=== PATIENT | female | born 1970 | race Caucasian/White ===

== ENCOUNTER 2020-11-27 13:57 | Outpatient (REF) | payer MEDICARE, SELFPAY ==
--- NOTE | ~2020-11-27 | XR_ITS ---
EXAMINATION: XR KNEE, RIGHT CLINICAL INFORMATION: Right knee pain COMPARISON: None TECHNIQUE: Four views of the right knee. FINDINGS: Bone alignment is normal. No fracture or dislocation is seen. Joint spaces are normal. There is no joint effusion. XR/XR knee RT 4V IMPRESSION: Normal right knee.
== END 2020-11-27 13:58 | disposition home or self-care (01) ==
LOC: HO.HMGCX 13:57
PROVIDERS: Visit Provider Hospitalist
DX: M25.561 Pain in right knee (principal)
CPT/HCPCS: 73564

== ENCOUNTER 2021-10-07 00:50 | Inpatient (IN) | payer MEDICARE, OTHER, SELFPAY ==
[2021-10-07] VITALS (8 sets, daily range): BP systolic 120–141; BP diastolic 58–88; PULSE 70–95; RESP 12–18; TEMP 36.6–37.4; O2SAT 94–97; BMI 28.1
--- NOTE | ~2021-10-07 | CT_ITS ---
EXAMINATION: CT ABDOMEN AND PELVIS WITHOUT CONTRAST CLINICAL INFORMATION: Abdominal pain COMPARISON: 10/07/2021 TECHNIQUE: Multidetector volumetric imaging was performed from the superior aspect of the liver through the pubic symphysis. Sagittal and coronal reformatted images were obtained on the technologist's workstation. This CT examination was performed using dose optimization techniques as appropriate, variously including the following: *Automated exposure control *Adjustment of mA and/or kV according to patient size (this includes techniques or standardized protocols for targeted exams where dose is matched to indication/reason for exam; i.e. extremities or head) *Use of iterative reconstruction technique DLP: 692 mGy-cm FINDINGS: LUNG BASES: Minor atelectasis at the lung bases. No pleural effusions. LIVER, GALLBLADDER, AND BILIARY TREE: The unenhanced liver is unremarkable. No biliary dilatation. No focal hepatic masses. Gallstones are again observed within the gallbladder. No adjacent inflammatory change. No change. PANCREAS: Unremarkable. SPLEEN: Unremarkable. ADRENAL GLANDS: Unremarkable. KIDNEYS AND URETERS: No nephrolithiasis or hydronephrosis. No perinephric collections. BLADDER: Unremarkable. GASTROINTESTINAL TRACT: No bowel obstruction or right or left lower quadrant inflammatory change. The stomach however does appear to be diffusely thick walled and slightly indurated. This could reflect gastritis and is unchanged. Less fluid in the colon noted. ABDOMINAL WALL: No significant hernia noted. LYMPH NODES: Normal. VASCULAR: Unremarkable. PELVIC VISCERA: Unremarkable. OSSEOUS STRUCTURES: Again note is made of a plate and screw hardware in the right hemipelvis. No change. There is degenerative change in the lower lumbar spine. No change. CT/CT abdomen pelvis wo con IMPRESSION: Gallstones. Thick-walled stomach showing no change. No bowel obstruction. Fleischner guidelines were followed.
--- NOTE | ~2021-10-07 | CT_ITS ---
EXAMINATION: CT ABDOMEN AND PELVIS WITHOUT CONTRAST CLINICAL INFORMATION: Nausea/vomiting COMPARISON: None TECHNIQUE: Multidetector volumetric imaging was performed from the superior aspect of the liver through the pubic symphysis. Sagittal and coronal reformatted images were obtained on the technologist's workstation. This CT examination was performed using dose optimization techniques as appropriate, variously including the following: *Automated exposure control *Adjustment of mA and/or kV according to patient size (this includes techniques or standardized protocols for targeted exams where dose is matched to indication/reason for exam; i.e. extremities or head) *Use of iterative reconstruction technique DLP: 712 mGy-cm FINDINGS: LUNG BASES: Bibasilar subsegmental atelectasis. Coronary artery calcifications are present. LIVER, GALLBLADDER, AND BILIARY TREE: The liver is normal in size, shape, and attenuation. No biliary ductal dilatation is present. Cholelithiasis is noted. No appreciable gallbladder wall thickening or surrounding inflammation. PANCREAS: Unremarkable. SPLEEN: Unremarkable. ADRENAL GLANDS: Unremarkable. KIDNEYS AND URETERS: The kidneys are normal in size, shape, and attenuation. No hydronephrosis, hydroureter, or calculi seen. No perinephric stranding. BLADDER: Unremarkable. GASTROINTESTINAL TRACT: Small bowel is nondilated. Fluid is present within some segments of the colon, without significant wall thickening or disproportionate dilation. The appendix is unremarkable. No free fluid or free air is seen. ABDOMINAL WALL: No significant hernia is appreciated. LYMPH NODES: Normal. VASCULAR: Unremarkable. PELVIC VISCERA: Unremarkable. OSSEOUS STRUCTURES: There is plate and screw hardware along the right pelvis including the acetabulum and superior pubic ramus. There is degenerative change in the lower lumbar spine. CT/CT abdomen pelvis wo con IMPRESSION: 1. No evidence of bowel obstruction. Fluid is evident within some segments of the colon, which can be associated with diarrhea, without significant wall thickening. 2. Cholelithiasis. 3. Coronary artery calcifications. Correlation with cardiac risk factors is recommended.
--- NOTE | ~2021-10-07 | XR_ITS ---
EXAMINATION: XR CHEST CLINICAL INFORMATION: NG tube placement COMPARISON: None TECHNIQUE: Frontal view of the chest was obtained. FINDINGS: The enteric tube courses along the esophagus and into the proximal stomach. The side-port of the tube is approximately 3 cm above the level of the esophagogastric junction. Consider advancing the tube further into the stomach. Lungs are adequately expanded. The right diaphragm is elevated. Minimal linear opacity of scar or discoid atelectasis in the left midlung. No consolidation or pleural effusion. Cardiac silhouette has normal size and contour. There is dextroscoliosis of the thoracic spine. No pneumoperitoneum. XR/XR chest 1V IMPRESSION: * No acute pulmonary disease. * The tip of the NG tube is in the proximal stomach and side port of tube is projecting just above the level of the esophagogastric junction. Consider advancing the tube further into the stomach.
--- NOTE | 2021-10-07 01:55 | ECG_ITS ---
Test Reason : REPEAT Blood Pressure : / mmHG Vent. Rate : 081 BPM Atrial Rate : 081 BPM P-R Int : 180 ms QRS Dur : 082 ms QT Int : 384 ms P-R-T Axes : 059 081 019 degrees QTc Int : 446 ms Normal sinus rhythm Nonspecific T wave abnormality Abnormal ECG When compared with ECG of 07-OCT-2021 01:11, Nonspecific T wave abnormality now evident in Anterolateral leads Referred By: Nicki Willard Electronically Signed By:Danielito Lehman
[2021-10-07] MEDS: 0.9 % Sodium Chloride 1,000 ML 999 ML IV ×2 (02:08→06:08)
[2021-10-07 02:38] LABS: INTERNATIONAL NORM RATIO 0.9 (0.9-1.1); Prothrombin Time 10.5 SEC (9.9-13.0)
[2021-10-07 02:41] LABS: MANUAL DIFF FLAG NO
[2021-10-07 02:44] LABS: Basophils Percent Auto 0.4 % (0-2); Eosinophils Absolute Auto 0.1 X10*3/uL (0.0-0.4); Eosinophils Percent Auto 0.6 % (0-4); Hematocrit 44.6 % (37.0-47.0); Hemoglobin 14.9 g/dl (12.0-16.0); Imm Gran Abs Auto 0.04 X10*3/uL (0.00-0.03); Imm Gran Pct Auto 0.5 % (0.0-0.4); Lymphocytes Absolute Auto 1.6 X10*3/uL (1.2-4.9); Lymphocytes Percent Auto 19.8 % (20-40); Mean Corpuscular HGB Conc 33.4 g/dl (31.0-35.0); Mean Corpuscular Hemoglobin 29.7 pg (27.0-33.0); Mean Platelet Volume 9.5 fL (9.4-12.3); Monocytes Absolute Auto 0.5 X10*3/uL (0.1-1.2); Monocytes Percent Auto 6.2 % (2-11); Neutrophils Absolute Auto 5.9 x10*3/uL (2.0-8.3); Neutrophils Percent Auto 72.5 % (45-73); Platelet Count 201 X10*3/uL (160-400); Red Blood Count 5.01 X10*6/uL (4.20-5.50); Red Cell Distribution Width 13.4 % (11.0-16.0); White Blood Count 8.1 X10*3/uL (4.8-10.8)
[2021-10-07 02:51] LABS: Ethanol < 10 mg/dL
[2021-10-07 02:54] LABS: Acetaminophen LAB 29 mcg/mL (<30); Alanine Aminotransferase 13 U/L (0-31); Albumin Level 3.8 g/dL (3.5-5.0); Alkaline Phosphatase 76 U/L (39-117); Anion Gap 13 (12-20); Aspartate Amino Transferase 15 U/L (5-31); Bilirubin Total 0.3 mg/dL (0.0-1.0); Blood Urea Nitrogen 19 mg/dL (9-16); Calcium 9.3 mg/dL (8.4-10.2); Carbon Dioxide 17 mmol/L (22-29); Chloride 109 mmol/L (96-108); Creatinine Clr Calc Pharmacy 66.2; Estimated Glomerular Filt Rate > 60; Glucose Random 102 mg/dL (60-115); Lipase 32 U/L (8-78); Magnesium 2.4 mg/dL (1.6-2.6); Potassium 3.8 mmol/L (3.3-5.1); Salicylate < 5.0 mg/dL (15-30); Sodium 135 mmol/L (135-145); Total Protein 6.8 g/dL (6.5-8.0)
--- NOTE | 2021-10-07 03:40 | ED.OVERDOSE ---
HPI - Overdose General Chief Complaint: Overdose Stated Complaint: OD/SI Time Seen by Provider: 10/07/21 01:54 Source: patient Mode of arrival: EMS History of Present Illness HPI Narrative: 51-year-old female with history of depression is brought in by EMS for attempting intentional suicide earlier in the evening by taking 30 NyQuil capsules, 30 lithium capsules, 6-1 mg Klonopin as, 4-2 mg Ativan. She states that 2 hours afterwards she began vomiting and she thinks that this is due to a reaction of the medication and that prompted her to call EMS because she stated she did not feel well and ?it was not working anyway?. Patient otherwise denies any fever, chills and has a longstanding history of depression that is treated with ketamine as an outpatient. Patient reports being stressed out about work and not ?making enough money?. Related Data Previous Rx's Medication Instructions Recorded oxycodone-acetaminophen 5 mg-325 1 tab PO Q6H PRN #20 tab 11/27/20 mg tablet (Percocet) prednisone 20 mg tablet 20 mg PO .COMPLEX #18 tab 11/27/20 Allergies Allergy/AdvReac Type Severity Reaction Status Date / Time gabapentin Allergy Unknown Verified 11/27/20 13:51 Review of Systems Review of Systems: Pertinent positives and negatives as stated in HPI 10 point review of systems is otherwise negative. PMFSH Past Medical History Source: nursing notes reviewed Social History Social History Smoked in Last 30 Days: No Use of substances other than those prescribed or required for medical reasons: No Advance Directives: No Physical Exam Vital Signs: Vital Signs: Last Vital Signs Temp 97.9 F 10/07/21 03:15 Pulse 70 10/07/21 03:15 Resp 16 10/07/21 03:15 BP 124/69 10/07/21 03:15 Pulse Ox 94 10/07/21 03:15 BMI result Body Mass Index 28.1 VITAL SIGNS: Reviewed. GENERAL: Well developed, well nourished, in no acute distress. HEAD: Normocephalic/atraumatic EYES: PERRLA, EOMI EARS: Ext canals without abnormality OROPHARYNX: no oral lesions noted, posterior pharynx clear NECK: Supple, no adenopathy LUNGS: Normal breath sounds. No adventitious sounds or accessory muscle use. SpO2<94> CARDIOVASCULAR: Regular rate and rhythm without noted murmurs ABDOMEN: Soft, significant epigastric pain, non-distended with bowel sounds. MUSCULOSKELETAL: No tenderness, deformities, or effusions noted on gross inspection. EXTREMITIES: No cyanosis, clubbing or edema. SKIN: Inspection of the skin reveals no rashes, ulcerations NEUROLOGIC: Alert and oriented x 4. Strength and sensation to light touch were grossly intact x 4. Course Course Course Narrative: This is a 51-year-old female with history and clinical presentation consistent with intentional overdose, full labs and toxicology sent to the lab and EKG does not show abnormalities at this time. On calculation patient has ingested 9750 mg. Reevaluation(s) Reevaluation #1: Poison control recommendations: - Repeat CBC, CMP, ASA, Tylenol - Get [place] Level - Whole Bowel Irrigation (1-2L GoLytely/hr) - NS@200cc/hr - Start NAC Time: 03:40 MDM - Overdose Lab Data Result diagrams: 10/07/21 03:54 10/07/21 02:27 Labs: Lab Results 10/07/21 10/07/21 10/07/21 Range/Units 02:27 02:27 02:27 WBC (4.8-10.8) X10*3/uL RBC (4.20-5.50) X10*6/uL Hgb (12.0-16.0) g/dl Hct (37.0-47.0) % MCV (80.0-98.0) fL MCH (27.0-33.0) pg MCHC (31.0-35.0) g/dl RDW (11.0-16.0) % Plt Count (160-400) X10*3/uL MPV (9.4-12.3) fL Immature Gran % (Auto) (0.0-0.4) % Neut % (Auto) (45-73) % Lymph % (Auto) (20-40) % [place] % (Auto) (2-11) % Eos % (Auto) (0-4) % Baso % (Auto) (0-2) % Lymph # (Auto) (1.2-4.9) X10*3/uL [place] # (Auto) (0.1-1.2) X10*3/uL Eos # (Auto) (0.0-0.4) X10*3/uL Baso # (Auto) (0.0-0.2) X10*3/uL Abs Immat Gran (auto) (0.00-0.03) X10*3/uL Absolute Neuts (auto) (2.0-8.3) x10*3/uL Absolute Nucleated RBC (0.0-0.012) X10*3/uL Nucleated RBC % (auto) (0.0-0.2) /100WBC PT 10.5 (9.9-13.0) SEC INR 0.9 (0.9-1.1) Sodium 135 (135-145) mmol/L Potassium 3.8 (3.3-5.1) mmol/L Chloride 109 H (96-108) mmol/L Carbon Dioxide 17 L (22-29) mmol/L Anion Gap 13 (12-20) BUN 19 H (9-16) mg/dL Creatinine 0.91 (0.5-1.4) mg/dL Estim Creat Clear Calc 66.2 Estimated GFR > 60 Random Glucose 102 (60-115) mg/dL Calcium 9.3 (8.4-10.2) mg/dL Magnesium 2.4 (1.6-2.6) mg/dL Total Bilirubin 0.3 (0.0-1.0) mg/dL AST 15 (5-31) U/L ALT 13 (0-31) U/L Alkaline Phosphatase 76 (39-117) U/L Total Protein 6.8 (6.5-8.0) g/dL Albumin 3.8 (3.5-5.0) g/dL Lipase 32 (8-78) U/L Salicylates < 5.0 L (15-30) mg/dL Acetaminophen 29 (<30) mcg/mL [place] (0.60-1.20) mmol/L Ethyl Alcohol < 10 mg/dL 10/07/21 10/07/21 10/07/21 Range/Units 02:27 02:34 03:54 WBC 8.1 9.3 (4.8-10.8) X10*3/uL RBC 5.01 5.02 (4.20-5.50) X10*6/uL Hgb 14.9 14.8 (12.0-16.0) g/dl Hct 44.6 44.7 (37.0-47.0) % MCV 89.0 89.0 (80.0-98.0) fL MCH 29.7 29.5 (27.0-33.0) pg MCHC 33.4 33.1 (31.0-35.0) g/dl RDW 13.4 13.3 (11.0-16.0) % Plt Count 201 202 (160-400) X10*3/uL MPV 9.5 9.6 (9.4-12.3) fL Immature Gran % (Auto) 0.5 H 0.4 (0.0-0.4) % Neut % (Auto) 72.5 79.2 H (45-73) % Lymph % (Auto) 19.8 L 15.7 L (20-40) % [place] % (Auto) 6.2 4.0 (2-11) % Eos % (Auto) 0.6 0.4 (0-4) % Baso % (Auto) 0.4 0.3 (0-2) % Lymph # (Auto) 1.6 1.5 (1.2-4.9) X10*3/uL [place] # (Auto) 0.5 0.4 (0.1-1.2) X10*3/uL Eos # (Auto) 0.1 0.0 (0.0-0.4) X10*3/uL Baso # (Auto) 0.0 0.0 (0.0-0.2) X10*3/uL Abs Immat Gran (auto) 0.04 H 0.04 H (0.00-0.03) X10*3/uL Absolute Neuts (auto) 5.9 7.3 (2.0-8.3) x10*3/uL Absolute Nucleated RBC 0.000 0.000 (0.0-0.012) X10*3/uL Nucleated RBC % (auto) 0.0 0.0 (0.0-0.2) /100WBC PT (9.9-13.0) SEC INR (0.9-1.1) Sodium (135-145) mmol/L Potassium (3.3-5.1) mmol/L Chloride (96-108) mmol/L Carbon Dioxide (22-29) mmol/L Anion Gap (12-20) BUN (9-16) mg/dL Creatinine (0.5-1.4) mg/dL Estim Creat Clear Calc Estimated GFR Random Glucose (60-115) mg/dL Calcium (8.4-10.2) mg/dL Magnesium (1.6-2.6) mg/dL Total Bilirubin (0.0-1.0) mg/dL AST (5-31) U/L ALT (0-31) U/L Alkaline Phosphatase (39-117) U/L Total Protein (6.5-8.0) g/dL Albumin (3.5-5.0) g/dL Lipase (8-78) U/L Salicylates (15-30) mg/dL Acetaminophen (<30) mcg/mL [place] 1.80 H* (0.60-1.20) mmol/L Ethyl Alcohol mg/dL ECG Data Attestation: I personally reviewed and interpreted this ECG as follows: Prior ECG tracings: not available for review Interpretation: Normal sinus rhythm, HR-76, no STEMI, DE/QRS/QTC are within normal limits and there is no QT prolongation. Critical Care Time Critical Care Time Critical Care Time: Yes Total Critical Care Time: 45 Attestation: I personally attest to this time spent taking care of the patient. Discharge Plan Discharge Clinical Impression: Intentional overdose, Depression, Suicidal ideation Patient Disposition: Admitted As Inpatient Prescriptions: No Action prednisone 20 mg tablet 20 mg PO .COMPLEX Qty: 18 0RF Rx Instructions: 20 mg PO 3 p.o. daily for 3 days followed by 2 p.o. daily for 3 days followed by 1 p.o. daily for 3 days; oxycodone-acetaminophen [Percocet] 5-325 mg tablet 1 tab PO Q6H PRN (Reason: pain) Qty: 20 0RF
--- NOTE | 2021-10-07 03:56 | PC.NURSE ---
this RN spoke with poison control, MD aware of poison control recommendations.
[2021-10-07 04:03] LABS: MANUAL DIFF FLAG NO
[2021-10-07 04:04] LABS: Basophils Percent Auto 0.3 % (0-2); Eosinophils Percent Auto 0.4 % (0-4); Hematocrit 44.7 % (37.0-47.0); Hemoglobin 14.8 g/dl (12.0-16.0); Imm Gran Abs Auto 0.04 X10*3/uL (0.00-0.03); Imm Gran Pct Auto 0.4 % (0.0-0.4); Lymphocytes Absolute Auto 1.5 X10*3/uL (1.2-4.9); Lymphocytes Percent Auto 15.7 % (20-40); Mean Corpuscular HGB Conc 33.1 g/dl (31.0-35.0); Mean Corpuscular Hemoglobin 29.5 pg (27.0-33.0); Mean Platelet Volume 9.6 fL (9.4-12.3); Monocytes Absolute Auto 0.4 X10*3/uL (0.1-1.2); Neutrophils Absolute Auto 7.3 x10*3/uL (2.0-8.3); Neutrophils Percent Auto 79.2 % (45-73); Platelet Count 202 X10*3/uL (160-400); Red Blood Count 5.02 X10*6/uL (4.20-5.50); Red Cell Distribution Width 13.3 % (11.0-16.0); White Blood Count 9.3 X10*3/uL (4.8-10.8)
[2021-10-07] MEDS: 0.9 % Sodium Chloride 1,000 ML 200 ML IVCONT (04:11)
--- NOTE | 2021-10-07 04:12 | PC.NURSE ---
pt had one episode of bloody vomit, MD aware. pt continues to have diarrhea.
[2021-10-07] MEDS: Prochlorperazine Edisylate 10 MG/2 ML VIAL IVPUSH (04:22)
[2021-10-07 04:24] LABS: Acetaminophen LAB 13 mcg/mL (<30); Alanine Aminotransferase 13 U/L (0-31); Albumin Level 3.9 g/dL (3.5-5.0); Alkaline Phosphatase 75 U/L (39-117); Anion Gap 9 (12-20); Aspartate Amino Transferase 13 U/L (5-31); Bilirubin Total 0.3 mg/dL (0.0-1.0); Blood Urea Nitrogen 19 mg/dL (9-16); Calcium 9.3 mg/dL (8.4-10.2); Carbon Dioxide 20 mmol/L (22-29); Chloride 109 mmol/L (96-108); Creatinine Clr Calc Pharmacy 72.6; Estimated Glomerular Filt Rate > 60; Glucose Random 112 mg/dL (60-115); Potassium 3.9 mmol/L (3.3-5.1); Salicylate < 5.0 mg/dL (15-30); Sodium 134 mmol/L (135-145); Total Protein 6.9 g/dL (6.5-8.0)
[2021-10-07] MEDS: Dextrose 5 % and 0.45 % NaCl 1,000 ML 75 ML IVCONT (05:17)
[2021-10-07 05:21] LABS: COVID-19 Test Negative (Negative); IDNOW Serial# 16C4AD1C; Influenza A Negative (Negative); Influenza B2 Negative (Negative)
--- NOTE | 2021-10-07 05:52 | PC.NURSE ---
This RN spoke with posion control about POC, MD notified to contact posion control
--- NOTE | 2021-10-07 05:52 | PC.NURSE ---
pt note secondary to pt care, this RN as well as RN Lanny verified dose of acetylcysteine with pharmaist lexie Bonilla ensured this RN that dose was accurate despite pump saying max dose is 15mg.
[2021-10-07] MEDS: Dextrose 5 % and 0.9 % NaCl 1,000 ML 200 ML IVCONT ×4 (06:17→22:59)
--- NOTE | 2021-10-07 06:24 | PM.IMHP ---
History of Present Illness Date of Service: 10/07/21 Chief Complaint: drug overdose 51-year-old female with a past medical history of anxiety, depression presented to the hospital with a chief complaint of drug overdose. patient reported that around 22:00 last night she wanted to herself, had suicidal ideation, overdosed on 4 tablets of 2 mg of Ativan, 30 tablets of NyQuil, 60 tablets of lithium-dose unknown; after that she called ambulance herself and came to the ER for further evaluation. Patient reports that post ingestion she had multiple episodes of nausea and vomiting- reports most of the stuff came out of she vomited. Denies any nausea vomiting or diarrhea. Reports mild abdominal discomfort. Denies any chest pain or palpitations Denies any urinary symptoms. Review of all other systems is negative except mentioned above ER course: Per ER team patient was febrile, labs were essentially benign, liver panel within normal limits; EKG showed no acute findings; poison control was notified - suggested GoLYTELY but patient refusing likely. Patient was also started on N-acetylcysteine protocol. Salsalate level was less than 5, Tylenol level was 29 followed by 13; lithium level was 1.8. Section 12 placed Admitted for further management PMFSH Pertinent family history: denies any significant family history Social History Smoked in Last 30 Days: No Use of substances other than those prescribed or required for medical reasons: No Advance Directives: No Meds Allergies Allergy/AdvReac Type Severity Reaction Status Date / Time gabapentin Allergy Unknown Verified 11/27/20 13:51 Active Medications: Current Medications Heparin Sodium (Porcine) (Heparin Sodium,Porcine 5,000 Unit/Ml Vial) 5,000 unit SUBCUT Q8H [facility] Sodium Chloride (Ns) 1,000 mls @ 200 mls/hr IVCONT .Q5H [facility] Stop: 10/07/21 08:44 Last Admin: 10/07/21 04:11 Dose: 200 mls/hr Documented by: Sodium Chloride (Ns) 1,000 mls @ 999 mls/hr IV .Q1H1M [facility] Stop: 10/07/21 07:00 Last Admin: 10/07/21 06:08 Dose: 999 mls/hr Documented by: Dextrose/Sodium Chloride (D5ns) 1,000 mls @ 200 mls/hr IVCONT .Q5H [facility] Last Admin: 10/07/21 06:17 Dose: 200 mls/hr Documented by: Melatonin (Melatonin 3 Mg Tablet) 6 mg PO BEDTIME PRN PRN Reason: Insomnia Ondansetron HCl (Ondansetron Hcl 4 Mg/2 Ml Vial) 4 mg IVPUSH Q8H PRN PRN Reason: Nausea and Vomiting Polyethylene Glycol/Electrolytes (Peg 3350/Na Sulf,Bicarb,Cl/Kcl 4,000 Ml Soln.Recon) 480 ml PO Q10M [facility] Stop: 10/07/21 06:41 Sodium Chloride (0.9 % Sodium Chloride Flush 3 Ml Syringe) 3 ml IVFLUSH QSHIFT [facility] Physical Exam Vital Signs and Narrative: Vital Signs: Last Vital Signs Temp 98.6 F 10/07/21 04:38 Pulse 72 10/07/21 04:38 Resp 16 10/07/21 04:38 BP 120/88 10/07/21 04:38 Pulse Ox 94 10/07/21 03:15 BMI result Body Mass Index 28.1 Gen: Appears be in no acute distress HEENT: NCAT, Moist mucosa. Pulmonary: Vesicular breath sounds, fair air entry CVS: Normal S1-S2 Abdomen: BS+, Soft, Nontender Extremities: Warm well perfused Neuro: Alert and awake. Results Labs CBC and Chem 7: 10/07/21 03:54 10/07/21 03:54 Labs: Laboratory Results - last 24 hr 10/07/21 10/07/21 10/07/21 02:27 02:27 02:27 MCV MCH MCHC RDW Plt Count MPV Immature Gran % (Auto) Neut % (Auto) Lymph % (Auto) [place] % (Auto) Eos % (Auto) Baso % (Auto) Lymph # (Auto) [place] # (Auto) Eos # (Auto) Baso # (Auto) Abs Immat Gran (auto) Absolute Neuts (auto) Absolute Nucleated RBC Nucleated RBC % (auto) PT 10.5 INR 0.9 Anion Gap 13 Estim Creat Clear Calc 66.2 Estimated GFR > 60 Random Glucose 102 Calcium 9.3 Magnesium 2.4 Total Bilirubin 0.3 AST 15 ALT 13 Alkaline Phosphatase 76 Total Protein 6.8 Albumin 3.8 Lipase 32 Salicylates < 5.0 L Acetaminophen 29 [place] Ethyl Alcohol < 10 COVID-19 (TIKI) COVID-19 Clin Com Influenza Type A (BREE) Influenza Type B (BREE) Influenza A & B Note Blood Type Antibody Screen 10/07/21 10/07/21 10/07/21 02:27 02:34 03:54 MCV 89.0 89.0 MCH 29.7 29.5 MCHC 33.4 33.1 RDW 13.4 13.3 Plt Count 201 202 MPV 9.5 9.6 Immature Gran % (Auto) 0.5 H 0.4 Neut % (Auto) 72.5 79.2 H Lymph % (Auto) 19.8 L 15.7 L [place] % (Auto) 6.2 4.0 Eos % (Auto) 0.6 0.4 Baso % (Auto) 0.4 0.3 Lymph # (Auto) 1.6 1.5 [place] # (Auto) 0.5 0.4 Eos # (Auto) 0.1 0.0 Baso # (Auto) 0.0 0.0 Abs Immat Gran (auto) 0.04 H 0.04 H Absolute Neuts (auto) 5.9 7.3 Absolute Nucleated RBC 0.000 0.000 Nucleated RBC % (auto) 0.0 0.0 PT INR Anion Gap Estim Creat Clear Calc Estimated GFR Random Glucose Calcium Magnesium Total Bilirubin AST ALT Alkaline Phosphatase Total Protein Albumin Lipase Salicylates Acetaminophen [place] 1.80 H* Ethyl Alcohol COVID-19 (TIKI) COVID-19 Clin Com Influenza Type A (BREE) Influenza Type B (BREE) Influenza A & B Note Blood Type Antibody Screen 10/07/21 10/07/21 10/07/21 03:54 04:42 04:57 MCV MCH MCHC RDW Plt Count MPV Immature Gran % (Auto) Neut % (Auto) Lymph % (Auto) [place] % (Auto) Eos % (Auto) Baso % (Auto) Lymph # (Auto) [place] # (Auto) Eos # (Auto) Baso # (Auto) Abs Immat Gran (auto) Absolute Neuts (auto) Absolute Nucleated RBC Nucleated RBC % (auto) PT INR Anion Gap 9 L Estim Creat Clear Calc 72.6 Estimated GFR > 60 Random Glucose 112 Calcium 9.3 Magnesium Total Bilirubin 0.3 AST 13 ALT 13 Alkaline Phosphatase 75 Total Protein 6.9 Albumin 3.9 Lipase Salicylates < 5.0 L Acetaminophen 13 [place] Ethyl Alcohol COVID-19 (TIKI) Negative COVID-19 Clin Com See Note Influenza Type A (BREE) Influenza Type B (BREE) Influenza A & B Note Blood Type O Positive Antibody Screen NEGATIVE 10/07/21 04:57 MCV MCH MCHC RDW Plt Count MPV Immature Gran % (Auto) Neut % (Auto) Lymph % (Auto) [place] % (Auto) Eos % (Auto) Baso % (Auto) Lymph # (Auto) [place] # (Auto) Eos # (Auto) Baso # (Auto) Abs Immat Gran (auto) Absolute Neuts (auto) Absolute Nucleated RBC Nucleated RBC % (auto) PT INR Anion Gap Estim Creat Clear Calc Estimated GFR Random Glucose Calcium Magnesium Total Bilirubin AST ALT Alkaline Phosphatase Total Protein Albumin Lipase Salicylates Acetaminophen [place] Ethyl Alcohol COVID-19 (TIKI) COVID-19 Clin Com Influenza Type A (BREE) Negative Influenza Type B (BREE) Negative Influenza A & B Note See Note Blood Type Antibody Screen Assessment and Plan Plan 51-year-old female with a past medical history of anxiety, depression presented to the hospital with a chief complaint of drug overdose. Drug overdose: Patient took 30 tablets of NyQuil, 4 tablets of Ativan 2 mg, 60 tablets of [place]. Patient had 6 episodes of vomiting at home-reports most of the stuff came out after she vomited at home. lithium level was 1.8 Tylenol level was 29-->13 Poison control was notified -recommended every 2 or lithium checks, normal saline at 200 cc, serial EKG, telemetry, N acetylcysteine protocol, Golytely. patient refusing GoLYTELY. Hematemesis: Patient had 2 episodes of rimma hematemesis in the ER. ? from retching secondary to multiple episodes of vomiting NPO IV PPI Gastroenterology consult- Dr yun Notiied NG tube High [place] levels: patient on normal saline at 200 cc/hour Will repeat lithium levels every 2 hours Nephrology consult Suicidal ideation: 1 on 1 observation. Suicide precautions. Psychiatric consult. Section 12 ordered by ER. DVT prophylaxis: Pneumatic compression boots Code status: Full code Quality Stroke Does the patient have a stroke diagnosis?: No VTE Prior VTE?: No VTE Risk Level:: Medical - moderate - high VTE Device Contraindication: Treatment Not Indicated VTE Drug Contraindication: N/A - Med Ordered
[2021-10-07] MEDS: ondansetron HCL 4 MG/2 ML VIAL IVPUSH ×2 (06:40→13:05)
--- NOTE | 2021-10-07 06:42 | PC.NURSE ---
pt had another episode of bloody vomit, MD aware. per MD pt to be kept NPO,.
--- NOTE | 2021-10-07 06:50 | ECG_ITS ---
Test Reason : OVERDOSE Blood Pressure : / mmHG Vent. Rate : 076 BPM Atrial Rate : 076 BPM P-R Int : 172 ms QRS Dur : 082 ms QT Int : 396 ms P-R-T Axes : 052 071 025 degrees QTc Int : 445 ms Normal sinus rhythm Normal ECG No previous ECGs available Referred By: Nicki Willard Electronically Signed By:Danielito Lehman
[2021-10-07 06:57] LABS: MANUAL DIFF FLAG NO
[2021-10-07 07:02] LABS: Basophils Percent Auto 0.4 % (0-2); Eosinophils Percent Auto 0.1 % (0-4); Hematocrit 40.3 % (37.0-47.0); Hemoglobin 13.5 g/dl (12.0-16.0); Imm Gran Abs Auto 0.04 X10*3/uL (0.00-0.03); Imm Gran Pct Auto 0.5 % (0.0-0.4); Lymphocytes Absolute Auto 1.4 X10*3/uL (1.2-4.9); Lymphocytes Percent Auto 16.3 % (20-40); Mean Corpuscular HGB Conc 33.5 g/dl (31.0-35.0); Mean Corpuscular Hemoglobin 29.9 pg (27.0-33.0); Mean Corpuscular Volume 89.4 fL (80.0-98.0); Mean Platelet Volume 9.5 fL (9.4-12.3); Monocytes Absolute Auto 0.3 X10*3/uL (0.1-1.2); Monocytes Percent Auto 3.2 % (2-11); Neutrophils Absolute Auto 6.7 x10*3/uL (2.0-8.3); Neutrophils Percent Auto 79.5 % (45-73); Platelet Count 186 X10*3/uL (160-400); Red Blood Count 4.51 X10*6/uL (4.20-5.50); Red Cell Distribution Width 13.2 % (11.0-16.0); White Blood Count 8.4 X10*3/uL (4.8-10.8)
[2021-10-07 07:07] LABS: Lithium 1.47 mmol/L (0.60-1.20)
[2021-10-07 07:15] LABS: Alanine Aminotransferase 10 U/L (0-31); Albumin Level 3.5 g/dL (3.5-5.0); Alkaline Phosphatase 61 U/L (39-117); Aspartate Amino Transferase 11 U/L (5-31); Bilirubin Direct < 0.2 mg/dL (0.0-0.5); Bilirubin Total 0.3 mg/dL (0.0-1.0); Total Protein 6.1 g/dL (6.5-8.0)
[2021-10-07] MEDS: Pantoprazole Sodium 40 MG/10 ML VIAL IVPUSH ×2 (07:50→16:54)
[2021-10-07 08:40] LABS: Lithium 1.25 mmol/L (0.60-1.20)
--- NOTE | 2021-10-07 08:41 | PC.NURSE ---
verbal order by dr. Vigil to remove ngt for comfort.
[2021-10-07 08:47] LABS: Acetaminophen LAB 2 mcg/mL (<30); Alanine Aminotransferase 10 U/L (0-31); Alanine Aminotransferase 12 U/L (0-31); Albumin Level 3.5 g/dL (3.5-5.0); Albumin Level 3.6 g/dL (3.5-5.0); Alkaline Phosphatase 56 U/L (39-117); Alkaline Phosphatase 57 U/L (39-117); Anion Gap 7 (12-20); Anion Gap 9 (12-20); Aspartate Amino Transferase 13 U/L (5-31); Bilirubin Total 0.3 mg/dL (0.0-1.0); Blood Urea Nitrogen 14 mg/dL (9-16); Calcium 8.2 mg/dL (8.4-10.2); Calcium 8.3 mg/dL (8.4-10.2); Carbon Dioxide 18 mmol/L (22-29); Chloride 114 mmol/L (96-108); Chloride 116 mmol/L (96-108); Creatinine Clr Calc Pharmacy 81.3; Creatinine Clr Calc Pharmacy 83.6; Estimated Glomerular Filt Rate > 60; Glucose Random 125 mg/dL (60-115); Glucose Random 127 mg/dL (60-115); Potassium 3.9 mmol/L (3.3-5.1); Potassium 4.2 mmol/L (3.3-5.1); Sodium 137 mmol/L (135-145); Total Protein 6.3 g/dL (6.5-8.0)
--- NOTE | 2021-10-07 09:10 | PHA.MEDREC ---
Pharmacy Consult ? Medication Reconciliation Pharmacy has completed the medication reconciliation. Patient reports taking topamax and prozac, both last filled in july for 30 day supplies. Patient report Topamax 100 mg while prescripition state 200 mg. Patient report she last took her medications sometime this week. Patient not adherent to medication. She does not take trazodone or zolipdem and no longer take Emgality. Nel Bustillos, PharmD
--- NOTE | 2021-10-07 11:54 | PC.NURSE ---
Poision control contacted regarding 2am lab work. Plan to check LFT/INR/Tylenol level to assess need for additional doses of Acetylcystine
[2021-10-07 12:46] LABS: Acetaminophen LAB < 1 mcg/mL (<30); Alanine Aminotransferase 11 U/L (0-31); Albumin Level 3.5 g/dL (3.5-5.0); Alkaline Phosphatase 56 U/L (39-117); Anion Gap 10 (12-20); Aspartate Amino Transferase 13 U/L (5-31); Bilirubin Total 0.3 mg/dL (0.0-1.0); Blood Urea Nitrogen 12 mg/dL (9-16); Calcium 8.4 mg/dL (8.4-10.2); Carbon Dioxide 17 mmol/L (22-29); Chloride 113 mmol/L (96-108); Creatinine Clr Calc Pharmacy 80.3; Estimated Glomerular Filt Rate > 60; Glucose Random 153 mg/dL (60-115); Potassium 3.9 mmol/L (3.3-5.1); Sodium 136 mmol/L (135-145); Total Protein 6.2 g/dL (6.5-8.0)
--- NOTE | 2021-10-07 13:06 | PC.NURSE ---
Ok to give zofran PRN at this time per md.
--- NOTE | 2021-10-07 13:35 | MHC.CM.PN ---
PT REPORTS SHE LIVES WITH HER MOTHER AND IS INDEPENDENT WITH CARE SHE REPORTS SHE MOVED HERE FROM [facility] LAST YEAR AND HAS NO YET SET UP CARE WITH A PCP SHE DENIES USING DME OR HOME SERVICES PT DECLINES TO COMPLETE A HCP PT REPORTS SHE HAS BEEN VACCINATED AGAINST COVID WITH MODERNA X 2 AND A BOOSTER IMM DELIVERED, COPY SENT TO [facility] CURRENTLY, DC PLAN TBD PENDING CRISIS EVAL HOME VS [facility] TRANSPORT TBD BY DISPOSITION
--- NOTE | 2021-10-07 14:03 | PM.GICN ---
History of Present Illness Data of Consult Service Date: 10/07/21 Requesting physician: Josh Puentes Primary Care Provider: Unknown Physician HPI Reason for consult: coffee ground emesis ?51-year-old female with a past medical history of anxiety, depression, DM, hypothyroidismm who I am seeing for assessment for coffee ground emesis Patient is admitted with deliberate drug OD and suicidal ideation. she took 4 tablets of 2 mg of Ativan, 30 tablets of NyQuil, 60 tablets of lithium. she does not take regular NSAIDs. she then had multiple episodes of nausea and vomiting with some coffee ground emesis with mild epigastric discomfort which improved with emesis. At time of my interview with her she had not vomited for 2 hrs. She denies melenic stools, no rectal bleeding, no constipation or diarrhea, she has a mild headache and feels thirsty.\ Denies any chest pain or palpitations Denies any urinary symptoms.? Patient was started on N-acetylcysteine protocol Labs: Salicylate level was less than 5, Tylenol level was 29 followed by 13; lithium level was 1.8. HGB 14.9--->13.5 g/dl vitals stable EKG showed no acute findings PMH: hypthyoridism DM low b12 Review of Systems Review of Systems: Constitutional : No Weight loss, No Fever, No Chills ENT/Mouth : No sore throat, No Rhinorrhea Eyes: No Swelling, No Redness Cardiovascular : No Chest Pain, No SOB, No Edema Respiratory : No Cough, No Sputum, No Wheezing Gastrointestinal : see HPI Genitourinary : NO Dysuria, No Urinary Frequency, No Hematuria, No Urgency Musculoskeletal : No joint pain, No Myalgias, No Joint Swelling Skin : No Skin Lesions, No rash Neuro : No Weakness, No Numbness, No Dizziness, + Headache Psych : No Anxiety/Panic, + Depression Heme/Lymph: No Bruising, No Lymphadenopathy Endocrine : No Polyuria, No Polydipsia All other systems reviewed and are negative. [facility] Family History Pertinent family history: no FH of peptic ulcer disease, stomach disorders Social History Social History Smoked in Last 30 Days: No Use of substances other than those prescribed or required for medical reasons: No Advance Directives: No service: No Current occupational status: unemployed Social History Smoked in Last 30 Days: No Use of substances other than those prescribed or required for medical reasons: No Advance Directives: No service: No Current occupational status: unemployed Meds Allergies Allergy/AdvReac Type Severity Reaction Status Date / Time gabapentin Allergy Unknown Verified 11/27/20 13:51 Active Medications: Current Medications Cyanocobalamin (Cyanocobalamin (Vitamin B-12) 1,000 Mcg Tablet) 1,000 mcg PO DAILY [facility] Fluoxetine HCl (Fluoxetine Hcl 20 Mg Capsule) 60 mg PO DAILY [facility] Hydroxyzine HCl (Hydroxyzine Hcl 50 Mg Tablet) 50 mg PO BEDTIME PRN PRN Reason: Insomnia Dextrose/Sodium Chloride (D5ns) 1,000 mls @ 200 mls/hr IVCONT .Q5H [facility] Last Admin: 10/07/21 11:50 Dose: 200 mls/hr Documented by: Acetylcysteine 6,985.3 mg/ (Dextrose) 1,034.9265 mls @ 62.5 mls/hr IV ONCE ONE Stop: 10/08/21 04:33 Last Admin: 10/07/21 11:57 Dose: 62.5 mls/hr Documented by: Levothyroxine Sodium (Levothyroxine Sodium 75 Mcg Tablet) 75 mcg PO DAILY@0600 [facility] Lorazepam (Lorazepam 1 Mg Tablet) 1 mg PO BID PRN PRN Reason: Anxiety Melatonin (Melatonin 3 Mg Tablet) 6 mg PO BEDTIME PRN PRN Reason: Insomnia Metformin HCl (Metformin Hcl 500 Mg Tablet) 500 mg PO BID [facility] Ondansetron HCl (Ondansetron Hcl 4 Mg/2 Ml Vial) 4 mg IVPUSH Q8H PRN PRN Reason: Nausea and Vomiting Last Admin: 10/07/21 13:05 Dose: 4 mg Documented by: Pantoprazole Sodium (Pantoprazole Sodium 40 Mg/10 Ml Vial) 40 mg IVPUSH BID@0630,1630 [facility] Last Admin: 10/07/21 07:50 Dose: 40 mg Documented by: Sodium Chloride (0.9 % Sodium Chloride Flush 3 Ml Syringe) 3 ml IVFLUSH QSHIFT [facility] Last Admin: 10/07/21 08:02 Dose: Not Given Documented by: Topiramate (Topiramate 100 Mg Tablet) 100 mg PO DAILY [facility] Vitamin D (Cholecalciferol (Vitamin D3) 25 Mcg Tablet) 25 mcg PO DAILY [facility] Home Medications Medication Instructions Recorded Confirmed Last Taken Type cholecalciferol (vitamin D3) 25 25 mcg PO DAILY 10/07/21 10/07/21 Unknown History mcg (1,000 unit) tablet cyanocobalamin (vitamin B-12) 1,000 mcg PO DAILY 10/07/21 10/07/21 Unknown History 1,000 mcg tablet fluoxetine 20 mg capsule 3 cap PO DAILY 10/07/21 10/07/21 Unknown History hydroxyzine HCl 50 mg tablet 1 tab PO BEDTIME PRN 10/07/21 10/07/21 Unknown History levothyroxine 75 mcg tablet 1 tab PO QAM 10/07/21 10/07/21 Unknown History (Synthroid) lorazepam 2 mg tablet 4 mg PO BID PRN 10/07/21 10/07/21 Unknown History metformin 500 mg tablet 1 tab PO BID 10/07/21 10/07/21 Unknown History oxycodone 5 mg capsule 1 - 2 cap PO TID PRN 10/07/21 10/07/21 Unknown History topiramate 100 mg tablet 100 mg PO DAILY 10/07/21 10/07/21 Unknown History Physical Exam Vital Signs: Vital Signs: Last Vital Signs Temp 98.6 F 10/07/21 04:38 Pulse 82 10/07/21 11:59 Resp 14 10/07/21 11:59 BP 124/86 10/07/21 11:59 Pulse Ox 97 10/07/21 11:59 BMI result Body Mass Index 28.1 EXAM: GENERAL: The patient is tired, irritable VITAL SIGNS:see workflow HEENT: Nonicteric sclerae, PERRLA, EOMI. Oropharynx clear. Moist mucous membranes. Conjunctivae appear well perfused. No thyroid mass. CHEST: Chest wall is nontender. HEART: Regular rate and rhythm without murmurs. LUNGS: Clear to auscultation bilaterally. ABDOMEN: Soft, positive bowel sounds, nontender, no organomegaly.no flank tenderness SKIN: No rash, no excessive bruising, petechiae, or purpura. NEUROLOGIC: Cranial nerves II-XII intact without motor/sensory deficit. MS; normal psych-clear cognition, good insight Results Labs CBC & Chem 7: 10/07/21 06:49 10/07/21 12:13 Labs: Short CBC 10/07/21 10/07/21 10/07/21 Range/Units 02:34 03:54 06:49 WBC 8.1 9.3 8.4 (4.8-10.8) X10*3/uL Hgb 14.9 14.8 13.5 (12.0-16.0) g/dl Hct 44.6 44.7 40.3 (37.0-47.0) % Plt Count 201 202 186 (160-400) X10*3/uL BMP 10/07/21 10/07/21 10/07/21 02:27 03:54 08:00 Sodium 135 134 L 137 Potassium 3.8 3.9 3.9 Chloride 109 H 109 H 114 H Carbon Dioxide 17 L 20 L 18 L BUN 19 H 19 H 14 Creatinine 0.91 0.83 0.72 Calcium 9.3 9.3 8.3 L D 10/07/21 10/07/21 08:00 12:13 Sodium 137 136 Potassium 4.2 3.9 Chloride 116 H 113 H Carbon Dioxide 18 L 17 L BUN 14 12 Creatinine 0.74 0.75 Calcium 8.2 L 8.4 Liver Function 10/07/21 10/07/21 10/07/21 Range/Units 02:27 03:54 06:49 Total Bilirubin 0.3 0.3 0.3 (0.0-1.0) mg/dL Direct Bilirubin < 0.2 (0.0-0.5) mg/dL AST 15 13 11 (5-31) U/L ALT 13 13 10 (0-31) U/L Alkaline Phosphatase 76 75 61 (39-117) U/L Albumin 3.8 3.9 3.5 (3.5-5.0) g/dL 10/07/21 10/07/21 10/07/21 Range/Units 08:00 08:00 12:13 Total Bilirubin 0.3 0.3 0.3 (0.0-1.0) mg/dL Direct Bilirubin (0.0-0.5) mg/dL AST 13 13 13 (5-31) U/L ALT 12 10 11 (0-31) U/L Alkaline Phosphatase 57 56 56 (39-117) U/L Albumin 3.6 3.5 3.5 (3.5-5.0) g/dL Assessment and Plan (1) Depression: Status: Acute (2) Diabetes: Status: Acute (3) Hypothyroidism: Status: Acute (4) Low vitamin B12 level: Status: Acute (5) Coffee ground vomiting: Status: Acute Plan 1/ Coffee ground vomiting in the presence of a substantial overdose of lithium and nyquil. She probably has a manfred wakefield tear ddx; pill gastritis or esophagitis. Vital s are stable, exam is benign PLAN: 1/ can add IV PPI, cont IV lfuids, anti emetics 2/ If HGB drops significantly and there is further emesis then can consider EGD for diangosis and treatment. Procedures Date of Service Date of Service: 10/07/21
[2021-10-07] MEDS: Prochlorperazine Edisylate 10 MG/2 ML VIAL 5 MG IVPUSH (16:54)
[2021-10-07 17:07] LABS: Lithium 0.59 mmol/L (0.60-1.20)
[2021-10-07 17:12] LABS: Alanine Aminotransferase 12 U/L (0-31); Albumin Level 3.4 g/dL (3.5-5.0); Alkaline Phosphatase 65 U/L (39-117); Anion Gap 10 (12-20); Aspartate Amino Transferase 13 U/L (5-31); Bilirubin Total 0.3 mg/dL (0.0-1.0); Blood Urea Nitrogen 9 mg/dL (9-16); Calcium 8.1 mg/dL (8.4-10.2); Carbon Dioxide 15 mmol/L (22-29); Chloride 116 mmol/L (96-108); Creatinine Clr Calc Pharmacy 84.8; Estimated Glomerular Filt Rate > 60; Glucose Random 172 mg/dL (60-115); Potassium 3.6 mmol/L (3.3-5.1); Sodium 137 mmol/L (135-145)
[2021-10-07 17:15] LABS: Acetaminophen LAB < 1 mcg/mL (<30)
[2021-10-07 17:18] LABS: Glucose, Whole Blood 109 mg/dL (60-115)
[2021-10-07 20:54] LABS: Acetaminophen LAB < 1 mcg/mL (<30); Alanine Aminotransferase 9 U/L (0-31); Albumin Level 3.1 g/dL (3.5-5.0); Alkaline Phosphatase 61 U/L (39-117); Anion Gap 8 (12-20); Aspartate Amino Transferase 9 U/L (5-31); Bilirubin Total 0.3 mg/dL (0.0-1.0); Blood Urea Nitrogen 6 mg/dL (9-16); Calcium 8.1 mg/dL (8.4-10.2); Carbon Dioxide 17 mmol/L (22-29); Chloride 118 mmol/L (96-108); Creatinine Clr Calc Pharmacy 81.3; Estimated Glomerular Filt Rate > 60; Glucose Random 164 mg/dL (60-115); Potassium 3.8 mmol/L (3.3-5.1); Sodium 139 mmol/L (135-145); Total Protein 5.5 g/dL (6.5-8.0)
[2021-10-07] MEDS: metFORMIN HCl 500 MG TABLET PO (23:05)
[2021-10-08 00:50] VITALS: BP 148/67; PULSE 81; RESP 17; O2SAT 96
--- NOTE | 2021-10-08 00:51 | PC.NURSE ---
pts bedding was wet, changed bedding. pt cooperative and apologetic. updated vitals
[2021-10-08] MEDS: Dextrose 5 % and 0.9 % NaCl 1,000 ML 200 ML IVCONT ×2 (02:03→20:55)
--- NOTE | 2021-10-08 02:39 | PC.NURSE ---
Pt resting in stretcher in nad. Pt awaiitng for room assignment. Pt alert, respirations easy, n/l. Pt awaiting for room assignment,
--- NOTE | 2021-10-08 03:18 | PC.NURSE ---
This RN speaking with Poison Control regarding pts most recent labs. No further directions advised by Poison Control @ this time.
[2021-10-08 04:05] VITALS: BP 145/70; PULSE 77; RESP 14; O2SAT 97
[2021-10-08] MEDS: Pantoprazole Sodium 40 MG/10 ML VIAL IVPUSH ×2 (06:00→20:55)
[2021-10-08] MEDS: Levothyroxine Sodium 75 MCG TABLET PO (06:00)
--- NOTE | 2021-10-08 07:57 | MHC.CARE ---
Please consult care team when Pt is medically cleared for assessment.
[2021-10-08 08:14] VITALS: BP 120/69; PULSE 76; RESP 16; O2SAT 98
[2021-10-08] MEDS: Topiramate 100 MG TABLET PO (09:09)
[2021-10-08] MEDS: Cyanocobalamin (Vitamin B-12) 1,000 MCG TABLET 1000 MCG PO (09:09)
[2021-10-08] MEDS: FLUoxetine HCl 20 MG CAPSULE 60 MG PO (09:09)
[2021-10-08] MEDS: Cholecalciferol (Vitamin D3) 25 MCG TABLET PO (09:09)
[2021-10-08] MEDS: metFORMIN HCl 500 MG TABLET PO ×2 (09:19→20:54)
[2021-10-08] MEDS: 0.9 % Sodium Chloride Flush 3 ML SYRINGE IVFLUSH (09:19)
[2021-10-08 09:46] LABS: Hematocrit 37.7 % (37.0-47.0); Hemoglobin 12.4 g/dl (12.0-16.0); Mean Corpuscular HGB Conc 32.9 g/dl (31.0-35.0); Mean Corpuscular Hemoglobin 29.6 pg (27.0-33.0); Mean Platelet Volume 9.1 fL (9.4-12.3); Platelet Count 156 X10*3/uL (160-400); Red Blood Count 4.19 X10*6/uL (4.20-5.50); White Blood Count 12.2 X10*3/uL (4.8-10.8)
[2021-10-08 10:00] LABS: Alanine Aminotransferase 10 U/L (0-31); Alkaline Phosphatase 61 U/L (39-117); Aspartate Amino Transferase 9 U/L (5-31); Bilirubin Direct < 0.2 mg/dL (0.0-0.5); Bilirubin Total 0.4 mg/dL (0.0-1.0); Total Protein 5.2 g/dL (6.5-8.0)
[2021-10-08 10:11] LABS: Acetaminophen LAB < 1 mcg/mL (<30)
--- NOTE | 2021-10-08 12:34 | MHC.CARE ---
Addendum entered by Jeri Castaneda [facility] 10/09/21 15:29: Pt is not medically cleared for admission to a psychiatric unit at this time. Authorization from [employer] will need to be obtained again when pt is ready to be admitted to a psychiatric unit. Original Note: Pt has been preaccepted for M5 admission on 10/09. Authorization number:[id number] approved by [facility] for 3 days starting on 10/09. Call Monica Plascencia on 10/11 for review [phone] [id number].
--- NOTE | 2021-10-08 12:56 | P.PNIM_ITS ---
Subjective Subjective Date of Service: 10/08/21 Interval History: f/u toxic ingestion, overdose, n/v interval history: still with SI, H/H is better Review of Systems +n, no abd pain suidical Physical Exam Vital Signs: Vital Signs: Last Vital Signs Temp 99.3 F 10/07/21 22:48 Pulse 76 10/08/21 08:14 Resp 16 10/08/21 08:14 BP 120/69 10/08/21 08:14 Pulse Ox 98 10/08/21 08:14 BMI result Body Mass Index 28.1 Const: Other: General: AO X 3, no acute distress Resp: CTA bilateral CVS: S1,S2,RRR GI: +BS, NT, no distention Skin: No rash Neuro: motor grossly intact Psych: appropriate affect Objective Data Active Medications Cyanocobalamin (Cyanocobalamin (Vitamin B-12) 1,000 Mcg Tablet) 1,000 mcg PO DAILY [facility] Last Admin: 10/08/21 09:09 Dose: 1,000 mcg Documented by: CAROL Fluoxetine HCl (Fluoxetine Hcl 20 Mg Capsule) 60 mg PO DAILY [facility] Last Admin: 10/08/21 09:09 Dose: 60 mg Documented by: CAROL Hydroxyzine HCl (Hydroxyzine Hcl 50 Mg Tablet) 50 mg PO BEDTIME PRN PRN Reason: Insomnia Dextrose/Sodium Chloride (D5ns) 1,000 mls @ 200 mls/hr IVCONT .Q5H [facility] Last Admin: 10/08/21 02:03 Dose: 200 mls/hr Documented by: MIRZA Levothyroxine Sodium (Levothyroxine Sodium 75 Mcg Tablet) 75 mcg PO DAILY@0600 [facility] Last Admin: 10/08/21 06:00 Dose: 75 mcg Documented by: BRUNO Lorazepam (Lorazepam 1 Mg Tablet) 1 mg PO BID PRN PRN Reason: Anxiety Melatonin (Melatonin 3 Mg Tablet) 6 mg PO BEDTIME PRN PRN Reason: Insomnia Metformin HCl (Metformin Hcl 500 Mg Tablet) 500 mg PO BID [facility] Last Admin: 10/08/21 09:19 Dose: 500 mg Documented by: CAROL Ondansetron HCl (Ondansetron Hcl 4 Mg/2 Ml Vial) 4 mg IVPUSH Q8H PRN PRN Reason: Nausea and Vomiting Last Admin: 10/07/21 13:05 Dose: 4 mg Documented by: YOHANA Pantoprazole Sodium (Pantoprazole Sodium 40 Mg/10 Ml Vial) 40 mg IVPUSH BID@0630,1630 [facility] Last Admin: 10/08/21 06:00 Dose: 40 mg Documented by: BRUNO Sodium Chloride (0.9 % Sodium Chloride Flush 3 Ml Syringe) 3 ml IVFLUSH QSHIFT [facility] Last Admin: 10/08/21 09:19 Dose: 3 ml Documented by: CAROL Topiramate (Topiramate 100 Mg Tablet) 100 mg PO DAILY [facility] Last Admin: 10/08/21 09:09 Dose: 100 mg Documented by: CAROL Vitamin D (Cholecalciferol (Vitamin D3) 25 Mcg Tablet) 25 mcg PO DAILY [facility] Last Admin: 10/08/21 09:09 Dose: 25 mcg Documented by: CAROL Labs CBC & Chem 7: 10/08/21 09:38 10/07/21 20:19 Labs: Laboratory Results - last 24 hr 10/07/21 10/07/21 10/07/21 01:14 16:47 16:47 MCV MCH MCHC RDW Plt Count MPV Absolute Nucleated RBC Nucleated RBC % (auto) Anion Gap 10 L Estim Creat Clear Calc 84.8 Estimated GFR > 60 POC Glucose 109 Random Glucose 172 H Calcium 8.1 L Total Bilirubin 0.3 Direct Bilirubin AST 13 ALT 12 Alkaline Phosphatase 65 Total Protein 6.0 L Albumin 3.4 L Acetaminophen < [address] 0.59 L 10/07/21 10/08/21 10/08/21 20:19 09:38 09:38 MCV 90.0 MCH 29.6 MCHC 32.9 RDW 14.0 Plt Count 156 L MPV 9.1 L Absolute Nucleated RBC 0.000 Nucleated RBC % (auto) 0.0 Anion Gap 8 L Estim Creat Clear Calc 81.3 Estimated GFR > 60 POC Glucose Random Glucose 164 H Calcium 8.1 L Total Bilirubin 0.3 0.4 Direct Bilirubin < 0.2 AST 9 9 ALT 9 10 Alkaline Phosphatase 61 61 Total Protein 5.5 L 5.2 L Albumin 3.1 L 3.0 L Acetaminophen < 1 < [address] Assessment and Plan (1) Intentional overdose: Status: Acute (2) Suicidal ideation: Status: Acute Plan 51/F with depression here with Tylenol, lithium, Benzo OD for suicide Has completed N-Acetyl Csyteine LFTS, normal, Tylenol level was never dectable, repeat INR, lithium leve N/V likely from gastritis from multiple meds, H/H stable, PPI diabetes--SSI Medically clear and cand be discharged to Psych when bed available. Inpatient: Suicidal watch until has inaptient Psych bed Quality Stroke Does the patient have a stroke diagnosis?: No VTE Prior VTE?: No VTE Risk Level:: Medical - moderate - high VTE Device Contraindication: Treatment Not Indicated VTE Drug Contraindication: N/A - Med Ordered
[2021-10-08 13:21] LABS: Lithium 0.27 mmol/L (0.60-1.20)
[2021-10-08 13:22] LABS: INTERNATIONAL NORM RATIO 1.1 (0.9-1.1); Prothrombin Time 12.9 SEC (9.9-13.0)
[2021-10-08] MEDS: ondansetron HCL 4 MG/2 ML VIAL IVPUSH (13:34)
[2021-10-08 15:53] VITALS: BP 122/57; PULSE 74; TEMP 36.8; O2SAT 100
[2021-10-08 19:28] VITALS: BP 120/66; PULSE 85; TEMP 36.6; O2SAT 98
[2021-10-09] MEDS: LORazepam 1 MG TABLET PO ×3 (02:40→21:08)
[2021-10-09] MEDS: hydrOXYzine HCL 50 MG TABLET PO (02:40)
[2021-10-09] MEDS: ondansetron HCL 4 MG/2 ML VIAL IVPUSH (03:10)
[2021-10-09] MEDS: Dextrose 5 % and 0.9 % NaCl 1,000 ML 200 ML IVCONT (03:10)
[2021-10-09] MEDS: Pantoprazole Sodium 40 MG/10 ML VIAL IVPUSH ×2 (06:30→16:59)
[2021-10-09] MEDS: Levothyroxine Sodium 75 MCG TABLET PO (06:30)
--- NOTE | 2021-10-09 09:15 | PC.NURSE ---
Pt dry heaving s/p breakfast, Dr Vigil aware.
--- NOTE | 2021-10-09 09:31 | P.PNIM_ITS ---
Subjective Subjective Date of Service: 10/10/21 Interval History: f/u toxic ingestion, overdose, n/v interval history: still with SI, she claims that she's stil sick to her stomach and throwing up everthing and abdomen is big Review of Systems +n, no abd pain suidical Physical Exam Vital Signs: Vital Signs: Last Vital Signs Temp 97.9 F 10/08/21 19:28 Pulse 85 10/08/21 19:28 Resp 16 10/08/21 08:14 BP 120/66 10/08/21 19:28 Pulse Ox 98 10/08/21 19:28 BMI result Body Mass Index 28.1 Const: Other: General: AO X 3, no acute distress Resp: CTA bilateral CVS: S1,S2,RRR GI: +BS, NT, no distention Skin: No rash Neuro: motor grossly intact Psych: appropriate affect Objective Data Active Medications Cyanocobalamin (Cyanocobalamin (Vitamin B-12) 1,000 Mcg Tablet) 1,000 mcg PO DAILY [facility] Last Admin: 10/08/21 09:09 Dose: 1,000 mcg Documented by: CAROL Fluoxetine HCl (Fluoxetine Hcl 20 Mg Capsule) 60 mg PO DAILY [facility] Last Admin: 10/08/21 09:09 Dose: 60 mg Documented by: CAROL Hydroxyzine HCl (Hydroxyzine Hcl 50 Mg Tablet) 50 mg PO BEDTIME PRN PRN Reason: Insomnia Last Admin: 10/09/21 02:40 Dose: 50 mg Documented by: EVETTE Promethazine HCl 12.5 mg/ (Sodium Chloride) 50.5 mls @ 202 mls/hr IV Q6H PRN PRN Reason: Nausea and Vomiting Levothyroxine Sodium (Levothyroxine Sodium 75 Mcg Tablet) 75 mcg PO DAILY@0600 [facility] Last Admin: 10/09/21 06:30 Dose: 75 mcg Documented by: EVETTE Lorazepam (Lorazepam 1 Mg Tablet) 1 mg PO BID PRN PRN Reason: Anxiety Last Admin: 10/09/21 02:40 Dose: 1 mg Documented by: EVETTE Melatonin (Melatonin 3 Mg Tablet) 6 mg PO BEDTIME PRN PRN Reason: Insomnia Metformin HCl (Metformin Hcl 500 Mg Tablet) 500 mg PO BID [facility] Last Admin: 10/08/21 20:54 Dose: 500 mg Documented by: EVETTE Ondansetron HCl (Ondansetron Hcl 4 Mg/2 Ml Vial) 4 mg IVPUSH Q8H PRN PRN Reason: Nausea and Vomiting Last Admin: 10/09/21 03:10 Dose: 4 mg Documented by: EVETTE Pantoprazole Sodium (Pantoprazole Sodium 40 Mg/10 Ml Vial) 40 mg IVPUSH BID@0630,1630 [facility] Last Admin: 10/09/21 06:30 Dose: 40 mg Documented by: EVETTE Sodium Chloride (0.9 % Sodium Chloride Flush 3 Ml Syringe) 3 ml IVFLUSH QSHIFT [facility] Last Admin: 10/09/21 00:06 Dose: Not Given Documented by: EVETTE Non-Admin Reason: IV Running Topiramate (Topiramate 100 Mg Tablet) 100 mg PO DAILY [facility] Last Admin: 10/08/21 09:09 Dose: 100 mg Documented by: CAROL Tramadol HCl (Tramadol Hcl 50 Mg Tablet) 50 mg PO Q6H PRN PRN Reason: Pain, Severe (Pain Scale 7-10) Vitamin D (Cholecalciferol (Vitamin D3) 25 Mcg Tablet) 25 mcg PO DAILY [facility] Last Admin: 10/08/21 09:09 Dose: 25 mcg Documented by: CAROL Labs CBC & Chem 7: 10/08/21 09:38 10/07/21 20:19 Labs: Laboratory Results - last 24 hr 10/08/21 10/08/21 10/08/21 09:38 09:38 13:10 MCV 90.0 MCH 29.6 MCHC 32.9 RDW 14.0 Plt Count 156 L MPV 9.1 L Absolute Nucleated RBC 0.000 Nucleated RBC % (auto) 0.0 PT 12.9 INR 1.1 Total Bilirubin 0.4 Direct Bilirubin < 0.2 AST 9 ALT 10 Alkaline Phosphatase 61 Total Protein 5.2 L Albumin 3.0 L Acetaminophen < 1 [place] 10/08/21 13:10 MCV MCH MCHC RDW Plt Count MPV Absolute Nucleated RBC Nucleated RBC % (auto) PT INR Total Bilirubin Direct Bilirubin AST ALT Alkaline Phosphatase Total Protein Albumin Acetaminophen [place] 0.27 L Assessment and Plan (1) Intentional overdose: Status: Acute (2) Suicidal ideation: Status: Acute Plan 51/F with depression here with Tylenol, lithium, Benzo OD for suicide Has completed N-Acetyl Csyteine LFTS, normal, Tylenol level was never dectable, repeat INR, lithium leve N/V likely from gastritis from multiple meds, H/H stable, continue IV PPI, discuss with Dr. Wise to see if EGD maybe helpful..CT of abdomen today and adding Karafate diabetes--SSI Medically clear and cand be discharged to Psych when bed available. Inpatient: Suicidal watch until has inaptient Psych bed Quality Stroke Does the patient have a stroke diagnosis?: No VTE Prior VTE?: No VTE Risk Level:: Medical - moderate - high VTE Device Contraindication: Treatment Not Indicated VTE Drug Contraindication: N/A - Med Ordered
[2021-10-09] MEDS: metFORMIN HCl 500 MG TABLET PO ×2 (09:32→21:07)
[2021-10-09] MEDS: Topiramate 100 MG TABLET PO (09:32)
[2021-10-09] MEDS: Cholecalciferol (Vitamin D3) 25 MCG TABLET PO (09:32)
[2021-10-09] MEDS: FLUoxetine HCl 20 MG CAPSULE 60 MG PO (09:32)
[2021-10-09] MEDS: Cyanocobalamin (Vitamin B-12) 1,000 MCG TABLET 1000 MCG PO (09:32)
[2021-10-09] MEDS: 0.9 % Sodium Chloride Flush 3 ML SYRINGE IVFLUSH ×2 (09:36→17:00)
--- NOTE | 2021-10-09 10:00 | PC.NURSE ---
Pt states vomited x1, feeling better. Tolerated PO meds. Given Ativan as charted per request. Left AC 18g IV removed for infiltration, 20g left wrist remains patent
[2021-10-09 10:18] VITALS: BP 121/72; PULSE 73; RESP 14; TEMP 36.8; O2SAT 96
[2021-10-09] MEDS: Sucralfate Oral Suspension 1 GM/10 ML ORAL.SUSP PO ×3 (10:33→21:07)
[2021-10-09 10:58] LABS: Alanine Aminotransferase 11 U/L (0-31); Albumin Level 3.1 g/dL (3.5-5.0); Alkaline Phosphatase 58 U/L (39-117); Aspartate Amino Transferase 10 U/L (5-31); Bilirubin Direct < 0.2 mg/dL (0.0-0.5); Bilirubin Total 0.4 mg/dL (0.0-1.0); Lipase 14 U/L (8-78); Total Protein 5.3 g/dL (6.5-8.0)
[2021-10-09 11:04] LABS: Glucose, Whole Blood 101 mg/dL (60-115)
[2021-10-09] MEDS: traMADoL HCL 50 MG TABLET PO (17:00)
--- NOTE | 2021-10-09 17:01 | PC.NURSE ---
pt a&ox3, denies SI/HI at this time. pt reports being grateful that I am alive, and regret at attempting suicide. medicated per provider order. pt reporting 7 headache, medicated with PRN medication. no new orders at this time.
[2021-10-09 18:27] VITALS: BP 130/73; PULSE 72; RESP 16; TEMP 36.6; O2SAT 98
[2021-10-09 23:44] VITALS: RESP 16
[2021-10-10 02:18] VITALS: BP 137/75; PULSE 70; RESP 16; TEMP 36.6; O2SAT 98
[2021-10-10 02:37] LABS: Appearance Urine CLEAR; Color Urine YELLOW; Glucose Urine UA NEG (NEG); Leukocyte Esterase Urine NEG (NEG); Nitrite Urine NEG (NEG); Specific Gravity - Urine 1.015 (1.005-1.025); Urine Blood NEG (NEG); Urine Ketones NEG (NEG); Urine Protein NEG (NEG-TRACE)
[2021-10-10 03:00] LABS: Amphetamine Screen Urine Not Detected (Not Detect); Barbiturates, Urine Not Detected (Not Detect); Benzodiazepines Screen Urine POSITIVE (Not Detect); Cannabinoid Screen Urine Not Detected (Not Detect); Cocaine Screen Urine Not Detected (Not Detect); Fentanyl, urine Not Detected (Not Detect); Opiate Screen Urine Not Detected (Not Detect); Phencyclidine Screen Urine Not Detected (Not Detect)
[2021-10-10] MEDS: Sucralfate Oral Suspension 1 GM/10 ML ORAL.SUSP PO ×3 (03:07→15:46)
[2021-10-10] MEDS: traMADoL HCL 50 MG TABLET PO (03:08)
[2021-10-10] MEDS: LORazepam 1 MG TABLET PO ×2 (03:08→15:46)
[2021-10-10 06:55] VITALS: RESP 17
[2021-10-10 07:21] VITALS: BP 130/68; PULSE 68; RESP 16; O2SAT 98
--- NOTE | 2021-10-10 07:24 | PC.NURSE ---
Report received from KAT Knutson. Patient resting on stretcher, reports sleeping well last night. Reports mild GI upset at this time, but improved. Patient is calm and cooperative. Respirations regular and even. Skin PWD. Patient is admitted at this time, once medically cleared plan is for SIMON bobby. Will continue to monitor.
[2021-10-10] MEDS: Levothyroxine Sodium 75 MCG TABLET PO (07:32)
[2021-10-10] MEDS: Acetaminophen 325 MG TABLET 650 MG PO (08:11)
[2021-10-10] MEDS: Topiramate 100 MG TABLET PO (10:17)
[2021-10-10] MEDS: Cholecalciferol (Vitamin D3) 25 MCG TABLET PO (10:17)
[2021-10-10] MEDS: Cyanocobalamin (Vitamin B-12) 1,000 MCG TABLET 1000 MCG PO (10:18)
[2021-10-10] MEDS: FLUoxetine HCl 20 MG CAPSULE 60 MG PO (10:18)
[2021-10-10] MEDS: metFORMIN HCl 500 MG TABLET PO (10:18)
[2021-10-10 10:25] LABS: Hematocrit 35.4 % (37.0-47.0); Hemoglobin 11.5 g/dl (12.0-16.0); Mean Corpuscular HGB Conc 32.5 g/dl (31.0-35.0); Mean Corpuscular Hemoglobin 29.4 pg (27.0-33.0); Mean Corpuscular Volume 90.5 fL (80.0-98.0); Mean Platelet Volume 9.2 fL (9.4-12.3); Platelet Count 159 X10*3/uL (160-400); Red Blood Count 3.91 X10*6/uL (4.20-5.50); Red Cell Distribution Width 13.7 % (11.0-16.0); White Blood Count 7.8 X10*3/uL (4.8-10.8)
--- NOTE | 2021-10-10 10:37 | P.DS_ITS ---
DS: Providers Provider Date of Service: 10/10/21 Date of admission: 10/07/21 04:36 Primary care physician: Unknown Physician Consults: 10/07/21 04:36 Consult to Psychiatry Routine Consulting Provider: Psych Covering Reason for consultation: SI; drug overdose 10/07/21 06:25 Consult to Nephrology Routine Consulting Provider: Floyd Rodriguez Reason for consultation: [place] over dose 60tabs; High lithium level. 10/07/21 06:33 Consult to Gastroenterology Routine Consulting Provider: Nneka Wise Reason for consultation: rimma hematemesis DS: Diagnosis Discharge Diagnosis (1) Depression: Status: Acute (2) Diabetes: Status: Acute (3) Hypothyroidism: Status: Acute (4) Low vitamin B12 level: Status: Acute (5) Coffee ground vomiting: Status: Acute DS: Summary Hospital Course Hospital Course: Chief Complaint:? drug overdose ?51-year-old female with a past medical history of anxiety, depression presented to the hospital with a chief complaint of drug overdose. patient reported that around 22:00 last night she wanted to herself, had suicidal ideation, overdosed on 4 tablets of 2 mg of Ativan, 30 tablets of NyQuil, 60 tablets of lithium-dose unknown; after that she called ambulance\ herself and came to the ER for further evaluation.? Patient reports that post ingestion she had multiple episodes of nausea and vomiting- reports most of the stuff came out of she vomited.? Denies any nausea vomiting or diarrhea.? Reports mild abdominal discomfort.? Denies any chest pain or palpitations Denies any urinary symptoms.? Review of all other systems is negative except mentioned above ER course: Per ER team patient was febrile, labs were essentially benign, liver panel within normal limits; EKG showed no acute findings; poison control was notified - suggested GoLYTELY but patient refusing likely.? Patient was also started on N-acetylcysteine protocol.? Salsalate level was less than 5, Tylenol level was 29 followed by 13; lithium level was 1.8. Section 12 placed Admitted for further management Hospital course: Patient was admitted with sucide attempt by drug overdose including lithium, ativan, Nyquil her tylenol and was having intractable nausea and vomitting. Tyelenol level was undetectable, lithium wally to 1.8.however poison control advised treatment with N-Acetyl Cysteine protocol which she completed. LFTs and INR are normal. She is still complaning of feeling suicidal, she has one to one observation and will go to inpatient. She had episodes of nausea and vomitting and reported some blood in vomitus.. Her hemoglobin is within normal rage at 12.4. GI saw her and recommed PPI and Carafate. She likely may have had a jose [place] tear from retching. She had a [facility] of [facility] on 10/09 showing Gallstones. Thick-walled stomach showing no awilda nge. No bowel obstruction. Nausea and vomitting has stopped and she is tolerating regular diet. Her lithium was 1.8 on 10/07 and the next day was 0.27. She is agreable to go to inpatient Psych treatment. To continue Metformin for diabetes, Levothyroxine for hypothryodism. She may follow up with with GI and Gen surgery on outpatient basis for gallstones which isn't a problem at this fabrizio e. Hemoglobin came down from 12 to 11 but probably dilution rather GI bleed. Time Spent with Patient Time attestation: Total time spent providing and/or coordinating discharge services: Discharge coordination time: Greater than 30 minutes Quality: Safe Use of Opioids Does Pt have an Active Cancer Diagnosis on the Problem List?: No Quality: Stroke Does the patient have a stroke diagnosis?: No Physical Exam Vital Signs: Vital Signs: Selected Entries 10/10/21 07:21 Pulse Rate 68 Respiratory Rate 16 Blood Pressure 130/68 Pulse Oximetry 98 Oxygen Delivery Me thod Room Air Const: Other: General: AO X 3, no acute distress Resp: CTA bilateral CVS: S1,S2,RRR GI: +BS, NT, no distention Skin: No rash Neuro: motor grossly intact Psych: appropriate affect DS: Data Data Completed and Pending Labs on day of discharge: Laboratory Results - last 24 hr 10/07/21 10/07/21 10/07/21 01:14 12:13 16:47 WBC RBC Hgb Hct MCV MCH MCHC RDW Plt Count MPV Absolute Nucleated RBC Nucleated RBC % (auto) Sodium 136 137 Potassium 3.9 3.6 Chloride 113 H 116 H Carbon Dioxide 17 L 15 L Anion Gap 10 L 10 L BUN 12 9 Creatinine 0.75 0.71 Estim Creat Clear Calc 80.3 84.8 Estimated GFR > 60 > 60 POC Glucose 109 Random Glucose 153 H 172 H Calcium 8.4 8.1 L Total Bilirubin 0.3 0.3 Direct Bilirubin AST 13 13 ALT 11 12 Alkaline Phosphatase 56 65 Total Protein 6.2 L 6.0 L Albumin 3.5 3.4 L Acetaminophen < 1 < 1 [place] 10/07/21 10/07/21 10/08/21 16:47 20:19 09:38 WBC 12.2 H RBC 4.19 L Hgb 12.4 Hct 37.7 MCV 90.0 MCH 29.6 MCHC 32.9 RDW 14.0 Plt Count 156 L MPV 9.1 L Absolute Nucleated RBC 0.000 Nucleated RBC % (auto) 0.0 Sodium 139 Potassium 3.8 Chloride 118 H Carbon Dioxide 17 L Anion Gap 8 L BUN 6 L Creatinine 0.74 Estim Creat Clear Calc 81.3 Estimated GFR > 60 POC Glucose Random Glucose 164 H Calcium 8.1 L Total Bilirubin 0.3 Direct Bilirubin AST 9 ALT 9 Alkaline Phosphatase 61 Total Protein 5.5 L Albumin 3.1 L Acetaminophen < 1 [place] 0.59 L 10/08/21 09:38 WBC RBC Hgb Hct MCV MCH MCHC RDW Plt Count MPV Absolute Nucleated RBC Nucleated RBC % (auto) Sodium Potassium Chloride Carbon Dioxide Anion Gap BUN Creatinine Estim Creat Clear Calc Estimated GFR POC Glucose Random Glucose Calcium Total Bilirubin 0.4 Direct Bilirubin < 0.2 AST 9 ALT 10 Alkaline Phosphatase 61 Total Protein 5.2 L Albumin 3.0 L Acetaminophen < 1 [place] Discharge Plan Discharge Anticipated Discharge Date/Time: 10/10/21 10:06 Patient Disposition: Xfer Psychiatric Hosp Discharge Diagnosis: Depression with suicide attempt, Gastritis Referrals: Physician,Unknown J [Primary Care Provider] - 1 Week Discharge Medications: Continued metformin 500 mg tablet 1 tab PO BID 0RF hydroxyzine HCl 50 mg tablet 1 tab PO BEDTIME PRN (Reason: Insomnia) 0RF levothyroxine [Synthroid] 75 mcg tablet 1 tab PO QAM 0RF lorazepam 2 mg tablet 4 mg PO BID PRN (Reason: Anxiety) 0RF oxycodone 5 mg capsule 1 - 2 cap PO TID PRN (Reason: pain) 0RF topiramate 100 mg tablet 100 mg PO DAILY 0RF fluoxetine 20 mg capsule 3 cap PO DAILY 0RF cyanocobalamin (vitamin B-12) 1,000 mcg Tablet 1,000 mcg PO DAILY 0RF cholecalciferol (vitamin D3) 25 mcg (1,000 unit) Tablet 25 mcg PO DAILY 0RF Discharge Orders: Discharge Order (Routine); Ordered 10/10/21 Ordered By: Parish Vigil Diet: advance to usual diet and diabetic diet Activity on Discharge: As tolerated Stand Alone Forms: Patient Portal Discharge page Care Plan Goals: Suicide prevention Health Concerns: Depression and sucide thought Plan of Treatment: To inpatient
--- NOTE | 2021-10-10 11:37 | MHC.CM.PN ---
Received notification that patient will be transferred to [facility] [place] today.
--- NOTE | 2021-10-10 11:58 | PC.NURSE ---
Patient continues to rest on stretcher. Patient ate a bit of toast and did well, did not vomit. Reports comfort. Respirations regular and even. Skin PWD. Patient to be admitted to today. Patient agreeable to plan. Will continue to monitor.
[2021-10-10 12:00] VITALS: BP 121/65; PULSE 67; RESP 16; O2SAT 98
[2021-10-10 12:19] LABS: COVID-19 Test Negative (Negative)
[2021-10-10] MEDS: Ondansetron ODT 4 MG TAB.RAPDIS TRANSLINGU (15:46)
== END 2021-10-10 22:02 | DRG 918 ==
LOC: HO.ED 04:21 → HO.EDOVER 04:43 → HO.PM5 10-10 17:57
PROVIDERS: Internal Medicine; Physician Assistant; Admitting Provider Hospitalist; Emergency Provider Student in an Organized Health Care Education/Training Program; Visit Provider Internal Medicine
DX: T43.592A Poisoning by other antipsychotics and neuroleptics, intentional self-harm, initial encounter (principal); T42.4X2A Poisoning by benzodiazepines, intentional self-harm, initial encounter; F43.10 Post-traumatic stress disorder, unspecified; E03.9 Hypothyroidism, unspecified; E11.9 Type 2 diabetes mellitus without complications; F17.210 Nicotine dependence, cigarettes, uncomplicated; Z71.6 Tobacco abuse counseling; Z20.822 Contact with and (suspected) exposure to COVID-19; Z88.8 Allergy status to other drugs, medicaments and biological substances; Z79.84 Long term (current) use of oral hypoglycemic drugs; Z79.890 Hormone replacement therapy; Z79.899 Other long term (current) drug therapy
CPT/HCPCS: 36415; 71045; 74176; 80053; 80076; 80143; 80178; 80179; 80307; 81003; 82077; 82947; 83690; 83735; 85025; 85027; 85610; 86850; 86900; 86901; 87502; 87635; 93005; 96361; 96365; 96375; 99285; 99291; J0132; J2405

== ENCOUNTER 2021-10-10 21:56 | Inpatient (IN) | payer MEDICARE, OTHER, SELFPAY ==
[2021-10-10 19:15] VITALS: BP 127/73; PULSE 65; TEMP 36.3
[2021-10-10] MEDS: LORazepam 1 MG TABLET 2 MG PO (23:44)
[2021-10-10] MEDS: Melatonin 3 MG TABLET 6 MG PO (23:45)
[2021-10-10] MEDS: metFORMIN HCl 500 MG TABLET PO (23:45)
[2021-10-10] MEDS: Sucralfate Oral Suspension 1 GM/10 ML ORAL.SUSP PO (23:46)
[2021-10-10] MEDS: Ondansetron ODT 4 MG TAB.RAPDIS TRANSLINGU (23:49)
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
[2021-10-11 02:18] VITALS: BMI 29.7
[2021-10-11 06:00] VITALS: PULSE 78; TEMP 36.8
[2021-10-11 09:07] LABS: Alanine Aminotransferase 21 U/L (0-31); Albumin Level 3.5 g/dL (3.5-5.0); Alkaline Phosphatase 72 U/L (39-117); Anion Gap 12 (12-20); Aspartate Amino Transferase 18 U/L (5-31); Bilirubin Total 0.3 mg/dL (0.0-1.0); Blood Urea Nitrogen 8 mg/dL (9-16); Carbon Dioxide 22 mmol/L (22-29); Chloride 110 mmol/L (96-108); Cholesterol 164 mg/dL; Creatinine Clr Calc Pharmacy 83.6; Estimated Glomerular Filt Rate > 60; Glucose Fasting 96 mg/dL (60-99); HDL Cholesterol 32 mg/dL; LDL Cholesterol Calculated 82 mg/dl; Potassium 3.9 mmol/L (3.3-5.1); Sodium 140 mmol/L (135-145); Total Protein 6.1 g/dL (6.5-8.0); Triglycerides 254 mg/dL
[2021-10-11] MEDS: metFORMIN HCl 500 MG TABLET PO ×2 (09:38→16:13)
[2021-10-11] MEDS: Omeprazole 40 MG CAPSULE.DR PO ×2 (09:38→16:13)
[2021-10-11] MEDS: Sucralfate Oral Suspension 1 GM/10 ML ORAL.SUSP PO ×4 (09:38→22:04)
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
[2021-10-11 11:01] LABS: Alanine Aminotransferase 19 U/L (0-31); Albumin Level 3.5 g/dL (3.5-5.0); Alkaline Phosphatase 70 U/L (39-117); Anion Gap 13 (12-20); Aspartate Amino Transferase 21 U/L (5-31); Bilirubin Total 0.4 mg/dL (0.0-1.0); Blood Urea Nitrogen 9 mg/dL (9-16); Calcium 8.8 mg/dL (8.4-10.2); Carbon Dioxide 21 mmol/L (22-29); Chloride 110 mmol/L (96-108); Cholesterol 158 mg/dL; Creatinine Clr Calc Pharmacy 83.6; Estimated Glomerular Filt Rate > 60; Glucose Fasting 114 mg/dL (60-99); HDL Cholesterol 33 mg/dL; LDL Cholesterol Calculated 89 mg/dl; Potassium 4.1 mmol/L (3.3-5.1); Sodium 140 mmol/L (135-145); Total Protein 6.1 g/dL (6.5-8.0); Triglycerides 181 mg/dL
[2021-10-11] MEDS: LORazepam 1 MG TABLET PO ×2 (12:45→22:04)
[2021-10-11 18:00] VITALS: BP 130/80; PULSE 71; RESP 18; TEMP 36.3
--- NOTE | 2021-10-11 18:13 | PM.GIPN ---
Subjective Subjective Date of Service: 10/11/21 Interval History: Doing better with carafarte x 1 bilious vomiting episode yesterday, 'no melena no abdominal pain, appetite slowly improving Critical Care Time (minutes): 0 Physical Exam Vital Signs: Vital Signs: Last Vital Signs Temp 98.2 F 10/11/21 06:00 Pulse 78 10/11/21 06:00 BP 127/73 10/10/21 19:15 BMI result Body Mass Index 29.7 EXAM: GENERAL: The patient is well developed and nontoxic. VITAL SIGNS:see workflow HEENT: Nonicteric sclerae, PERRLA, EOMI. Oropharynx clear. Moist mucous membranes. Conjunctivae appear well perfused. No thyroid mass. CHEST: Chest wall is nontender. HEART: Regular rate and rhythm without murmurs. LUNGS: Clear to auscultation bilaterally. ABDOMEN: Soft, positive bowel sounds, nontender, no organomegaly.no flank tenderness SKIN: No rash, no excessive bruising, petechiae, or purpura. NEUROLOGIC: Cranial nerves II-XII intact without motor/sensory deficit. psych- improved affect Objective Data Labs CBC & Chem 7: 10/11/21 10:23 Labs: Laboratory Results - last 24 hr 10/11/21 10/11/21 08:06 10:23 Sodium 140 140 Potassium 3.9 4.1 Chloride 110 H 110 H Carbon Dioxide 22 21 L Anion Gap 12 13 BUN 8 L 9 Creatinine 0.77 0.77 Estim Creat Clear Calc 83.6 83.6 Estimated GFR > 60 > 60 Fasting Glucose 96 114 H Calcium 9.0 D 8.8 Total Bilirubin 0.3 0.4 AST 18 D 21 ALT 21 19 Alkaline Phosphatase 72 D 70 Total Protein 6.1 L 6.1 L Albumin 3.5 3.5 Triglycerides 254 181 Cholesterol 164 158 LDL Cholesterol, Calc 82 89 HDL Cholesterol 32 33 Procedures Date of Service Date of Service: 10/11/21 Progress Note: A&P Assessment and plan (1) Gastritis: Status: Acute Plan 1/ Ct scan with thickened gastric lining consistent with gastritis, improving with carafate PLAN: 1/ Cont with PPi e.g pantoprazole 40 mg daily is ok 2/ cont with carafate 1 g BID for 2 weeks 3/ If worsening sx can consider EGD for further assessment, avoid nsaids Time Spent With Patient Time: Total time spent is greater than 50% in coordination of care (as documented) at patient's floor/unit and/or counseling patient: Quality Stroke Does the patient have a stroke diagnosis?: No VTE Prior VTE?: No VTE Risk Level:: Medical - moderate - high VTE Device Contraindication: Treatment Not Indicated VTE Drug Contraindication: N/A - Med Ordered
[2021-10-11] MEDS: traZODone HCL 25 MG HALFTAB 12.5 MG PO (22:04)
[2021-10-11] MEDS: Ondansetron ODT 4 MG TAB.RAPDIS TRANSLINGU (22:07)
[2021-10-11] MEDS: hydrOXYzine HCL 25 MG TABLET PO (22:34)
[2021-10-11] MEDS: Melatonin 3 MG TABLET 6 MG PO (23:46)
[2021-10-12] MEDS: Omeprazole 40 MG CAPSULE.DR PO ×2 (06:48→17:04)
[2021-10-12] MEDS: Levothyroxine Sodium 75 MCG TABLET PO (06:48)
[2021-10-12] MEDS: metFORMIN HCl 500 MG TABLET PO ×2 (09:08→17:57)
[2021-10-12] MEDS: Sucralfate Oral Suspension 1 GM/10 ML ORAL.SUSP PO ×4 (09:08→21:28)
[2021-10-12] MEDS: Topiramate 100 MG TABLET PO (09:09)
[2021-10-12] MEDS: buPROPion HCl XL 150 MG TAB.ER.24H PO (09:09)
[2021-10-12 09:11] VITALS: BP 135/70; PULSE 62; RESP 18; TEMP 36.8; O2SAT 98
[2021-10-12] MEDS: Cyanocobalamin (Vitamin B-12) 1,000 MCG TABLET 1000 MCG PO (10:40)
[2021-10-12] MEDS: Cholecalciferol (Vitamin D3) 25 MCG TABLET PO (10:40)
[2021-10-12] MEDS: FLUoxetine HCl 20 MG CAPSULE 60 MG PO (10:40)
--- NOTE | 2021-10-12 10:50 | HO.PSYCHPN ---
Subjective Subjective Date of Service: 10/12/21 Reason For Visit: SI Interim History: Patient remains depressed but is more hopeful. She was unable to uncover some of the origins of self-deprecating thoughts when shared some history of hurt full interactions she had with her mother as a young girl. Patient met with Dr. Mei discussed ECT/TMS and is interested in starting a trial of ECT. Patient denies any side effects from Wellbutrin and agrees to continue Patient complains of ongoing nausea and was up early this morning vomiting. No vomit today and she denies that there was any blood in emesis. Patient says it is hard to eat or drink since it seems to upset her stomach and she has been taking Zofran Mental Status Exam Mental Status Exam Narrative: Pt is alert and oriented; behavior is cooperative; at times tearful and emotionally distraught; dressed in casual attire with brushed hair but adequate hygiene; mood is described as depressed and affect congruent; eye contact appropriate; Speech is normal rate, volume and prosody and not pressured; no psychomotor agitation/retardation present; thought process is organized and goal directed; Thought content is ambivalence of being alive; also on treatment; otherwise pertinent to relevant topics and without any delusional content, paranoid ideations or grandiosity; currently denies any SI; no HI. There is no evidence of perceptual disturbance. ?Patients insight and judgment are impaired. Diagnostics Vital Signs (24Hr): Vital Signs - 24 hr 10/11/21 18:00 10/12/21 09:11 Temperature 97.3 F 98.2 F Pulse Rate 71 62 Respiratory Rate 18 18 Blood Pressure 130/80 135/70 Pulse Oximetry 98 BMI result Body Mass Index 29.7 Labs Results: 10/11/21 10:23 Labs: Laboratory Results - last 48 hr 10/11/21 10/11/21 08:06 10:23 Sodium 140 140 Potassium 3.9 4.1 Chloride 110 H 110 H Carbon Dioxide 22 21 L Anion Gap 12 13 BUN 8 L 9 Creatinine 0.77 0.77 Estim Creat Clear Calc 83.6 83.6 Estimated GFR > 60 > 60 Fasting Glucose 96 114 H Calcium 9.0 D 8.8 Total Bilirubin 0.3 0.4 AST 18 D 21 ALT 21 19 Alkaline Phosphatase 72 D 70 Total Protein 6.1 L 6.1 L Albumin 3.5 3.5 Triglycerides 254 181 Cholesterol 164 158 LDL Cholesterol, Calc 82 89 HDL Cholesterol 32 33 Medications Medications Current Medications Acetaminophen (Acetaminophen 325 Mg Tablet) 650 mg PO Q6H PRN PRN Reason: Headache/Pain Mild Scale (1-3) Al Hydroxide/Mg Hydroxide (Magnesium Hydrox/Alum Hydrox 30 Ml Oral.Susp) 30 ml PO Q6H PRN PRN Reason: Heartburn/Nausea Bupropion HCl (Bupropion Hcl Xl 150 Mg Tab.Er.24h) 150 mg PO DAILY [facility] Last Admin: 10/12/21 09:09 Dose: 150 mg Documented by: Cyanocobalamin (Cyanocobalamin (Vitamin B-12) 1,000 Mcg Tablet) 1,000 mcg PO DAILY [facility] Last Admin: 10/12/21 10:40 Dose: 1,000 mcg Documented by: Fluoxetine HCl (Fluoxetine Hcl 20 Mg Capsule) 60 mg PO DAILY [facility] Last Admin: 10/12/21 10:40 Dose: 60 mg Documented by: Hydroxyzine HCl (Hydroxyzine Hcl 50 Mg Tablet) 50 mg PO BEDTIME PRN PRN Reason: Insomnia Hydroxyzine HCl (Hydroxyzine Hcl 25 Mg Tablet) 25 mg PO Q6H PRN PRN Reason: Anxiety Last Admin: 10/11/21 22:34 Dose: 25 mg Documented by: Levothyroxine Sodium (Levothyroxine Sodium 75 Mcg Tablet) 75 mcg PO DAILY@0600 [facility] Last Admin: 10/12/21 06:48 Dose: 75 mcg Documented by: Lorazepam (Lorazepam 1 Mg Tablet) 1 mg PO BID PRN PRN Reason: Anxiety Last Admin: 10/11/21 22:04 Dose: 1 mg Documented by: Magnesium Hydroxide (Milk Of Magnesia 30 Ml Oral.Susp) 30 ml PO DAILY PRN PRN Reason: Constipation Melatonin (Melatonin 3 Mg Tablet) 6 mg PO BEDTIME PRN PRN Reason: Insomnia Last Admin: 10/11/21 23:46 Dose: 6 mg Documented by: Metformin HCl (Metformin Hcl 500 Mg Tablet) 500 mg PO BIDWM [facility] Last Admin: 10/12/21 09:08 Dose: 500 mg Documented by: Omeprazole (Omeprazole 40 Mg Capsule.) 40 mg PO BID@0630,1630 [facility] Last Admin: 10/12/21 06:48 Dose: 40 mg Documented by: Ondansetron HCl (Ondansetron Odt 4 Mg Tab.Rapdis) 4 mg TRANSLINGU Q8H PRN PRN Reason: Nausea and Vomiting Last Admin: 10/11/21 22:07 Dose: 4 mg Documented by: Sucralfate (Sucralfate Oral Suspension 1 Gm/10 Ml Oral.Susp) 1 gm PO QIDACHS [facility] Last Admin: 10/12/21 09:08 Dose: 1 gm Documented by: Topiramate (Topiramate 100 Mg Tablet) 100 mg PO DAILY [facility] Last Admin: 10/12/21 09:09 Dose: 100 mg Documented by: Trazodone HCl (Trazodone Hcl 25 Mg Halftab) 12.5 mg PO BEDTIME [facility] Last Admin: 10/11/21 22:04 Dose: 12.5 mg Documented by: Vitamin D (Cholecalciferol (Vitamin D3) 25 Mcg Tablet) 25 mcg PO DAILY [facility] Last Admin: 10/12/21 10:40 Dose: 25 mcg Documented by: Allergies Allergies Allergy/AdvReac Type Severity Reaction Status Date / Time gabapentin Allergy Unknown Verified 11/27/20 13:51 Assessment & Plan Assessment & Plan (1) Chronic post-traumatic stress disorder (PTSD): Status: Acute Code(s): F43.12 - Post-traumatic stress disorder, chronic (2) Major depressive disorder, recurrent severe without psychotic features: Status: Acute Code(s): F33.2 - Major depressive disorder, recurrent severe without psychotic features (3) Hypothyroidism: Status: Acute Code(s): E03.9 - Hypothyroidism, unspecified (4) Gastritis: Status: Acute Code(s): K29.70 - Gastritis, unspecified, without bleeding Plan Patient is a 51-year-old female with history of refractory depression, PTSD and body dysmorphia, who presents for worsening depression and suicide attempt by overdose in the face of having missed ketamine dose and increasing psychosocial stressors. Formulation: Long history of refractory depression with many medication trials.? No history of ECT or T MS; no history of Wellbutrin.? Also only remote history of therapy.? Patient's history of emotional trauma seems to be a very significant contribution to her chronic depression of which therapy will likely be an essential component to treatment -patient willing to try Wellbutrin at this time -met with Dr. Mei and patient is Considering ECT for organic component to depression Plan: CV Q15min 1. Depression: START Wellbutrin XL 150mg daily; will titrate Considering ECT cholecalciferol (vitamin D3) 25 mcg PO DAILY cyanocobalamin (vitamin B-12) 1000 mcg PO DAILY fluoxetine 20 mg capsule DAILY hydroxyzine HCl 50 mg tabletBEDTIME PRN levothyroxine 75 mcg tablet QAM lorazepam 2 mg tablet BID PRN metformin 500 mg tablet BID topiramate 100 mg tablet daily 2. Gastritis: Ct scan with thickened gastric lining consistent with gastritis, improving with carafate Dr. Don: 1/ Cont with PPi e.g pantoprazole 40 mg daily is ok 2/ cont with carafate 1 g BID for 2 weeks 3/ If worsening sx can consider EGD for further assessment, avoid nsaids I spent minutes with the patient and/or on the patient floor today, greater than?50% of which was spent counseling/coordinating care. Patient educated on: diagnosis and ECT Informed Consent: understands Reason for contiued inpatient stay Substantial Risk for: rapid decompensation
[2021-10-12] MEDS: Ondansetron ODT 4 MG TAB.RAPDIS TRANSLINGU ×2 (14:12→21:20)
[2021-10-12 17:50] LABS: UPreg QC Valid YES; Urine Pregnancy NEGATIVE (NEGATIVE)
[2021-10-12 18:00] VITALS: BP 132/69; PULSE 69; RESP 18; TEMP 36.4
[2021-10-12] MEDS: LORazepam 1 MG TABLET PO ×2 (19:11→23:13)
[2021-10-12] MEDS: traZODone HCL 25 MG HALFTAB 12.5 MG PO (21:28)
[2021-10-13] MEDS: hydrOXYzine HCL 50 MG TABLET PO ×2 (01:00→21:33)
[2021-10-13] MEDS: Levothyroxine Sodium 75 MCG TABLET PO (06:44)
[2021-10-13] MEDS: Omeprazole 40 MG CAPSULE.DR PO ×2 (06:44→16:35)
[2021-10-13 06:56] VITALS: BP 130/67; PULSE 75; RESP 18; TEMP 36.8; O2SAT 95
[2021-10-13] MEDS: FLUoxetine HCl 20 MG CAPSULE 60 MG PO (09:13)
[2021-10-13] MEDS: metFORMIN HCl 500 MG TABLET PO ×2 (09:13→16:35)
[2021-10-13] MEDS: Sucralfate Oral Suspension 1 GM/10 ML ORAL.SUSP PO ×4 (09:13→21:00)
[2021-10-13] MEDS: Cyanocobalamin (Vitamin B-12) 1,000 MCG TABLET 1000 MCG PO (10:07)
[2021-10-13] MEDS: Cholecalciferol (Vitamin D3) 25 MCG TABLET PO (10:07)
[2021-10-13] MEDS: Topiramate 100 MG TABLET PO (10:07)
[2021-10-13] MEDS: Ondansetron ODT 4 MG TAB.RAPDIS TRANSLINGU (10:07)
--- NOTE | 2021-10-13 12:00 | PM.EVENT ---
Event Note Date of Service: 10/13/21 Event Note: Patient recently treated on medical floor for poly med overdose for SI. She has no known CAD, ECG 10/07 normal. Has no sings of HF/or CAD.. At this point there is no indication for cardiopulmonary testing before ECT
[2021-10-13] MEDS: buPROPion HCL 100 MG TABLET PO (12:33)
--- NOTE | 2021-10-13 16:41 | HO.PSYCHPN ---
Subjective Subjective Date of Service: 10/13/21 Reason For Visit: SI Interim History: Reports that she had great difficulty with sleep and believes it is related to Wellbutrin XL. She requests to to try immediate release to see if this issue resolved. Team reports pt is taking 1-2 meds per hour to avoid the intermittent nausea she experiences. She wanted to comment that she is pleased with her treatment and plan of care thus far. Presents positive and engaged in milieu. Medication Compliance: Yes Side effects from medications: Yes (as noted in HPI) Attending Groups: Intermittent Review of Systems Acute medical concerns: No Medical Review of Systems: unchanged Mental Status Exam Mental Status Exam Patient Appearance: Appropriate Patient Orientation: Person, Place, Time and Situation Level of Consciousness: Alert Patient Behavior: Appropriate, Talkative, Cooperative and Good Eye Contact Mood Description: Anxious and Apprehensive Affect Description: Apprehensive Patient Cognition Impaired: No Ability to Follow Directions: Good Speech Pattern: Spontaneous Speech Memory Description: Intact Hallucinations: None Delusions: Not Present Thought Process: Intact and Distracted (at times) Thought Content: positive for Intact Depressive Symptoms: Increased Anxiety Judgement: Fair Diagnostics Vital Signs (24Hr): Vital Signs - 24 hr 10/12/21 18:00 10/13/21 06:56 Temperature 97.6 F 98.3 F Pulse Rate 69 75 Respiratory Rate 18 18 Blood Pressure 132/69 130/67 Pulse Oximetry 95 BMI result Body Mass Index 29.7 Labs Results: 10/11/21 10:23 Labs: Laboratory Results - last 48 hr 10/12/21 17:33 Urine Test NEGATIVE Medications Medications Current Medications Acetaminophen (Acetaminophen 325 Mg Tablet) 650 mg PO Q6H PRN PRN Reason: Headache/Pain Mild Scale (1-3) Al Hydroxide/Mg Hydroxide (Magnesium Hydrox/Alum Hydrox 30 Ml Oral.Susp) 30 ml PO Q6H PRN PRN Reason: Heartburn/Nausea Bupropion HCl (Bupropion Hcl Xl 150 Mg Tab.Er.24h) 150 mg PO DAILY [facility] Last Admin: 10/13/21 10:08 Dose: Not Given Documented by: Bupropion HCl (Bupropion Hcl 100 Mg Tablet) 100 mg PO DAILY [facility] Last Admin: 10/13/21 12:33 Dose: 100 mg Documented by: Cyanocobalamin (Cyanocobalamin (Vitamin B-12) 1,000 Mcg Tablet) 1,000 mcg PO DAILY [facility] Last Admin: 10/13/21 10:07 Dose: 1,000 mcg Documented by: Fluoxetine HCl (Fluoxetine Hcl 20 Mg Capsule) 60 mg PO DAILY [facility] Last Admin: 10/13/21 09:13 Dose: 60 mg Documented by: Hydroxyzine HCl (Hydroxyzine Hcl 50 Mg Tablet) 50 mg PO BEDTIME PRN PRN Reason: Insomnia Last Admin: 10/13/21 01:00 Dose: 50 mg Documented by: Hydroxyzine HCl (Hydroxyzine Hcl 25 Mg Tablet) 25 mg PO Q6H PRN PRN Reason: Anxiety Last Admin: 10/11/21 22:34 Dose: 25 mg Documented by: Levothyroxine Sodium (Levothyroxine Sodium 75 Mcg Tablet) 75 mcg PO DAILY@0600 [facility] Last Admin: 10/13/21 06:44 Dose: 75 mcg Documented by: Lorazepam (Lorazepam 1 Mg Tablet) 1 mg PO BID PRN PRN Reason: Anxiety Last Admin: 10/12/21 23:13 Dose: 1 mg Documented by: Magnesium Hydroxide (Milk Of Magnesia 30 Ml Oral.Susp) 30 ml PO DAILY PRN PRN Reason: Constipation Melatonin (Melatonin 3 Mg Tablet) 6 mg PO BEDTIME PRN PRN Reason: Insomnia Last Admin: 10/11/21 23:46 Dose: 6 mg Documented by: Metformin HCl (Metformin Hcl 500 Mg Tablet) 500 mg PO BIDWM [facility] Last Admin: 10/13/21 16:35 Dose: 500 mg Documented by: Omeprazole (Omeprazole 40 Mg Capsule.Dr) 40 mg PO BID@0630,1630 [facility] Last Admin: 10/13/21 16:35 Dose: 40 mg Documented by: Ondansetron HCl (Ondansetron Odt 4 Mg Tab.Rapdis) 4 mg TRANSLINGU Q8H PRN PRN Reason: Nausea and Vomiting Last Admin: 10/13/21 10:07 Dose: 4 mg Documented by: Sucralfate (Sucralfate Oral Suspension 1 Gm/10 Ml Oral.Susp) 1 gm PO QIDACHS [facility] Last Admin: 10/13/21 16:35 Dose: 1 gm Documented by: Topiramate (Topiramate 100 Mg Tablet) 100 mg PO DAILY [facility] Last Admin: 10/13/21 10:07 Dose: 100 mg Documented by: Trazodone HCl (Trazodone Hcl 25 Mg Halftab) 12.5 mg PO BEDTIME [facility] Last Admin: 10/12/21 21:28 Dose: 12.5 mg Documented by: Vitamin D (Cholecalciferol (Vitamin D3) 25 Mcg Tablet) 25 mcg PO DAILY [facility] Last Admin: 10/13/21 10:07 Dose: 25 mcg Documented by: Allergies Allergies Allergy/AdvReac Type Severity Reaction Status Date / Time gabapentin Allergy Unknown Verified 11/27/20 13:51 Assessment & Plan Assessment & Plan (1) Chronic post-traumatic stress disorder (PTSD): Status: Acute Code(s): F43.12 - Post-traumatic stress disorder, chronic (2) Major depressive disorder, recurrent severe without psychotic features: Status: Acute Code(s): F33.2 - Major depressive disorder, recurrent severe without psychotic features (3) Hypothyroidism: Status: Acute Code(s): E03.9 - Hypothyroidism, unspecified (4) Gastritis: Status: Acute Code(s): K29.70 - Gastritis, unspecified, without bleeding Plan Patient is a 51-year-old female with history of refractory depression, PTSD and body dysmorphia, who presents for worsening depression and suicide attempt by overdose in the face of having missed ketamine dose and increasing psychosocial stressors. Formulation: Long history of refractory depression with many medication trials.? No history of ECT or T MS; no history of Wellbutrin.? Also only remote history of therapy.? Patient's history of emotional trauma seems to be a very significant contribution to her chronic depression of which therapy will likely be an essential component to treatment -patient willing to try Wellbutrin at this time -met with Dr. Mei and patient is Considering ECT for organic component to depression Plan: CV Q15min 1. Depression: START Wellbutrin XL 150mg daily; will titrate Considering ECT cholecalciferol (vitamin D3) 25 mcg PO DAILY cyanocobalamin (vitamin B-12) 1000 mcg PO DAILY fluoxetine 20 mg capsule DAILY hydroxyzine HCl 50 mg tabletBEDTIME PRN levothyroxine 75 mcg tablet QAM lorazepam 2 mg tablet BID PRN metformin 500 mg tablet BID topiramate 100 mg tablet daily 2. Gastritis: Ct scan with thickened gastric lining consistent with gastritis, improving with carafate Dr. Early?Wise: 1/ Cont with PPi e.g pantoprazole 40 mg daily is ok 2/ cont with carafate 1 g BID for 2 weeks 3/ If worsening sx can consider EGD for further assessment, avoid nsaids 10/13/21: DC Wellbutrin XL Wellbutrin 100 mg a.m. I spent minutes with the patient and/or on the patient floor today, greater than?50% of which was spent counseling/coordinating care. Patient educated on: medication risk/benefits and therapeutic strategies Informed Consent: further education needed Reason for contiued inpatient stay Substantial Risk for: inability to function and rapid decompensation
[2021-10-13 17:38] VITALS: BP 123/60; PULSE 66; RESP 18; TEMP 36.6
[2021-10-13] MEDS: traZODone HCL 25 MG HALFTAB 12.5 MG PO (20:59)
[2021-10-13] MEDS: LORazepam 1 MG TABLET PO (21:00)
[2021-10-13] MEDS: Melatonin 3 MG TABLET 6 MG PO (21:33)
[2021-10-14] MEDS: Omeprazole 40 MG CAPSULE.DR PO ×2 (06:19→16:14)
[2021-10-14] MEDS: Levothyroxine Sodium 75 MCG TABLET PO (06:19)
[2021-10-14 06:46] VITALS: BP 106/55; PULSE 63; RESP 16; TEMP 36.4; O2SAT 96
[2021-10-14] MEDS: metFORMIN HCl 500 MG TABLET PO ×2 (08:06→16:14)
[2021-10-14] MEDS: Sucralfate Oral Suspension 1 GM/10 ML ORAL.SUSP PO ×3 (08:06→16:14)
[2021-10-14] MEDS: FLUoxetine HCl 20 MG CAPSULE 60 MG PO (09:46)
--- NOTE | 2021-10-14 10:43 | P.PNPSI_ITS ---
Subjective Subjective Date of Service: 10/14/21 Reason For Visit: SI Subjective Notes: Conditional Voluntary Interim History: Pleased with Wellbutrin change from XL to standard. Reports improved and increased sleep. Denies other questions/concerns today. Medication Compliance: Yes Side effects from medications: No Attending Groups: Intermittent Review of Systems Acute medical concerns: No Medical Review of Systems: unchanged Mental Status Exam Mental Status Exam Patient Appearance: Appropriate Patient Orientation: Person, Place, Time and Situation Level of Consciousness: Alert Patient Behavior: Appropriate, Talkative, Cooperative and Good Eye Contact Mood Description: Anxious and Apprehensive Affect Description: Apprehensive Patient Cognition Impaired: No Ability to Follow Directions: Good Speech Pattern: Spontaneous Speech Memory Description: Intact Hallucinations: None Delusions: Not Present Thought Process: Intact and Distracted (at times) Thought Content: positive for Intact Depressive Symptoms: Increased Anxiety Judgement: Fair Diagnostics Vital Signs (24Hr): Vital Signs - 24 hr 10/13/21 17:38 10/14/21 06:46 Temperature 97.8 F 97.5 F Pulse Rate 66 63 Respiratory Rate 18 16 Blood Pressure 123/60 106/55 L Pulse Oximetry 96 BMI result Body Mass Index 29.7 Labs Results: 10/11/21 10:23 Labs: Laboratory Results - last 48 hr 10/12/21 17:33 Urine Test NEGATIVE Medications Medications Current Medications Acetaminophen (Acetaminophen 325 Mg Tablet) 650 mg PO Q6H PRN PRN Reason: Headache/Pain Mild Scale (1-3) Al Hydroxide/Mg Hydroxide (Magnesium Hydrox/Alum Hydrox 30 Ml Oral.Susp) 30 ml PO Q6H PRN PRN Reason: Heartburn/Nausea Bupropion HCl (Bupropion Hcl 100 Mg Tablet) 100 mg PO DAILY [facility] Last Admin: 10/13/21 12:33 Dose: 100 mg Documented by: Cyanocobalamin (Cyanocobalamin (Vitamin B-12) 1,000 Mcg Tablet) 1,000 mcg PO DAILY [facility] Last Admin: 10/13/21 10:07 Dose: 1,000 mcg Documented by: Fluoxetine HCl (Fluoxetine Hcl 20 Mg Capsule) 60 mg PO DAILY [facility] Last Admin: 10/14/21 09:46 Dose: 60 mg Documented by: Hydroxyzine HCl (Hydroxyzine Hcl 50 Mg Tablet) 50 mg PO BEDTIME PRN PRN Reason: Insomnia Last Admin: 10/13/21 21:33 Dose: 50 mg Documented by: Hydroxyzine HCl (Hydroxyzine Hcl 25 Mg Tablet) 25 mg PO Q6H PRN PRN Reason: Anxiety Last Admin: 10/11/21 22:34 Dose: 25 mg Documented by: Levothyroxine Sodium (Levothyroxine Sodium 75 Mcg Tablet) 75 mcg PO DAILY@0600 [facility] Last Admin: 10/14/21 06:19 Dose: 75 mcg Documented by: Lorazepam (Lorazepam 1 Mg Tablet) 1 mg PO BID PRN PRN Reason: Anxiety Last Admin: 10/13/21 21:00 Dose: 1 mg Documented by: Magnesium Hydroxide (Milk Of Magnesia 30 Ml Oral.Susp) 30 ml PO DAILY PRN PRN Reason: Constipation Melatonin (Melatonin 3 Mg Tablet) 6 mg PO BEDTIME PRN PRN Reason: Insomnia Last Admin: 10/13/21 21:33 Dose: 6 mg Documented by: Metformin HCl (Metformin Hcl 500 Mg Tablet) 500 mg PO BIDWM [facility] Last Admin: 10/14/21 08:06 Dose: 500 mg Documented by: Mago Neal Med( (Probiotic Gx 1 Tab)) 1 tab PO DAILY [facility] Last Admin: 10/14/21 09:09 Dose: 1 tab Documented by: Omeprazole (Omeprazole 40 Mg Capsule.Dr) 40 mg PO BID@0630,1630 [facility] Last Admin: 10/14/21 06:19 Dose: 40 mg Documented by: Ondansetron HCl (Ondansetron Odt 4 Mg Tab.Rapdis) 4 mg TRANSLINGU Q8H PRN PRN Reason: Nausea and Vomiting Last Admin: 10/13/21 10:07 Dose: 4 mg Documented by: Sucralfate (Sucralfate Oral Suspension 1 Gm/10 Ml Oral.Susp) 1 gm PO QIDACHS [facility] Last Admin: 10/14/21 08:06 Dose: 1 gm Documented by: Topiramate (Topiramate 100 Mg Tablet) 100 mg PO DAILY [facility] Last Admin: 10/13/21 10:07 Dose: 100 mg Documented by: Trazodone HCl (Trazodone Hcl 25 Mg Halftab) 12.5 mg PO BEDTIME [facility] Last Admin: 10/13/21 20:59 Dose: 12.5 mg Documented by: Vitamin D (Cholecalciferol (Vitamin D3) 25 Mcg Tablet) 25 mcg PO DAILY [facility] Last Admin: 10/13/21 10:07 Dose: 25 mcg Documented by: Allergies Allergies Allergy/AdvReac Type Severity Reaction Status Date / Time gabapentin Allergy Unknown Verified 11/27/20 13:51 Assessment & Plan Assessment & Plan (1) Chronic post-traumatic stress disorder (PTSD): Status: Acute Code(s): F43.12 - Post-traumatic stress disorder, chronic (2) Major depressive disorder, recurrent severe without psychotic features: Status: Acute Code(s): F33.2 - Major depressive disorder, recurrent severe without psychotic features (3) Hypothyroidism: Status: Acute Code(s): E03.9 - Hypothyroidism, unspecified (4) Gastritis: Status: Acute Code(s): K29.70 - Gastritis, unspecified, without bleeding Plan Patient is a 51-year-old female with history of refractory depression, PTSD and body dysmorphia, who presents for worsening depression and suicide attempt by overdose in the face of having missed ketamine dose and increasing psychosocial stressors. Formulation: Long history of refractory depression with many medication trials.? No history of ECT or T MS; no history of Wellbutrin.? Also only remote history of therapy.? Patient's history of emotional trauma seems to be a very significant contribution to her chronic depression of which therapy will likely be an essential component to treatment -patient willing to try Wellbutrin at this time -met with Dr. Mei and patient is Considering ECT for organic component to depression Plan: CV Q15min 1. Depression: START Wellbutrin XL 150mg daily; will titrate Considering ECT cholecalciferol (vitamin D3) 25 mcg PO DAILY cyanocobalamin (vitamin B-12) 1000 mcg PO DAILY fluoxetine 20 mg capsule DAILY hydroxyzine HCl 50 mg tabletBEDTIME PRN levothyroxine 75 mcg tablet QAM lorazepam 2 mg tablet BID PRN metformin 500 mg tablet BID topiramate 100 mg tablet daily 2. Gastritis: Ct scan with thickened gastric lining consistent with gastritis, improving with carafate Dr. Early?Wise: 1/ Cont with PPi e.g pantoprazole 40 mg daily is ok 2/ cont with carafate 1 g BID for 2 weeks 3/ If worsening sx can consider EGD for further assessment, avoid nsaids 10/14/21: Continue current plan. Pt finds she is better able to sleep with change from Wellbutrin XL to Wellbutrin. I spent minutes with the patient and/or on the patient floor today, greater than?50% of which was spent counseling/coordinating care. Patient educated on: medication risk/benefits and therapeutic strategies Informed Consent: understands Reason for contiued inpatient stay Substantial Risk for: rapid decompensation
[2021-10-14] MEDS: buPROPion HCL 100 MG TABLET PO (12:14)
[2021-10-14] MEDS: buPROPion HCl XL 150 MG TAB.ER.24H PO (12:14)
[2021-10-14] MEDS: Cyanocobalamin (Vitamin B-12) 1,000 MCG TABLET 1000 MCG PO (12:14)
[2021-10-14] MEDS: Topiramate 100 MG TABLET PO (12:14)
[2021-10-14] MEDS: Cholecalciferol (Vitamin D3) 25 MCG TABLET PO (12:15)
[2021-10-14 18:00] VITALS: BP 123/73; PULSE 65; TEMP 36.8; O2SAT 98
[2021-10-14] MEDS: traZODone HCL 25 MG HALFTAB 12.5 MG PO (21:18)
[2021-10-14] MEDS: hydrOXYzine HCL 50 MG TABLET PO (21:18)
[2021-10-15 06:00] VITALS: BP 114/56; PULSE 69; RESP 18; TEMP 36.6; O2SAT 97
[2021-10-15] MEDS: Levothyroxine Sodium 75 MCG TABLET PO (06:30)
[2021-10-15] MEDS: Omeprazole 40 MG CAPSULE.DR PO ×2 (06:30→16:49)
[2021-10-15] MEDS: LORazepam 1 MG TABLET PO ×2 (06:34→21:41)
[2021-10-15] MEDS: Sucralfate Oral Suspension 1 GM/10 ML ORAL.SUSP PO ×4 (08:41→20:38)
[2021-10-15] MEDS: FLUoxetine HCl 20 MG CAPSULE 60 MG PO (08:42)
[2021-10-15] MEDS: metFORMIN HCl 500 MG TABLET PO ×2 (08:42→16:49)
[2021-10-15] MEDS: Topiramate 100 MG TABLET PO (11:51)
[2021-10-15] MEDS: Cholecalciferol (Vitamin D3) 25 MCG TABLET PO (11:51)
[2021-10-15] MEDS: Cyanocobalamin (Vitamin B-12) 1,000 MCG TABLET 1000 MCG PO (11:51)
[2021-10-15] MEDS: buPROPion HCL 100 MG TABLET PO (11:51)
--- NOTE | 2021-10-15 15:15 | P.PNPSI_ITS ---
Subjective Subjective Date of Service: 10/15/21 Reason For Visit: SI Interim History: Patient reports continued depression though she is hopeful that ECT will be effective. Patient reports that Wellbutrin is causing sleep disturbance and would like to increase trazodone. She also agrees to clonidine to help her stop thinking about various things when she is going to sleep. Patient reports history of nightmares, up to 3 per week often of being left alone and reminiscent of feelings of being neglected. Patient further explained her history of ketamine which she said did work well for the first 6 months however soon after the affects started to wane and once she moved back with her mother and started working again, her depression consistently increased leading up to this suicide attempt. Lot Worker reviewed history and it is still unclear whether she has Discrete manic episodes as much of the time she is A little bit hypomanic. Patient denies that there are any discrete episodes where she is having manic symptoms and that at baseline she talks fast, has high energy, has high libido; she denies ever having any bouts of insomnia. However Lot Worker also spoke with patient's out patient psychiatrist Dr. Gonzalez Who Reports concern for possible hypomanic episodes but agrees there is likely overlap with borderline traits and history of trauma. He to agrees that ECT could possibly be helpful and that ultimately patient needs to engage in therapy adjunct faculty for medical terminology. He reports that she has had several serious suicide attempts and that her suicidality can come on quickly and impulsively. Dr. Gonzalez confirms that patient not tolerated numerous med trials. Reviewed list of failed medication trials which include the following: Prozac Zoloft Mirtazapine Effexor Vrylar Latuda Bryant Abilify Lamictal Rexulti Seroquel Zyprexa depakote Diagnostics Vital Signs (24Hr): Vital Signs - 24 hr 10/14/21 18:00 10/15/21 06:00 Temperature 98.3 F 97.8 F Pulse Rate 65 69 Respiratory Rate 18 Blood Pressure 123/73 114/56 L Pulse Oximetry 98 97 BMI result Body Mass Index 29.7 Labs Results: 10/11/21 10:23 Medications Medications Current Medications Acetaminophen (Acetaminophen 325 Mg Tablet) 650 mg PO Q6H PRN PRN Reason: Headache/Pain Mild Scale (1-3) Al Hydroxide/Mg Hydroxide (Magnesium Hydrox/Alum Hydrox 30 Ml Oral.Susp) 30 ml PO Q6H PRN PRN Reason: Heartburn/Nausea Bupropion HCl (Bupropion Hcl 100 Mg Tablet) 100 mg PO DAILY [facility] Last Admin: 10/15/21 11:51 Dose: 100 mg Documented by: Clonidine HCl (Clonidine Hcl 0.1 Mg Tablet) 0.1 mg PO BEDTIME PRN; Protocol PRN Reason: nighttime anxiety/continued insomnia Cyanocobalamin (Cyanocobalamin (Vitamin B-12) 1,000 Mcg Tablet) 1,000 mcg PO DAILY [facility] Last Admin: 10/15/21 11:51 Dose: 1,000 mcg Documented by: Fluoxetine HCl (Fluoxetine Hcl 20 Mg Capsule) 60 mg PO DAILY [facility] Last Admin: 10/15/21 08:42 Dose: 60 mg Documented by: Hydroxyzine HCl (Hydroxyzine Hcl 50 Mg Tablet) 50 mg PO BEDTIME PRN PRN Reason: Insomnia Last Admin: 10/14/21 21:18 Dose: 50 mg Documented by: Hydroxyzine HCl (Hydroxyzine Hcl 25 Mg Tablet) 25 mg PO Q6H PRN PRN Reason: Anxiety Last Admin: 10/11/21 22:34 Dose: 25 mg Documented by: Levothyroxine Sodium (Levothyroxine Sodium 75 Mcg Tablet) 75 mcg PO DAILY@0600 [facility] Last Admin: 10/15/21 06:30 Dose: 75 mcg Documented by: Lorazepam (Lorazepam 1 Mg Tablet) 1 mg PO BID PRN PRN Reason: Anxiety Last Admin: 10/15/21 06:34 Dose: 1 mg Documented by: Magnesium Hydroxide (Milk Of Magnesia 30 Ml Oral.Susp) 30 ml PO DAILY PRN PRN Reason: Constipation Melatonin (Melatonin 3 Mg Tablet) 6 mg PO BEDTIME PRN PRN Reason: Insomnia Last Admin: 10/13/21 21:33 Dose: 6 mg Documented by: Metformin HCl (Metformin Hcl 500 Mg Tablet) 500 mg PO BIDWM [facility] Last Admin: 10/15/21 08:42 Dose: 500 mg Documented by: Pat Own Med( (Probiotic Gx 1 Tab)) 1 tab PO DAILY [facility] Last Admin: 10/15/21 11:50 Dose: 1 tab Documented by: Omeprazole (Omeprazole 40 Mg Capsule.) 40 mg PO BID@0630,1630 [facility] Last Admin: 10/15/21 06:30 Dose: 40 mg Documented by: Ondansetron HCl (Ondansetron Odt 4 Mg Tab.Rapdis) 4 mg TRANSLINGU Q8H PRN PRN Reason: Nausea and Vomiting Last Admin: 10/13/21 10:07 Dose: 4 mg Documented by: Sucralfate (Sucralfate Oral Suspension 1 Gm/10 Ml Oral.Susp) 1 gm PO QIDACHS [facility] Last Admin: 10/15/21 11:55 Dose: 1 gm Documented by: Topiramate (Topiramate 100 Mg Tablet) 100 mg PO DAILY [facility] Last Admin: 10/15/21 11:51 Dose: 100 mg Documented by: Trazodone HCl (Trazodone Hcl 25 Mg Halftab) 25 mg PO BEDTIME [facility] Vitamin D (Cholecalciferol (Vitamin D3) 25 Mcg Tablet) 25 mcg PO DAILY [facility] Last Admin: 10/15/21 11:51 Dose: 25 mcg Documented by: Allergies Allergies Allergy/AdvReac Type Severity Reaction Status Date / Time gabapentin Allergy Unknown Verified 11/27/20 13:51 Assessment & Plan Assessment & Plan (1) Chronic post-traumatic stress disorder (PTSD): Status: Acute Code(s): F43.12 - Post-traumatic stress disorder, chronic (2) Major depressive disorder, recurrent severe without psychotic features: Status: Acute Code(s): F33.2 - Major depressive disorder, recurrent severe without psychotic features (3) Hypothyroidism: Status: Acute Code(s): E03.9 - Hypothyroidism, unspecified (4) Gastritis: Status: Acute Code(s): K29.70 - Gastritis, unspecified, without bleeding Plan Patient is a 51-year-old female with history of refractory depression, PTSD and body dysmorphia, who presents for worsening depression and suicide attempt by overdose in the face of having missed ketamine dose and increasing psychosocial stressors. Formulation: Long history of refractory depression with many medication trials.? Patient has been on ketamine for the past year and a half which Was only effective initially and when patient had low psychosocial stressors present. ? Also only remote history of therapy.? Patient's history of emotional trauma seems to be a very significant contribution to her chronic depression of which therapy will likely be an essential component to treatment. History is still unclear as to whether she has Discrete manic episodes and reports at her baseline she talks fast, has high energy, has high libido and that these things do not increase in intensity; she denies ever having any bouts of insomnia; She says the only times she ever feels any kind of elation is when she has either lost weight or closed a good financial deal. Patient's presentation and report of her baseline does suggest possible chronic hypomania; leader writer also spoke with patient's outpatient psychiatrist Dr. Gonzalez Who Reports concern for possible hypomanic episodes but agrees there is overlap with borderline traits and history of trauma. He to agrees that ECT could possibly be helpful and that ultimately patient needs to engage in therapy [facility]. He reports that she has had several serious suicide attempts and that her suicidality can come on quickly and impulsively. Plan: CV Q15min 1. Depression: changed to immediate release since XL Wellbutrin causing sleep disturbance start Trazodone 25mg for insomnia (Sometimes higher doses give hangover effect) Start clonidine 0.1 mg q.h.s. for anxiety at bedtime ECT #1 pending for 10/17 cholecalciferol (vitamin D3) 25 mcg PO DAILY cyanocobalamin (vitamin B-12) 1000 mcg PO DAILY fluoxetine 20 mg capsule DAILY hydroxyzine HCl 50 mg tabletBEDTIME PRN levothyroxine 75 mcg tablet QAM lorazepam 2 mg tablet BID PRN metformin 500 mg tablet BID topiramate 100 mg tablet daily 2.Gastritis: Ct scan with thickened gastric lining consistent with gastritis, improving with carafate Dr. Early?Billie: 1/ Cont with PPi e.g pantoprazole 40 mg daily is ok 2/ cont with carafate 1 g BID for 2 weeks 3/ If worsening sx can consider EGD for further assessment, avoid nsaids For Day to Day events and medical decision making... Hospital Course: 10/14/21: Continue current plan. Pt finds she is better able to sleep with change from Wellbutrin XL to Wellbutrin. 10/15 Patient reports continued depression though she is hopeful that ECT will be effective. Patient reports that Wellbutrin is causing sleep disturbance and would like to increase trazodone. She also agrees to clonidine to help her stop thinking about various things when she is going to sleep. Patient reports history of nightmares, up to 3 per week often of being left alone and reminiscent of feelings of being neglected. Patient further explained her history of ketamine which she said did work well for the first 6 months however soon after the affects started to wane and once she moved back with her mother and started working again, her depression consistently increased leading up to this suicide attempt. Dr. Gonzalez confirms that patient not tolerated numerous med trials. Reviewed list of failed medication trials which include the following: Prozac Zoloft Mirtazapine Effexor Vrylar Latuda Bryant Abilify Lamictal Rexulti Seroquel Zyprexa depakote I spent minutes with the patient and/or on the patient floor today, greater than?50% of which was spent counseling/coordinating care. Patient educated on: diagnosis, ECT and therapeutic strategies Informed Consent: understands Reason for contiued inpatient stay Substantial Risk for: rapid decompensation
[2021-10-15 18:00] VITALS: RESP 16
[2021-10-15] MEDS: hydrOXYzine HCL 50 MG TABLET PO (20:38)
[2021-10-15] MEDS: traZODone HCL 25 MG HALFTAB PO (20:38)
[2021-10-15] MEDS: cloNIDine HCL 0.1 MG TABLET PO (22:35)
[2021-10-15 22:39] VITALS: BP 118/80; PULSE 71
[2021-10-15] MEDS: traZODone HCL 50 MG TABLET PO (23:40)
[2021-10-16 06:00] VITALS: BP 116/77; PULSE 68; RESP 18; TEMP 36.4; O2SAT 98
[2021-10-16] MEDS: Omeprazole 40 MG CAPSULE.DR PO ×2 (06:42→16:50)
[2021-10-16] MEDS: Levothyroxine Sodium 75 MCG TABLET PO (06:42)
[2021-10-16] MEDS: Topiramate 100 MG TABLET PO (09:37)
[2021-10-16] MEDS: metFORMIN HCl 500 MG TABLET PO ×2 (09:37→16:50)
[2021-10-16] MEDS: Sucralfate Oral Suspension 1 GM/10 ML ORAL.SUSP PO ×4 (09:37→20:47)
[2021-10-16] MEDS: Cholecalciferol (Vitamin D3) 25 MCG TABLET PO (09:37)
[2021-10-16] MEDS: Cyanocobalamin (Vitamin B-12) 1,000 MCG TABLET 1000 MCG PO (09:37)
[2021-10-16] MEDS: FLUoxetine HCl 20 MG CAPSULE 60 MG PO (09:37)
--- NOTE | 2021-10-16 16:01 | P.PNPSI_ITS ---
Subjective Subjective Date of Service: 10/16/21 Reason For Visit: SI Interim History: Patient reports continued insomnia with Wellbutrin and no longer wants to take it. She took an extra p.r.n. of trazodone and says she has been feeling tired all day. Patient wants to stick with just ECT. She remains depressed but also hopeful; no SI Mental Status Exam Mental Status Exam Narrative: Pt is alert and oriented; behavior is cooperative;; dressed in casual attire with combed hair, pulled back and adequate hygiene; mood is described as ok and affect congruent, calm; eye contact appropriate; Speech is normal rate, volume and prosody and not pressured; no psychomotor agitation/retardation present; thought process is organized and goal directed; Thought content is treatment, getting ECT; otherwise pertinent to relevant topics and without any delusional content, paranoid ideations or grandiosity; currently denies any SI; no HI. There is no evidence of perceptual disturbance. ?Patients insight and judgment are impaired but improving. Diagnostics Vital Signs (24Hr): Vital Signs - 24 hr 10/15/21 18:00 10/15/21 22:39 10/16/21 06:00 Temperature 97.6 F Pulse Rate 71 68 Respiratory Rate 16 18 Blood Pressure 118/80 116/77 Pulse Oximetry 98 BMI result Body Mass Index 29.7 Labs Results: 10/11/21 10:23 Medications Medications Current Medications Acetaminophen (Acetaminophen 325 Mg Tablet) 650 mg PO Q6H PRN PRN Reason: Headache/Pain Mild Scale (1-3) Al Hydroxide/Mg Hydroxide (Magnesium Hydrox/Alum Hydrox 30 Ml Oral.Susp) 30 ml PO Q6H PRN PRN Reason: Heartburn/Nausea Clonidine HCl (Clonidine Hcl 0.1 Mg Tablet) 0.1 mg PO BEDTIME PRN; Protocol PRN Reason: nighttime anxiety/continued insomnia Last Admin: 10/15/21 22:35 Dose: 0.1 mg Documented by: Cyanocobalamin (Cyanocobalamin (Vitamin B-12) 1,000 Mcg Tablet) 1,000 mcg PO DAILY [facility] Last Admin: 10/16/21 09:37 Dose: 1,000 mcg Documented by: Fluoxetine HCl (Fluoxetine Hcl 20 Mg Capsule) 60 mg PO DAILY [facility] Last Admin: 10/16/21 09:37 Dose: 60 mg Documented by: Hydroxyzine HCl (Hydroxyzine Hcl 25 Mg Tablet) 25 mg PO Q6H PRN PRN Reason: Anxiety Last Admin: 10/11/21 22:34 Dose: 25 mg Documented by: Hydroxyzine HCl (Hydroxyzine Hcl 50 Mg Tablet) 100 mg PO BEDTIME PRN PRN Reason: Insomnia Levothyroxine Sodium (Levothyroxine Sodium 75 Mcg Tablet) 75 mcg PO DAILY@0600 [facility] Last Admin: 10/16/21 06:42 Dose: 75 mcg Documented by: Lorazepam (Lorazepam 1 Mg Tablet) 1 mg PO BID PRN PRN Reason: Anxiety Last Admin: 10/15/21 21:41 Dose: 1 mg Documented by: Magnesium Hydroxide (Milk Of Magnesia 30 Ml Oral.Susp) 30 ml PO DAILY PRN PRN Reason: Constipation Melatonin (Melatonin 3 Mg Tablet) 6 mg PO BEDTIME PRN PRN Reason: Insomnia Last Admin: 10/13/21 21:33 Dose: 6 mg Documented by: Metformin HCl (Metformin Hcl 500 Mg Tablet) 500 mg PO BIDWM [facility] Last Admin: 10/16/21 09:37 Dose: 500 mg Documented by: Pat Own Med( (Probiotic Gx 1 Tab)) 1 tab PO DAILY [facility] Last Admin: 10/16/21 09:36 Dose: 1 tab Documented by: Omeprazole (Omeprazole 40 Mg Capsule.Dr) 40 mg PO BID@0630,1630 [facility] Last Admin: 10/16/21 06:42 Dose: 40 mg Documented by: Ondansetron HCl (Ondansetron Odt 4 Mg Tab.Rapdis) 4 mg TRANSLINGU Q8H PRN PRN Reason: Nausea and Vomiting Last Admin: 10/13/21 10:07 Dose: 4 mg Documented by: Sucralfate (Sucralfate Oral Suspension 1 Gm/10 Ml Oral.Susp) 1 gm PO QIDACHS [facility] Last Admin: 10/16/21 11:44 Dose: 1 gm Documented by: Topiramate (Topiramate 100 Mg Tablet) 100 mg PO DAILY [facility] Last Admin: 10/16/21 09:37 Dose: 100 mg Documented by: Trazodone HCl (Trazodone Hcl 25 Mg Halftab) 25 mg PO BEDTIME PRN PRN Reason: continued insomnia Vitamin D (Cholecalciferol (Vitamin D3) 25 Mcg Tablet) 25 mcg PO DAILY [facility] Last Admin: 10/16/21 09:37 Dose: 25 mcg Documented by: Allergies Allergies Allergy/AdvReac Type Severity Reaction Status Date / Time gabapentin Allergy Unknown Verified 11/27/20 13:51 Assessment & Plan Assessment & Plan (1) Chronic post-traumatic stress disorder (PTSD): Status: Acute Code(s): F43.12 - Post-traumatic stress disorder, chronic (2) Major depressive disorder, recurrent severe without psychotic features: Status: Acute Code(s): F33.2 - Major depressive disorder, recurrent severe without psychotic features (3) Hypothyroidism: Status: Acute Code(s): E03.9 - Hypothyroidism, unspecified (4) Gastritis: Status: Acute Code(s): K29.70 - Gastritis, unspecified, without bleeding Plan Patient is a 51-year-old female with history of refractory depression, PTSD and body dysmorphia, who presents for worsening depression and suicide attempt by overdose in the face of having missed ketamine dose and increasing psychosocial stressors. Formulation: Long history of refractory depression with many medication trials.? Patient has been on ketamine for the past year and a half which Was only effective initially and when patient had low psychosocial stressors present. ? Also only remote history of therapy.? Patient's history of emotional trauma seems to be a very significant contribution to her chronic depression of which therapy will likely be an essential component to treatment. History is still unclear as to whether she has Discrete manic episodes and reports at her baseline she talks fast, has high energy, has high libido and that these things do not increase in intensity; she denies ever having any bouts of insomnia; She says the only times she ever feels any kind of elation is when she has either lost weight or closed a good financial deal. Patient's presentation and report of her baseline does suggest possible chronic hypomania; communications writer also spoke with patient's outpatient psychiatrist Dr. Gonzalez Who Reports concern for possible hypomanic episodes but agrees there is overlap with borderline traits and history of trauma. He to agrees that ECT could possibly be helpful and that ultimately patient needs to engage in therapy intermodal customer service. He reports that she has had several serious suicide attempts and that her suicidality can come on quickly and impulsively. Plan: CV Q15min 1. Depression: ECT #1 pending for 6/8 NPO after midnight DC Wellbutrin; causing sleep disturbance Trazodone 25mg for insomnia (Sometimes higher doses give hangover effect) clonidine 0.1 mg q.h.s. for anxiety at bedtime cholecalciferol (vitamin D3) 25 mcg PO DAILY cyanocobalamin (vitamin B-12) 1000 mcg PO DAILY fluoxetine 20 mg capsule DAILY hydroxyzine HCl 50 mg tabletBEDTIME PRN levothyroxine 75 mcg tablet QAM lorazepam 2 mg tablet BID PRN metformin 500 mg tablet BID topiramate 100 mg tablet daily 2.Gastritis: Ct scan with thickened gastric lining consistent with gastritis, improving with carafate Dr. Early?Wise: 1/ Cont with PPi e.g pantoprazole 40 mg daily is ok 2/ cont with carafate 1 g BID for 2 weeks 3/ If worsening sx can consider EGD for further assessment, avoid nsaids For Day to Day events and medical decision making... Hospital Course: -communications writer reviewed risks/side effects of ECT; Dr. Mei did as well; patient consents and wants to proceed with ECT trial 10/14/21: Continue current plan. Pt finds she is better able to sleep with change from Wellbutrin XL to Wellbutrin. 10/15 Patient reports continued depression though she is hopeful that ECT will be effective. Patient reports that Wellbutrin is causing sleep disturbance and would like to increase trazodone. She also agrees to clonidine to help her stop thinking about various things when she is going to sleep. Patient reports history of nightmares, up to 3 per week often of being left alone and reminiscent of feelings of being neglected. Patient further explained her history of ketamine which she said did work well for the first 6 months however soon after the affects started to wane and once she moved back with her mother and started working again, her depression consistently increased leading up to this suicide attempt. Dr. Gonzalez confirms that patient not tolerated numerous med trials. Reviewed list of failed medication trials which include the following: Prozac Zoloft Mirtazapine Effexor Vrylar Latuda [place] Abilify Lamictal Rexulti Seroquel Zyprexa depakote I spent minutes with the patient and/or on the patient floor today, greater than?50% of which was spent counseling/coordinating care. Patient educated on: diagnosis and ECT Informed Consent: understands Reason for contiued inpatient stay Substantial Risk for: rapid decompensation
[2021-10-16 18:00] VITALS: BP 133/66; PULSE 67
[2021-10-16] MEDS: hydrOXYzine HCL 50 MG TABLET 100 MG PO (20:45)
[2021-10-16 22:40] VITALS: BP 133/75; PULSE 64
[2021-10-16] MEDS: cloNIDine HCL 0.1 MG TABLET PO (22:43)
--- NOTE | 2021-10-16 22:48 | PC.NURSE ---
Patient woke up At 2230 and said she was having racing thoughts , requested and received Clonidine 0.1 mg po as a prn with effect pending.
[2021-10-17] VITALS (12 sets, daily range): BP systolic 94–168; BP diastolic 62–101; PULSE 61–81; RESP 16–20; TEMP 35.9–36.4; O2SAT 95–98
--- NOTE | 2021-10-17 06:53 | P.CONAN_ITS ---
[facility] Active Problems Active Problems: All Active Problems (Updated 10/11/21 @ 18:15 by Nneka Wise MD) Gastritis (Acute) Chronic post-traumatic stress disorder (PTSD) (Acute) Major depressive disorder, recurrent severe without psychotic features (Acute) Coffee ground vomiting (Acute) Low vitamin B12 level (Acute) Hypothyroidism (Acute) Diabetes (Acute) Intentional overdose (Acute) Depression (Acute) Suicidal ideation (Acute) Strain of right knee (Acute) Right knee pain (Acute) Strain of left knee (Acute) Past Medical History Medical History (Updated 10/11/21 @ 18:15 by Nneka Wise MD) Chronic post-traumatic stress disorder (PTSD) Major depressive disorder, recurrent severe without psychotic features Family History Family history of problems with anesthesia: No Surgical History History of Problems with Anesthesia: No Social History Social History Household Members: Unknown / Unable to assess Housing: Unknown / Unable to assess Do you presently have visiting nurse or other home services: No Patient Tobacco Use Status: Tobacco use Unknown Tobacco use type: Cigarette Cigarettes Per Day: 1 Smoked in Last 30 Days: Yes Patient Interested in Nicotine Replacement: No Patient Given Instructions on How to Stop Smoking: Yes Date Education Initiated: 10/10/21 Second Hand Smoke Exposure: Yes Use of substances other than those prescribed or required for medical reasons: No Currently Displaying Signs/Symptoms of Drug Intoxication Withdrawal: No Spiritual Healthcare Practices: Unknown, pt sleeping Hoahaoism Healthcare Practices: Unknown, pt sleeping Cultural Healthcare Practices: Unknown, pt sleeping Advance Directives: No Advance Directives Information Provided: No Advance Directives on File: No Do you have thoughts of harming others: None Do you have a plan to hurt others: No Plan Recently lost weight without trying: No Eating poorly because of decreased appetite: No Nutrition Risks: No Nutritional Risk Patient : No : No service: No Current occupational status: unemployed Sexual orientation: Straight/Heterosexual Meds Allergies Allergy/AdvReac Type Severity Reaction Status Date / Time gabapentin Allergy Unknown Verified 11/27/20 13:51 Active Medications: Current Medications Acetaminophen (Acetaminophen 325 Mg Tablet) 650 mg PO Q6H PRN PRN Reason: Headache/Pain Mild Scale (1-3) Al Hydroxide/Mg Hydroxide (Magnesium Hydrox/Alum Hydrox 30 Ml Oral.Susp) 30 ml PO Q6H PRN PRN Reason: Heartburn/Nausea Clonidine HCl (Clonidine Hcl 0.1 Mg Tablet) 0.1 mg PO BEDTIME PRN; Protocol PRN Reason: nighttime anxiety/continued insomnia Last Admin: 10/16/21 22:43 Dose: 0.1 mg Cyanocobalamin (Cyanocobalamin (Vitamin B-12) 1,000 Mcg Tablet) 1,000 mcg PO DAILY [facility] Last Admin: 10/16/21 09:37 Dose: 1,000 mcg Fluoxetine HCl (Fluoxetine Hcl 20 Mg Capsule) 60 mg PO DAILY [facility] Last Admin: 10/16/21 09:37 Dose: 60 mg Hydroxyzine HCl (Hydroxyzine Hcl 25 Mg Tablet) 25 mg PO Q6H PRN PRN Reason: Anxiety Last Admin: 10/11/21 22:34 Dose: 25 mg Hydroxyzine HCl (Hydroxyzine Hcl 50 Mg Tablet) 100 mg PO BEDTIME PRN PRN Reason: Insomnia Last Admin: 10/16/21 20:45 Dose: 100 mg Levothyroxine Sodium (Levothyroxine Sodium 75 Mcg Tablet) 75 mcg PO DAILY@0600 [facility] Last Admin: 10/16/21 06:42 Dose: 75 mcg Lorazepam (Lorazepam 1 Mg Tablet) 1 mg PO BID PRN PRN Reason: Anxiety Last Admin: 10/15/21 21:41 Dose: 1 mg Magnesium Hydroxide (Milk Of Magnesia 30 Ml Oral.Susp) 30 ml PO DAILY PRN PRN Reason: Constipation Melatonin (Melatonin 3 Mg Tablet) 6 mg PO BEDTIME PRN PRN Reason: Insomnia Last Admin: 10/13/21 21:33 Dose: 6 mg Metformin HCl (Metformin Hcl 500 Mg Tablet) 500 mg PO BIDWM [facility] Last Admin: 10/16/21 16:50 Dose: 500 mg Pat Own Med( (Probiotic Gx 1 Tab)) 1 tab PO DAILY [facility] Last Admin: 10/16/21 09:36 Dose: 1 tab Omeprazole (Omeprazole 40 Mg Capsule.Dr) 40 mg PO BID@0630,1630 [facility] Last Admin: 10/16/21 16:50 Dose: 40 mg Ondansetron HCl (Ondansetron Odt 4 Mg Tab.Rapdis) 4 mg TRANSLINGU Q8H PRN PRN Reason: Nausea and Vomiting Last Admin: 10/13/21 10:07 Dose: 4 mg Sucralfate (Sucralfate Oral Suspension 1 Gm/10 Ml Oral.Susp) 1 gm PO QIDACHS [facility] Last Admin: 10/16/21 20:47 Dose: 1 gm Topiramate (Topiramate 100 Mg Tablet) 100 mg PO DAILY [facility] Last Admin: 10/16/21 09:37 Dose: 100 mg Trazodone HCl (Trazodone Hcl 25 Mg Halftab) 25 mg PO BEDTIME PRN PRN Reason: continued insomnia Vitamin D (Cholecalciferol (Vitamin D3) 25 Mcg Tablet) 25 mcg PO DAILY [facility] Last Admin: 10/16/21 09:37 Dose: 25 mcg Home Medications Medication Instructions Recorded Confirmed Last Taken Type cholecalciferol (vitamin D3) 25 25 mcg PO DAILY 10/07/21 10/10/21 10/07/21 History mcg (1,000 unit) tablet cyanocobalamin (vitamin B-12) 1,000 mcg PO DAILY 10/07/21 10/10/21 10/07/21 History 1,000 mcg tablet fluoxetine 20 mg capsule 3 cap PO DAILY 10/07/21 10/10/21 10/07/21 History hydroxyzine HCl 50 mg tablet 1 tab PO BEDTIME PRN Insomnia 10/07/21 10/10/21 10/07/21 History levothyroxine 75 mcg tablet 1 tab PO QAM 10/07/21 10/10/21 10/07/21 History (Synthroid) lorazepam 2 mg tablet 4 mg PO BID PRN Anxiety 10/07/21 10/10/21 Unknown History metformin 500 mg tablet 1 tab PO BID 10/07/21 10/10/21 10/07/21 History oxycodone 5 mg capsule 1 - 2 cap PO TID PRN pain 10/07/21 10/10/21 10/07/21 History topiramate 100 mg tablet 100 mg PO DAILY 10/07/21 10/10/21 10/07/21 History Exam Exam Date and Time: October 17, 2021 0653 Height,Weight and Vital Signs: Height 5 ft 3 in Weight 76.3 kg Last Vital Signs Temp 96.7 F L 10/17/21 06:26 Pulse 61 10/17/21 06:26 Resp 16 10/17/21 06:26 BP 130/74 10/17/21 06:26 Pulse Ox 96 10/17/21 06:00 O2 Del Method 10/14/21 18:00 Pertinent Lab Results Pertinent Lab Results: Laboratory Tests 10/11/21 10/11/21 10/12/21 08:06 10:23 17:33 Sodium 140 140 Potassium 3.9 4.1 Chloride 110 H 110 H Carbon Dioxide 22 21 L Anion Gap 12 13 BUN 8 L 9 Creatinine 0.77 0.77 Estim Creat Clear Calc 83.6 83.6 Estimated GFR > 60 > 60 Fasting Glucose 96 114 H Calcium 9.0 D 8.8 Total Bilirubin 0.3 0.4 AST 18 D 21 ALT 21 19 Alkaline Phosphatase 72 D 70 Total Protein 6.1 L 6.1 L Albumin 3.5 3.5 Triglycerides 254 181 Cholesterol 164 158 LDL Cholesterol, Calc 82 89 HDL Cholesterol 32 33 Urine Test NEGATIVE Airway Mallampati Class: II (Missing multiple teeth, history of trach, narrowing with scar tissue) TM Dist: >3cm Neck ROM: Full Heart: rrr Lungs: cta Assessment and Plan Assessment Anesthesia Assessment: Anesthesia Plan Discussed and Chart Reviewed Final Anesthetic Review Family History of Problems with Anesthesia: No History of Problems with Anesthesia: No NPO: Yes ASA Class: III Final Preanesthetic Review: No Changes in Pt Med Stat, Meds/Allgs Chart Reviewed and Consent Obtained/Reviewed Patient Risk: Intermediate Procedure Risk: Intermediate Anesthetic Plan Anesthetic Plan: GA Disposition: Standard PACU
--- NOTE | 2021-10-17 07:34 | P.HPSUR_ITS ---
Pre-Procedural Eval Section A Date of Service: 10/17/21 The patient is an INPATIENT: Yes Changes since office visit: No Cold of Flu in the past 2 weeks, No New Medical Problems, No Changes in Medication and No Patient answered all questions The History & Physical has been completed within 30 days and I have reviewed it.: Yes Section B Chief Complaint: SI Details of Present Illness: Hx of depression, PTSD admitted for suicidal ideation Relevant Family History (Specify if Yes): No Relevant Social History: None Present Medications: see Short Stay Collaborative assessment Medical History: No relevant PMH History of Previous Operations: No relevant previous surgery Allergies: Allergies Allergy/AdvReac Type Severity Reaction Status Date / Time gabapentin Allergy Unknown Verified 11/27/20 13:51 Review of Systems Sugical H&P ROS: Negative: Constitution, Cardiovascular, Respiratory, Neurological, Psychiatric, Hem-Onc, Allergic/Immunologic, Gastrointestinal, G enitourinary, Musculoskeletal, Integumentary, Endocrine and Eyes/Ears/Nose/Throat Exam Surgical H&P Exam: Normal: HEENT, Normal: Heart, Normal: Lungs, Normal: Extremities, Normal: Abdomen, Normal: Skin and Normal: Neurological Plan Diagnosis/Plan: Unchanged I have reviewed the history and physical and performed a pertinent physical examination on my patient. No changes have occurred unless specified.
--- NOTE | 2021-10-17 07:51 | HO.ECTPROC ---
ECT Procedure Note Diagnosis/Treatment Date of Service: 10/17/21 Diagnosis: Major Depressive Disorder Current Treatment Number: 1 Treatment: Series Interval Clinical Notes: The patient reported dysphoria, never had ECT in the past. Understood risks and dbenerfits. ECT Settings Device: THYMATRON DGx Electrode Placement: Right Unilateral Program/Pulse Width: 0.50 Energy Percent: 100 Seizure Duration By EEG (in seconds): 29 By Motor Observation (in seconds): 9 Medications Administration General Anesthetic: Etomidate (14) Muscle Relaxant: Succinylcholine (80) Ancillary Medications Analgesics: Torodol - Pre ECT Anti-emetics: Zofran - Pre ECT Airway Management Airway Management: Bag Mask Ventilation Treatment Recommendations No Changes Recommended: No change Notes: Hold Topamax the night before Pt Tolerated Procedure w/o Issue: Yes
[2021-10-17] MEDS: LORazepam 2 MG/ML VIAL IVPUSH (07:59)
[2021-10-17] MEDS: Omeprazole 40 MG CAPSULE.DR PO ×2 (09:07→16:52)
[2021-10-17] MEDS: Levothyroxine Sodium 75 MCG TABLET PO (09:07)
[2021-10-17] MEDS: FLUoxetine HCl 20 MG CAPSULE 60 MG PO (09:07)
[2021-10-17] MEDS: Sucralfate Oral Suspension 1 GM/10 ML ORAL.SUSP PO ×4 (09:08→23:08)
[2021-10-17] MEDS: Cholecalciferol (Vitamin D3) 25 MCG TABLET PO (09:08)
[2021-10-17] MEDS: Cyanocobalamin (Vitamin B-12) 1,000 MCG TABLET 1000 MCG PO (09:08)
[2021-10-17] MEDS: metFORMIN HCl 500 MG TABLET PO ×2 (09:08→16:52)
[2021-10-17] MEDS: Topiramate 100 MG TABLET PO (09:08)
--- NOTE | 2021-10-17 10:22 | P.PNPSI_ITS ---
Subjective Subjective Date of Service: 10/17/21 Reason For Visit: SI Interim History: Patient tired following ECT. Denies any other side effects and is glad she is starting this treatment. Patient resting in bed. Would like to continue to do so in talk tomorrow Mental Status Exam Mental Status Exam Narrative: Pt is alert and oriented; behavior is cooperative;; dressed in casual attire with unbrushed hair, loosely pulled back and adequate hygiene; mood is described as ok...tired and affect congruent, sleepy; eye contact appropriate; Speech is normal rate, volume and prosody and not pressured; no psychomotor agitation/retardation present; thought process is organized and goal directed; Thought content is treatment, getting ECT; otherwise pertinent to relevant topics and without any delusional content, paranoid ideations or grandiosity; currently denies any SI; no HI. There is no evidence of perceptual disturbance. ?Patients insight and judgment are impaired but improving. Diagnostics Vital Signs (24Hr): Vital Signs - 24 hr 10/16/21 18:00 10/16/21 22:40 10/17/21 06:26 Temperature 96.7 F L Pulse Rate 67 64 61 Respiratory Rate 16 Blood Pressure 133/66 133/75 130/74 Pulse Oximetry Oxygen Delivery Method Oxygen Flow Rate 10/17/21 06:00 10/17/21 06:52 10/17/21 07:52 Temperature 96.7 F L 97.5 F 97.5 F Pulse Rate 61 62 62 Respiratory Rate 16 18 16 Blood Pressure 139/74 126/75 168/101 H Pulse Oximetry 96 97 98 Oxygen Delivery Method Room Air Nasal Cannula Oxygen Flow Rate 2 10/17/21 07:57 10/17/21 08:02 10/17/21 08:07 Temperature Pulse Rate 81 76 78 Respiratory Rate 16 16 16 Blood Pressure 122/70 119/72 123/75 Pulse Oximetry 98 96 98 Oxygen Delivery Method Nasal Cannula Nasal Cannula Nasal Cannula Oxygen Flow Rate 2 2 2 10/17/21 08:22 10/17/21 08:37 10/17/21 08:53 Temperature 97.5 F Pulse Rate 67 68 71 Respiratory Rate 16 16 18 Blood Pressure 108/69 124/70 116/68 Pulse Oximetry 95 95 95 Oxygen Delivery Method Room Air Room Air Room Air Oxygen Flow Rate 10/17/21 09:11 Temperature 97.2 F Pulse Rate 70 Respiratory Rate 18 Blood Pressure 94/62 Pulse Oximetry 95 Oxygen Delivery Method Oxygen Flow Rate BMI result Body Mass Index 29.7 Labs Results: 10/11/21 10:23 Medications Medications Current Medications Acetaminophen (Acetaminophen 325 Mg Tablet) 650 mg PO Q6H PRN PRN Reason: Headache/Pain Mild Scale (1-3) Al Hydroxide/Mg Hydroxide (Magnesium Hydrox/Alum Hydrox 30 Ml Oral.Susp) 30 ml PO Q6H PRN PRN Reason: Heartburn/Nausea Clonidine HCl (Clonidine Hcl 0.1 Mg Tablet) 0.1 mg PO BEDTIME PRN; Protocol PRN Reason: nighttime anxiety/continued insomnia Last Admin: 10/16/21 22:43 Dose: 0.1 mg Cyanocobalamin (Cyanocobalamin (Vitamin B-12) 1,000 Mcg Tablet) 1,000 mcg PO DAILY [facility] Last Admin: 10/17/21 09:08 Dose: 1,000 mcg Fluoxetine HCl (Fluoxetine Hcl 20 Mg Capsule) 60 mg PO DAILY [facility] Last Admin: 10/17/21 09:07 Dose: 60 mg Hydroxyzine HCl (Hydroxyzine Hcl 25 Mg Tablet) 25 mg PO Q6H PRN PRN Reason: Anxiety Last Admin: 10/11/21 22:34 Dose: 25 mg Hydroxyzine HCl (Hydroxyzine Hcl 50 Mg Tablet) 100 mg PO BEDTIME PRN PRN Reason: Insomnia Last Admin: 10/16/21 20:45 Dose: 100 mg Levothyroxine Sodium (Levothyroxine Sodium 75 Mcg Tablet) 75 mcg PO DAILY@0600 [facility] Last Admin: 10/17/21 09:07 Dose: 75 mcg Lorazepam (Lorazepam 1 Mg Tablet) 1 mg PO BID PRN PRN Reason: Anxiety Last Admin: 10/15/21 21:41 Dose: 1 mg Magnesium Hydroxide (Milk Of Magnesia 30 Ml Oral.Susp) 30 ml PO DAILY PRN PRN Reason: Constipation Melatonin (Melatonin 3 Mg Tablet) 6 mg PO BEDTIME PRN PRN Reason: Insomnia Last Admin: 10/13/21 21:33 Dose: 6 mg Metformin HCl (Metformin Hcl 500 Mg Tablet) 500 mg PO BIDWM [facility] Last Admin: 10/17/21 09:08 Dose: 500 mg Pat Own Med( (Probiotic Gx 1 Tab)) 1 tab PO DAILY [facility] Last Admin: 10/17/21 09:08 Dose: 1 tab Omeprazole (Omeprazole 40 Mg Capsule.Dr) 40 mg PO BID@0630,1630 [facility] Last Admin: 10/17/21 09:07 Dose: 40 mg Ondansetron HCl (Ondansetron Odt 4 Mg Tab.Rapdis) 4 mg TRANSLINGU Q8H PRN PRN Reason: Nausea and Vomiting Last Admin: 10/13/21 10:07 Dose: 4 mg Sucralfate (Sucralfate Oral Suspension 1 Gm/10 Ml Oral.Susp) 1 gm PO QIDACHS [facility] Last Admin: 10/17/21 09:08 Dose: 1 gm Topiramate (Topiramate 100 Mg Tablet) 100 mg PO DAILY [facility] Last Admin: 10/17/21 09:08 Dose: 100 mg Trazodone HCl (Trazodone Hcl 25 Mg Halftab) 25 mg PO BEDTIME PRN PRN Reason: continued insomnia Vitamin D (Cholecalciferol (Vitamin D3) 25 Mcg Tablet) 25 mcg PO DAILY [facility] Last Admin: 10/17/21 09:08 Dose: 25 mcg Allergies Allergies Allergy/AdvReac Type Severity Reaction Status Date / Time gabapentin Allergy Unknown Verified 11/27/20 13:51 Assessment & Plan Assessment & Plan (1) Chronic post-traumatic stress disorder (PTSD): Status: Acute Code(s): F43.12 - Post-traumatic stress disorder, chronic (2) Major depressive disorder, recurrent severe without psychotic features: Status: Acute Code(s): F33.2 - Major depressive disorder, recurrent severe without psychotic features (3) Hypothyroidism: Status: Acute Code(s): E03.9 - Hypothyroidism, unspecified (4) Gastritis: Status: Acute Code(s): K29.70 - Gastritis, unspecified, without bleeding Plan Patient is a 51-year-old female with history of refractory depression, PTSD and body dysmorphia, who presents for worsening depression and suicide attempt by overdose in the face of having missed ketamine dose and increasing psychosocial stressors. Formulation: Long history of refractory depression with many medication trials.? Patient has been on ketamine for the past year and a half which Was only effective initially and when patient had low psychosocial stressors present. ? Also only remote history of therapy.? Patient's history of emotional trauma seems to be a very significant contribution to her chronic depression of which therapy will likely be an essential component to treatment. History is still unclear as to whether she has Discrete manic episodes and reports at her baseline she talks fast, has high energy, has high libido and that these things do not increase in intensity; she denies ever having any bouts of insomnia; She says the only times she ever feels any kind of elation is when she has either lost weight or closed a good financial deal. Patient's presentation and report of her baseline does suggest possible chronic hypomania; film writer also spoke with patient's outpatient psychiatrist Dr. Gonzalez Who Reports concern for possible hypomanic episodes but agrees there is overlap with borderline traits and history of trauma. He to agrees that ECT could possibly be helpful and that ultimately patient needs to engage in therapy [employer]. He reports that she has had several serious suicide attempts and that her suicidality can come on quickly and impulsively. Plan: CV Q15min 1. Depression: ECT #1 10/17 ECT#2 PENDING 10/19 NPO after midnight DC Wellbutrin; causing sleep disturbance Trazodone 25mg PRN for insomnia (Sometimes higher doses give hangover effect) clonidine 0.1 mg q.h.s. for anxiety at bedtime cholecalciferol (vitamin D3) 25 mcg PO DAILY cyanocobalamin (vitamin B-12) 1000 mcg PO DAILY fluoxetine 20 mg capsule DAILY hydroxyzine HCl 50 mg tabletBEDTIME PRN levothyroxine 75 mcg tablet QAM lorazepam 2 mg tablet BID PRN Hold day before ECT metformin 500 mg tablet BID topiramate 100 mg tablet daily; Hold day before ECT 2.Gastritis: Ct scan with thickened gastric lining consistent with gastritis, improving with carafate Dr. Early?Wise: 1/ Cont with PPi e.g pantoprazole 40 mg daily is ok 2/ cont with carafate 1 g BID for 2 weeks 3/ If worsening sx can consider EGD for further assessment, avoid nsaids For Day to Day events and medical decision making... Hospital Course: -film writer reviewed risks/side effects of ECT; Dr. Mei did as well; patient consents and wants to proceed with ECT trial 10/14/21: Continue current plan. Pt finds she is better able to sleep with change from Wellbutrin XL to Wellbutrin. 10/15 Patient reports continued depression though she is hopeful that ECT will be effective. Patient reports that Wellbutrin is causing sleep disturbance and would like to increase trazodone. She also agrees to clonidine to help her stop thinking about various things when she is going to sleep. Patient reports history of nightmares, up to 3 per week often of being left alone and reminiscent of feelings of being neglected. Patient further explained her history of ketamine which she said did work well for the first 6 months however soon after the affects started to wane and once she moved back with her mother and started working again, her depression consistently increased leading up to this suicide attempt. Dr. Gonzalez confirms that patient not tolerated numerous med trials. Reviewed list of failed medication trials which include the following: Prozac Zoloft Mirtazapine Effexor Vrylar Latuda [place] Abilify Lamictal Rexulti Seroquel Zyprexa depakote I spent minutes with the patient and/or on the patient floor today, greater than?50% of which was spent counseling/coordinating care. Patient educated on: ECT Informed Consent: understands Reason for contiued inpatient stay Substantial Risk for: rapid decompensation
[2021-10-17] MEDS: Ibuprofen 600 MG TABLET PO (19:45)
[2021-10-17] MEDS: LORazepam 1 MG TABLET PO (20:08)
[2021-10-17] MEDS: hydrOXYzine HCL 50 MG TABLET 100 MG PO (23:09)
[2021-10-17] MEDS: hydrOXYzine HCL 25 MG TABLET PO (23:09)
[2021-10-17] MEDS: cloNIDine HCL 0.1 MG TABLET PO (23:09)
[2021-10-18] MEDS: Levothyroxine Sodium 75 MCG TABLET PO (06:21)
[2021-10-18] MEDS: Omeprazole 40 MG CAPSULE.DR PO ×2 (06:21→17:16)
[2021-10-18 06:38] VITALS: BP 96/55; PULSE 54; RESP 16; TEMP 36.2; O2SAT 86
[2021-10-18] MEDS: metFORMIN HCl 500 MG TABLET PO ×2 (09:08→17:15)
[2021-10-18] MEDS: Topiramate 100 MG TABLET PO (09:08)
[2021-10-18] MEDS: Sucralfate Oral Suspension 1 GM/10 ML ORAL.SUSP PO ×4 (09:08→21:16)
[2021-10-18] MEDS: FLUoxetine HCl 20 MG CAPSULE 60 MG PO (09:08)
[2021-10-18] MEDS: Cyanocobalamin (Vitamin B-12) 1,000 MCG TABLET 1000 MCG PO (09:08)
[2021-10-18] MEDS: Cholecalciferol (Vitamin D3) 25 MCG TABLET PO (09:08)
[2021-10-18 09:16] VITALS: BMI 29.4
[2021-10-18 09:18] LABS: Estimated Glomerular Filt Rate > 60
[2021-10-18] MEDS: Sennosides 8.6 MG TABLET 17.2 MG PO ×2 (12:22→17:26)
--- NOTE | 2021-10-18 15:59 | P.PNPSI_ITS ---
Subjective Subjective Date of Service: 10/18/21 Reason For Visit: SI Interim History: Patient reports that her mood is a little better in that she is hopeful ECT will be helpful. Patient says she slept well last night and that she has not had any nightmares for 2 days, feeling that clonidine has been helpful. No SI. Tolerating ECT and wants to continue. Discussed patient's past history of relationships and turns out patient always wished to get and have a family however felt that her father found against it and interfered. Discussed her complicated relationship with her father and emotional boundaries. Patient talked about perhaps discharging Friday after ECT if she can find transportation to and from hospital to continued ECT as an outpatient. Vehicle Fare Collector spoke to patient's father who corroborated that patient has not had any manic episodes or behaviors independent of when she was abusing crack cocaine. Mental Status Exam Mental Status Exam Narrative: Pt is alert and oriented; behavior is cooperative, calm, friendly; dressed in casual attire with brushed hair, loosely pulled back and adequate hygiene; mood is described as good and affect congruent, bright; eye contact appropriate; Speech is normal rate, volume and prosody and not pressured; no psychomotor agitation/retardation present; thought process is organized and goal directed; Thought content is treatment, getting ECT; also on past processing relationships w/ parents; otherwise pertinent to relevant topics and without any delusional content, paranoid ideations or grandiosity; currently denies any SI; no HI. There is no evidence of perceptual disturbance. ?Patients insight and judgment are impaired but improving. Diagnostics Vital Signs (24Hr): Vital Signs - 24 hr 10/17/21 18:00 10/18/21 06:38 Temperature 96.9 F 97.1 F Pulse Rate 62 54 Respiratory Rate 20 16 Blood Pressure 119/64 96/55 L Pulse Oximetry 98 86 L Oxygen Delivery Method Room Air Room Air BMI result Body Mass Index 29.4 Labs Results: 10/18/21 08:34 Labs: Laboratory Results - last 48 hr 10/18/21 08:34 Creatinine 0.79 Estim Creat Clear Calc 81.0 Estimated GFR > 60 Medications Medications Current Medications Acetaminophen (Acetaminophen 325 Mg Tablet) 650 mg PO Q6H PRN PRN Reason: Headache/Pain Mild Scale (1-3) Al Hydroxide/Mg Hydroxide (Magnesium Hydrox/Alum Hydrox 30 Ml Oral.Susp) 30 ml PO Q6H PRN PRN Reason: Heartburn/Nausea Clonidine HCl (Clonidine Hcl 0.1 Mg Tablet) 0.1 mg PO BEDTIME PRN; Protocol PRN Reason: nighttime anxiety/continued insomnia Last Admin: 10/17/21 23:09 Dose: 0.1 mg Cyanocobalamin (Cyanocobalamin (Vitamin B-12) 1,000 Mcg Tablet) 1,000 mcg PO DAILY [facility] Last Admin: 10/18/21 09:08 Dose: 1,000 mcg Fluoxetine HCl (Fluoxetine Hcl 20 Mg Capsule) 60 mg PO DAILY [facility] Last Admin: 10/18/21 09:08 Dose: 60 mg Hydroxyzine HCl (Hydroxyzine Hcl 25 Mg Tablet) 25 mg PO Q6H PRN PRN Reason: Anxiety Last Admin: 10/17/21 23:09 Dose: 25 mg Hydroxyzine HCl (Hydroxyzine Hcl 50 Mg Tablet) 100 mg PO BEDTIME PRN PRN Reason: Insomnia Last Admin: 10/17/21 23:09 Dose: 100 mg Ibuprofen (Ibuprofen 600 Mg Tablet) 600 mg PO Q8H PRN PRN Reason: Pain, Mild (Pain Scale 1-3) Last Admin: 10/17/21 19:45 Dose: 600 mg Levothyroxine Sodium (Levothyroxine Sodium 75 Mcg Tablet) 75 mcg PO DAILY@0600 [facility] Last Admin: 10/18/21 06:21 Dose: 75 mcg Lorazepam (Lorazepam 1 Mg Tablet) 1 mg PO BID PRN PRN Reason: Anxiety Last Admin: 10/17/21 20:08 Dose: 1 mg Magnesium Hydroxide (Milk Of Magnesia 30 Ml Oral.Susp) 30 ml PO DAILY PRN PRN Reason: Constipation Melatonin (Melatonin 3 Mg Tablet) 6 mg PO BEDTIME PRN PRN Reason: Insomnia Last Admin: 10/13/21 21:33 Dose: 6 mg Metformin HCl (Metformin Hcl 500 Mg Tablet) 500 mg PO BIDWM [facility] Last Admin: 10/18/21 09:08 Dose: 500 mg Pat Own Med( (Probiotic Gx 1 Tab)) 1 tab PO DAILY [facility] [place] Last Admin: 10/18/21 09:10 Dose: 1 tab Omeprazole (Omeprazole 40 Mg Capsule.Dr) 40 mg PO BID@0630,1630 [facility] Last Admin: 10/18/21 06:21 Dose: 40 mg Ondansetron HCl (Ondansetron Odt 4 Mg Tab.Rapdis) 4 mg TRANSLINGU Q8H PRN PRN Reason: Nausea and Vomiting Last Admin: 10/13/21 10:07 Dose: 4 mg Senna (Sennosides 8.6 Mg Tablet) 17.2 mg PO DAILY PRN PRN Reason: Constipation Sucralfate (Sucralfate Oral Suspension 1 Gm/10 Ml Oral.Susp) 1 gm PO QIDACHS [facility] [place] Last Admin: 10/18/21 11:59 Dose: 1 gm Topiramate (Topiramate 100 Mg Tablet) 100 mg PO DAILY [facility] [place] Last Admin: 10/18/21 09:08 Dose: 100 mg Trazodone HCl (Trazodone Hcl 25 Mg Halftab) 25 mg PO BEDTIME PRN PRN Reason: continued insomnia Vitamin D (Cholecalciferol (Vitamin D3) 25 Mcg Tablet) 25 mcg PO DAILY [facility] [place] Last Admin: 10/18/21 09:08 Dose: 25 mcg Allergies Allergies Allergy/AdvReac Type Severity Reaction Status Date / Time gabapentin Allergy Unknown Verified 11/27/20 13:51 Assessment & Plan Assessment & Plan (1) Chronic post-traumatic stress disorder (PTSD): Status: Acute Code(s): F43.12 - Post-traumatic stress disorder, chronic (2) Major depressive disorder, recurrent severe without psychotic features: Status: Acute Code(s): F33.2 - Major depressive disorder, recurrent severe without psychotic features (3) Hypothyroidism: Code(s): E03.9 - Hypothyroidism, unspecified (4) Gastritis: Status: Acute Code(s): K29.70 - Gastritis, unspecified, without bleeding Plan Patient is a 51-year-old female with history of refractory depression, PTSD and body dysmorphia, who presents for worsening depression and suicide attempt by overdose in the face of having missed ketamine dose and increasing psychosocial stressors. Formulation: Long history of refractory depression with many medication trials.? Patient has been on ketamine for the past year and a half which Was only effective initially and when patient had low psychosocial stressors present. ? Also only remote history of therapy.? Patient's history of emotional trauma seems to be a very significant contribution to her chronic depression of which therapy will likely be an essential component to treatment. History is still unclear as to whether she has Discrete manic episodes and reports at her baseline she talks fast, has high energy, has high libido and that these things do not increase in intensity; she denies ever having any bouts of insomnia; She says the only times she ever feels any kind of elation is when she has either lost weight or closed a good financial deal; patients father denies any manic type episodes separate from when she was abusing crack cocaine. Patient's presentation and report of her baseline does suggest possible chronic hypomania; copywriter also spoke with patient's outpatient psychiatrist Dr. 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 He reports that she has had several serious suicide attempts and that her suicidality can come on quickly and impulsively. Plan: CV Q15min 1. Depression: ECT #1 10/17 ECT#2 PENDING 10/19 NPO after midnight DC Wellbutrin; causing sleep disturbance Trazodone 25mg PRN for insomnia (Sometimes higher doses give hangover effect) clonidine 0.1 mg q.h.s. for anxiety at bedtime cholecalciferol (vitamin D3) 25 mcg PO DAILY cyanocobalamin (vitamin B-12) 1000 mcg PO DAILY fluoxetine 20 mg capsule DAILY hydroxyzine HCl 50 mg tabletBEDTIME PRN levothyroxine 75 mcg tablet QAM lorazepam 2 mg tablet BID PRN Hold day before ECT metformin 500 mg tablet BID topiramate 100 mg tablet daily; Hold day before ECT 2.Gastritis: Ct scan with thickened gastric lining consistent with gastritis, improving with carafate Dr. Don: 1/ Cont with PPi e.g pantoprazole 40 mg daily is ok 2/ cont with carafate 1 g BID for 2 weeks 3/ If worsening sx can consider EGD for further assessment, avoid nsaids For Day to Day events and medical decision making... Hospital Course: -copywriter reviewed risks/side effects of ECT; Dr. Mei did as well; patient consents and wants to proceed with ECT trial 10/14/21: Continue current plan. Pt finds she is better able to sleep with change from Wellbutrin XL to Wellbutrin. 10/15 Patient reports continued depression though she is hopeful that ECT will be effective. Patient reports that Wellbutrin is causing sleep disturbance and would like to increase trazodone. She also agrees to clonidine to help her stop thinking about various things when she is going to sleep. Patient reports history of nightmares, up to 3 per week often of being left alone and reminiscent of feelings of being neglected. Patient further explained her history of ketamine which she said did work well for the first 6 months however soon after the affects started to wane and once she moved back with her mother and started working again, her depression consistently increased leading up to this suicide attempt. 10/18 tolerating ECT, no SI mood is improved some Dr. Gonzalez confirms that patient not tolerated numerous med trials. Reviewed list of failed medication trials which include the following: Prozac Zoloft Mirtazapine Effexor Vrylar [facility] Abilify Lamictal Rexulti Seroquel Zyprexa depakote I spent minutes with the patient and/or on the patient floor today, greater than?50% of which was spent counseling/coordinating care. Patient educated on: diagnosis and ECT Informed Consent: understands Reason for contiued inpatient stay Substantial Risk for: med/psych decompensation
[2021-10-18 17:00] VITALS: BP 114/68; PULSE 59; TEMP 36.3
[2021-10-18] MEDS: hydrOXYzine HCL 50 MG TABLET 100 MG PO (21:15)
[2021-10-18] MEDS: cloNIDine HCL 0.1 MG TABLET PO (21:16)
[2021-10-18] MEDS: Melatonin 3 MG TABLET 6 MG PO (23:29)
[2021-10-18] MEDS: traZODone HCL 25 MG HALFTAB PO (23:30)
[2021-10-19] VITALS (8 sets, daily range): BP systolic 94–170; BP diastolic 50–99; PULSE 62–73; RESP 12–22; TEMP 36.1–36.4; O2SAT 95–98
--- NOTE | 2021-10-19 06:55 | HO.ANESPROP2 ---
HPI - Anesthesia Eval Consult details Narrative: Declan Depressive disorder PMF Active Problems Active Problems: All Active Problems (Updated 10/18/21 @ 00:03 by Background Daemon) Gastritis (Acute) Chronic post-traumatic stress disorder (PTSD) (Acute) Major depressive disorder, recurrent severe without psychotic features (Acute) Intentional overdose (Acute) Depression (Acute) Suicidal ideation (Acute) Strain of right knee (Acute) Right knee pain (Acute) Strain of left knee (Acute) Past Medical History Medical History (Updated 10/18/21 @ 00:03 by Background Daemon) Chronic post-traumatic stress disorder (PTSD) Diabetes Hypothyroidism Low vitamin B12 level Major depressive disorder, recurrent severe without psychotic features Family History Family history of problems with anesthesia: No Surgical History History of Problems with Anesthesia: No Social History Social History Household Members: Unknown / Unable to assess Housing: Unknown / Unable to assess Do you presently have visiting nurse or other home services: No Patient Tobacco Use Status: Tobacco use Unknown Tobacco use type: Cigarette Cigarettes Per Day: 1 Smoked in Last 30 Days: Yes Patient Interested in Nicotine Replacement: No Patient Given Instructions on How to Stop Smoking: Yes Date Education Initiated: 10/10/21 Second Hand Smoke Exposure: Yes Use of substances other than those prescribed or required for medical reasons: No Currently Displaying Signs/Symptoms of Drug Intoxication Withdrawal: No Spiritual Healthcare Practices: Unknown, pt sleeping [facility] Healthcare Practices: Unknown, pt sleeping Cultural Healthcare Practices: Unknown, pt sleeping Advance Directives: No Advance Directives Information Provided: No Advance Directives on File: No Do you have thoughts of harming others: None Do you have a plan to hurt others: No Plan Recently lost weight without trying: No Eating poorly because of decreased appetite: No Nutrition Risks: No Nutritional Risk Patient : No : No service: No Current occupational status: unemployed Sexual orientation: Straight/Heterosexual Meds Allergies Allergy/AdvReac Type Severity Reaction Status Date / Time gabapentin Allergy Unknown Verified 11/27/20 13:51 Active Medications: Current Medications Acetaminophen (Acetaminophen 325 Mg Tablet) 650 mg PO Q6H PRN PRN Reason: Headache/Pain Mild Scale (1-3) Al Hydroxide/Mg Hydroxide (Magnesium Hydrox/Alum Hydrox 30 Ml Oral.Susp) 30 ml PO Q6H PRN PRN Reason: Heartburn/Nausea Clonidine HCl (Clonidine Hcl 0.1 Mg Tablet) 0.1 mg PO BEDTIME PRN; Protocol PRN Reason: nighttime anxiety/continued insomnia Last Admin: 10/18/21 21:16 Dose: 0.1 mg Cyanocobalamin (Cyanocobalamin (Vitamin B-12) 1,000 Mcg Tablet) 1,000 mcg PO DAILY [facility] Last Admin: 10/18/21 09:08 Dose: 1,000 mcg Fluoxetine HCl (Fluoxetine Hcl 20 Mg Capsule) 60 mg PO DAILY [facility] Last Admin: 10/18/21 09:08 Dose: 60 mg Hydroxyzine HCl (Hydroxyzine Hcl 25 Mg Tablet) 25 mg PO Q6H PRN PRN Reason: Anxiety Last Admin: 10/17/21 23:09 Dose: 25 mg Hydroxyzine HCl (Hydroxyzine Hcl 50 Mg Tablet) 100 mg PO BEDTIME PRN PRN Reason: Insomnia Last Admin: 10/18/21 21:15 Dose: 100 mg Ibuprofen (Ibuprofen 600 Mg Tablet) 600 mg PO Q8H PRN PRN Reason: Pain, Mild (Pain Scale 1-3) Last Admin: 10/17/21 19:45 Dose: 600 mg Levothyroxine Sodium (Levothyroxine Sodium 75 Mcg Tablet) 75 mcg PO DAILY@0600 [facility] Last Admin: 10/18/21 06:21 Dose: 75 mcg Lorazepam (Lorazepam 1 Mg Tablet) 1 mg PO BID PRN PRN Reason: Anxiety Last Admin: 10/17/21 20:08 Dose: 1 mg Magnesium Hydroxide (Milk Of Magnesia 30 Ml Oral.Susp) 30 ml PO DAILY PRN PRN Reason: Constipation Melatonin (Melatonin 3 Mg Tablet) 6 mg PO BEDTIME PRN PRN Reason: Insomnia Last Admin: 10/18/21 23:29 Dose: 6 mg Metformin HCl (Metformin Hcl 500 Mg Tablet) 500 mg PO BIDWM [facility] Last Admin: 10/18/21 17:15 Dose: 500 mg Pat Own Med( (Probiotic Gx 1 Tab)) 1 tab PO DAILY [facility] Last Admin: 10/18/21 09:10 Dose: 1 tab Omeprazole (Omeprazole 40 Mg Capsule.Dr) 40 mg PO BID@0630,1630 [facility] Last Admin: 10/18/21 17:16 Dose: 40 mg Ondansetron HCl (Ondansetron Odt 4 Mg Tab.Rapdis) 4 mg TRANSLINGU Q8H PRN PRN Reason: Nausea and Vomiting Last Admin: 10/13/21 10:07 Dose: 4 mg Senna (Sennosides 8.6 Mg Tablet) 17.2 mg PO DAILY PRN PRN Reason: Constipation Last Admin: 10/18/21 17:26 Dose: 17.2 mg Sucralfate (Sucralfate Oral Suspension 1 Gm/10 Ml Oral.Susp) 1 gm PO QIDACHS [facility] Last Admin: 10/18/21 21:16 Dose: 1 gm Topiramate (Topiramate 100 Mg Tablet) 100 mg PO DAILY [facility] Last Admin: 10/18/21 09:08 Dose: 100 mg Trazodone HCl (Trazodone Hcl 25 Mg Halftab) 25 mg PO BEDTIME PRN PRN Reason: continued insomnia Last Admin: 10/18/21 23:30 Dose: 25 mg Vitamin D (Cholecalciferol (Vitamin D3) 25 Mcg Tablet) 25 mcg PO DAILY [facility] Last Admin: 10/18/21 09:08 Dose: 25 mcg Home Medications Medication Instructions Recorded Confirmed Last Taken Type cholecalciferol (vitamin D3) 25 25 mcg PO DAILY 10/07/21 10/10/21 10/07/21 History mcg (1,000 unit) tablet cyanocobalamin (vitamin B-12) 1,000 mcg PO DAILY 10/07/21 10/10/21 10/07/21 History 1,000 mcg tablet fluoxetine 20 mg capsule 3 cap PO DAILY 10/07/21 10/10/21 10/07/21 History hydroxyzine HCl 50 mg tablet 1 tab PO BEDTIME PRN Insomnia 10/07/21 10/10/21 10/07/21 History levothyroxine 75 mcg tablet 1 tab PO QAM 10/07/21 10/10/21 10/07/21 History (Synthroid) lorazepam 2 mg tablet 4 mg PO BID PRN Anxiety 10/07/21 10/10/21 Unknown History metformin 500 mg tablet 1 tab PO BID 10/07/21 10/10/21 10/07/21 History oxycodone 5 mg capsule 1 - 2 cap PO TID PRN pain 10/07/21 10/10/21 10/07/21 History topiramate 100 mg tablet 100 mg PO DAILY 10/07/21 10/10/21 10/07/21 History Exam Exam Date and Time: October 19, 2021 0655 Height,Weight and Vital Signs: Height 5 ft 3 in Weight 75.4 kg Last Vital Signs Temp 97.4 F 10/19/21 06:46 Pulse 62 10/19/21 06:46 Resp 12 10/19/21 06:46 BP 113/81 10/19/21 06:46 Pulse Ox 97 10/19/21 06:46 O2 Del Method 10/19/21 06:46 O2 Flow Rate 2 10/17/21 08:07 Pertinent Lab Results Pertinent Lab Results: Laboratory Tests 10/11/21 10/11/21 10/12/21 08:06 10:23 17:33 Sodium 140 140 Potassium 3.9 4.1 Chloride 110 H 110 H Carbon Dioxide 22 21 L Anion Gap 12 13 BUN 8 L 9 Creatinine 0.77 0.77 Estim Creat Clear Calc 83.6 83.6 Estimated GFR > 60 > 60 Fasting Glucose 96 114 H Calcium 9.0 D 8.8 Total Bilirubin 0.3 0.4 AST 18 D 21 ALT 21 19 Alkaline Phosphatase 72 D 70 Total Protein 6.1 L 6.1 L Albumin 3.5 3.5 Triglycerides 254 181 Cholesterol 164 158 LDL Cholesterol, Calc 82 89 HDL Cholesterol 32 33 Urine Test NEGATIVE 10/18/21 08:34 Sodium Potassium Chloride Carbon Dioxide Anion Gap BUN Creatinine 0.79 Estim Creat Clear Calc 81.0 Estimated GFR > 60 Fasting Glucose Calcium Total Bilirubin AST ALT Alkaline Phosphatase Total Protein Albumin Triglycerides Cholesterol LDL Cholesterol, Calc HDL Cholesterol Urine Test Airway Mallampati Class: II TM Dist: >3cm Neck ROM: Full Loose/Missing/Broken Teeth: Yes ((Missing multiple teeth, history of trach, narrowing with scar tissue)) Heart: [id number] Lungs: cta b/l Assessment and Plan Assessment Anesthesia Assessment: Anesthesia Plan Discussed and Chart Reviewed Final Anesthetic Review Family History of Problems with Anesthesia: No History of Problems with Anesthesia: No NPO: Yes ASA Class: III Final Preanesthetic Review: No Changes in Pt Med Stat, Meds/Allgs Chart Reviewed, Consent Obtained/Reviewed and Anes Risks/Benef Reviewed Patient Risk: Intermediate Procedure Risk: Intermediate Assessment/Block/Sedation in SS: Assess/Block/Sedation-SS Anesthetic Plan Anesthetic Plan: GA and Agree w/ Assess. and Plan Disposition: Standard PACU
--- NOTE | 2021-10-19 06:56 | MHC.SHP ---
Pre-Procedural Eval Section A Date of Service: 10/19/21 The patient is an INPATIENT: Yes Changes since office visit: No Cold of Flu in the past 2 weeks, No New Medical Problems, No Changes in Medication and No Patient answered all questions The History & Physical has been completed within 30 days and I have reviewed it.: Yes Section B Chief Complaint: SI Allergies: Allergies Allergy/AdvReac Type Severity Reaction Status Date / Time gabapentin Allergy Unknown Verified 11/27/20 13:51 Plan I have reviewed the history and physical and performed a pertinent physical examination on my patient. No changes have occurred unless specified.
--- NOTE | 2021-10-19 08:23 | HO.ECTPROC ---
ECT Procedure Note Diagnosis/Treatment Date of Service: 10/19/21 Diagnosis: Major Depressive Disorder Previous ECT Date: 10/17/21 Current Treatment Number: 2 Treatment: Series Interval Clinical Notes: the patient reported no side effects with the previous ECT. her mood is sitll depressed but less anxious and dysphoric. ECT Settings Device: THYMATRON DGx Electrode Placement: Right Unilateral Program/Pulse Width: 0.50 Energy Percent: 100 Seizure Duration By EEG (in seconds): 36 Medications Administration General Anesthetic: Etomidate (14) Muscle Relaxant: Succinylcholine (80) Ancillary Medications Analgesics: Torodol - Pre ECT Anti-emetics: Zofran - Pre ECT Airway Management Airway Management: Bag Mask Ventilation Treatment Recommendations No Changes Recommended: No change Pt Tolerated Procedure w/o Issue: Yes
[2021-10-19] MEDS: metFORMIN HCl 500 MG TABLET PO ×2 (08:56→16:16)
[2021-10-19] MEDS: FLUoxetine HCl 20 MG CAPSULE 60 MG PO (08:56)
[2021-10-19] MEDS: Cholecalciferol (Vitamin D3) 25 MCG TABLET PO (08:56)
[2021-10-19] MEDS: Omeprazole 40 MG CAPSULE.DR PO ×2 (08:56→16:15)
[2021-10-19] MEDS: Topiramate 100 MG TABLET PO (08:56)
[2021-10-19] MEDS: Cyanocobalamin (Vitamin B-12) 1,000 MCG TABLET 1000 MCG PO (08:56)
[2021-10-19] MEDS: Levothyroxine Sodium 75 MCG TABLET PO (08:56)
[2021-10-19] MEDS: Sucralfate Oral Suspension 1 GM/10 ML ORAL.SUSP PO ×4 (08:57→21:12)
[2021-10-19] MEDS: Ibuprofen 600 MG TABLET PO (09:19)
[2021-10-19] MEDS: Butalb/Acetamin/Caff 50/325/40 TABLET 1 TAB PO (14:44)
--- NOTE | 2021-10-19 15:18 | P.PNPSI_ITS ---
Subjective Subjective Date of Service: 10/19/21 Reason For Visit: SI Interim History: Patient had ECT today and subsequently has headache. Patient struggling today after receiving e-mail from work, challenging her expertise; patient started catastrophizing and worrying about her future stability; no SI. Inking Machine Tender and patient did CBT exercise examining automatic thoughts and David triggers feelings which lead to certain behaviors. Patient appreciated the exercise and has plans to practice this technique over the weekend. Mental Status Exam Mental Status Exam Narrative: Pt is alert and oriented; behavior is cooperative, calm, friendly; dressed in casual attire with brushed hair, loosely pulled back and adequate hygiene; mood is described as nervous and affect congruent; eye contact appropriate; Speech is normal rate, volume and prosody and not pressured; no psychomotor agitat ion/retardation present; thought process is organized and goal directed; Thought content is treatment, getting ECT; also on past processing relationships w/ parents; otherwise pertinent to relevant topics and without any delusional content, paranoid ideations or grandiosity; currently denies any SI; no HI. There is no evidence of perceptual disturbance. ?Patients insight and judgment are fair. Diagnostics Vital Signs (24Hr): Vital Signs - 24 hr 10/18/21 17:00 10/19/21 06:46 10/19/21 07:04 Temperature 97.4 F 97.4 F 97.3 F Pulse Rate 59 62 67 Respiratory Rate 12 18 Blood Pressure 114/68 113/81 133/63 Pulse Oximetry 97 95 Oxygen Delivery Method Room Air Room Air Oxygen Flow Rate 10/19/21 08:06 10/19/21 08:11 10/19/21 08:21 Temperature 97.0 F Pulse Rate 67 73 69 Respiratory Rate 16 22 H 16 Blood Pressure 170/99 H 136/87 119/87 Pulse Oximetry 96 96 96 Oxygen Delivery Method Nasal Cannula Nasal Cannula Room Air Oxygen Flow Rate 2 10/19/21 08:36 10/19/21 08:54 Temperature 97.0 F 97.6 F Pulse Rate 71 66 Respiratory Rate 17 18 Blood Pressure 144/81 H 102/67 Pulse Oximetry 97 95 Oxygen Delivery Method Room Air Oxygen Flow Rate BMI result Body Mass Index 29.4 Labs Results: 10/18/21 08:34 Labs: Laboratory Results - last 48 hr 10/18/21 08:34 Creatinine 0.79 Estim Creat Clear Calc 81.0 Estimated GFR > 60 Medications Medications Current Medications Acetaminophen (Acetaminophen 325 Mg Tablet) 650 mg PO Q6H PRN PRN Reason: Headache/Pain Mild Scale (1-3) Al Hydroxide/Mg Hydroxide (Magnesium Hydrox/Alum Hydrox 30 Ml Oral.Susp) 30 ml PO Q6H PRN PRN Reason: Heartburn/Nausea Clonidine HCl (Clonidine Hcl 0.1 Mg Tablet) 0.1 mg PO BEDTIME PRN; Protocol PRN Reason: nighttime anxiety/continued insomnia Last Admin: 10/18/21 21:16 Dose: 0.1 mg Cyanocobalamin (Cyanocobalamin (Vitamin B-12) 1,000 Mcg Tablet) 1,000 mcg PO DAILY [facility] Last Admin: 10/19/21 08:56 Dose: 1,000 mcg Fluoxetine HCl (Fluoxetine Hcl 20 Mg Capsule) 60 mg PO DAILY [facility] Last Admin: 10/19/21 08:56 Dose: 60 mg Hydroxyzine HCl (Hydroxyzine Hcl 25 Mg Tablet) 25 mg PO Q6H PRN PRN Reason: Anxiety Last Admin: 10/17/21 23:09 Dose: 25 mg Hydroxyzine HCl (Hydroxyzine Hcl 50 Mg Tablet) 100 mg PO BEDTIME PRN PRN Reason: Insomnia Last Admin: 10/18/21 21:15 Dose: 100 mg Ibuprofen (Ibuprofen 600 Mg Tablet) 600 mg PO Q8H PRN PRN Reason: Pain, Mild (Pain Scale 1-3) Last Admin: 10/19/21 09:19 Dose: 600 mg Levothyroxine Sodium (Levothyroxine Sodium 75 Mcg Tablet) 75 mcg PO DAILY@0600 [facility] Last Admin: 10/19/21 08:56 Dose: 75 mcg Lorazepam (Lorazepam 1 Mg Tablet) 1 mg PO BID PRN PRN Reason: Anxiety Last Admin: 10/17/21 20:08 Dose: 1 mg Magnesium Hydroxide (Milk Of Magnesia 30 Ml Oral.Susp) 30 ml PO DAILY PRN PRN Reason: Constipation Melatonin (Melatonin 3 Mg Tablet) 6 mg PO BEDTIME PRN PRN Reason: Insomnia Last Admin: 10/18/21 23:29 Dose: 6 mg Metformin HCl (Metformin Hcl 500 Mg Tablet) 500 mg PO BIDWM [facility] Last Admin: 10/19/21 08:56 Dose: 500 mg Pat Own Med( (Probiotic Gx 1 Tab)) 1 tab PO DAILY [facility] Last Admin: 10/19/21 08:57 Dose: 1 tab Omeprazole (Omeprazole 40 Mg Capsule.Dr) 40 mg PO BID@0630,1630 [facility] Last Admin: 10/19/21 08:56 Dose: 40 mg Ondansetron HCl (Ondansetron Odt 4 Mg Tab.Rapdis) 4 mg TRANSLINGU Q8H PRN PRN Reason: Nausea and Vomiting Last Admin: 10/13/21 10:07 Dose: 4 mg Ondansetron HCl (Ondansetron Hcl 4 Mg/2 Ml Vial) 4 mg IVPUSH ONCE PRN PRN Reason: Nausea and Vomiting Oxycodone HCl (Oxycodone Hcl Immed Release 5 Mg Tablet) 10 mg PO ONCE PRN PRN Reason: Pain, Severe (Pain Scale 7-10) Senna (Sennosides 8.6 Mg Tablet) 17.2 mg PO DAILY PRN PRN Reason: Constipation Last Admin: 10/18/21 17:26 Dose: 17.2 mg Sucralfate (Sucralfate Oral Suspension 1 Gm/10 Ml Oral.Susp) 1 gm PO QIDACHS [facility] Last Admin: 10/19/21 13:29 Dose: 1 gm Topiramate (Topiramate 100 Mg Tablet) 100 mg PO DAILY [facility] Last Admin: 10/19/21 08:56 Dose: 100 mg Trazodone HCl (Trazodone Hcl 25 Mg Halftab) 25 mg PO BEDTIME PRN PRN Reason: continued insomnia Last Admin: 10/18/21 23:30 Dose: 25 mg Vitamin D (Cholecalciferol (Vitamin D3) 25 Mcg Tablet) 25 mcg PO DAILY [facility] Last Admin: 10/19/21 08:56 Dose: 25 mcg Allergies Allergies Allergy/AdvReac Type Severity Reaction Status Date / Time gabapentin Allergy Unknown Verified 11/27/20 13:51 Assessment & Plan Assessment & Plan (1) Chronic post-traumatic stress disorder (PTSD): Status: Acute Code(s): F43.12 - Post-traumatic stress disorder, chronic (2) Major depressive disorder, recurrent severe without psychotic features: Status: Acute Code(s): F33.2 - Major depressive disorder, recurrent severe without psychotic features (3) Hypothyroidism: Code(s): E03.9 - Hypothyroidism, unspecified (4) Gastritis: Status: Acute Code(s): K29.70 - Gastritis, unspecified, without bleeding Plan Patient is a 51-year-old female with history of refractory depression, PTSD and body dysmorphia, who presents for worsening depression and suicide attempt by overdose in the face of having missed ketamine dose and increasing psychosocial stressors. Formulation: Long history of refractory depression with many medication trials.? Patient has been on ketamine for the past year and a half which Was only effective initially and when patient had low psychosocial stressors present. ? Also only remote history of therapy.? Patient's history of emotional trauma seems to be a very significant contribution to her chronic depression of which therapy will likely be an essential component to treatment. History is still unclear as to whether she has Discrete manic episodes and reports at her baseline she talks fast, has high energy, has high libido and that these things do not increase in intensity; she denies ever having any bouts of insomnia; She says the only times she ever feels any kind of elation is when she has either lost weight or closed a good financial deal; patients father denies any manic type episodes separate from when she was abusing crack cocaine. Patient's presentation and report of her baseline does suggest possible chronic hypomania; parts data writer also spoke with patient's outpatient psychiatrist Dr. Gonzalez Who Reports concern for possible hypomanic episodes but agrees there is overlap with borderline traits and history of trauma; he agrees that ECT could possibly be helpful and that ultimately patient needs to engage in therapy shelter. He reports that she has had several serious suicide attempts and that her suicidality can come on quickly and impulsively. Plan: CV Q15min 1. Depression: ECT #1 on 10/17 ECT#2 on 10/19 ECT#3 PENDING 10/22 NPO after midnight DC Wellbutrin; causing sleep disturbance Trazodone 25mg PRN for insomnia (Sometimes higher doses give hangover effect) clonidine 0.1 mg q.h.s. for anxiety at bedtime cholecalciferol (vitamin D3) 25 mcg PO DAILY cyanocobalamin (vitamin B-12) 1000 mcg PO DAILY fluoxetine 20 mg capsule DAILY hydroxyzine HCl 50 mg tabletBEDTIME PRN levothyroxine 75 mcg tablet QAM lorazepam 2 mg tablet BID PRN Hold day before ECT metformin 500 mg tablet BID topiramate 100 mg tablet daily; Hold day before ECT 2.Gastritis: Ct scan with thickened gastric lining consistent with gastritis, improving with carafate Dr. Early?Billie: 1/ Cont with PPi e.g pantoprazole 40 mg daily is ok 2/ cont with carafate 1 g BID for 2 weeks 3/ If worsening sx can consider EGD for further assessment, avoid nsaids For Day to Day events and medical decision making... Hospital Course: -parts data writer reviewed risks/side effects of ECT; Dr. Mei did as well; patient consents and wants to proceed with ECT trial 10/14/21: Continue current plan. Pt finds she is better able to sleep with change from Wellbutrin XL to Wellbutrin. 10/15 Patient reports continued depression though she is hopeful that ECT will be effective. Patient reports that Wellbutrin is causing sleep disturbance and would like to increase trazodone. She also agrees to clonidine to help her stop thinking about various things when she is going to sleep. Patient reports history of nightmares, up to 3 per week often of being left alone and reminiscent of feelings of being neglected. Patient further explained her history of ketamine which she said did work well for the first 6 months however soon after the affects started to wane and once she moved back with her mother and started working again, her depression consistently increased leading up to this suicide attempt. 10/18 tolerating ECT, no SI mood is improved some Dr. Gonzalez confirms that patient not tolerated numerous med trials. Reviewed list of failed medication trials which include the following: Prozac Zoloft Mirtazapine Effexor Vrylar Latuda [place] Abilify Lamictal Rexulti Seroquel Zyprexa depakote I spent minutes with the patient and/or on the patient floor today, greater than?50% of which was spent counseling/coordinating care. Reason for contiued inpatient stay Substantial Risk for: stable for discharge
[2021-10-19] MEDS: hydrOXYzine HCL 50 MG TABLET 100 MG PO (21:11)
[2021-10-19] MEDS: LORazepam 1 MG TABLET PO (21:11)
[2021-10-19] MEDS: Melatonin 3 MG TABLET 6 MG PO (23:02)
[2021-10-19] MEDS: traZODone HCL 25 MG HALFTAB PO (23:03)
[2021-10-19] MEDS: cloNIDine HCL 0.1 MG TABLET PO (23:03)
[2021-10-20 06:00] VITALS: BP 126/86; PULSE 72; RESP 18; TEMP 36.4; O2SAT 97
[2021-10-20] MEDS: Levothyroxine Sodium 75 MCG TABLET PO (06:17)
[2021-10-20] MEDS: Omeprazole 40 MG CAPSULE.DR PO ×2 (06:17→17:03)
[2021-10-20] MEDS: FLUoxetine HCl 20 MG CAPSULE 60 MG PO (09:33)
[2021-10-20] MEDS: Topiramate 100 MG TABLET PO (09:33)
[2021-10-20] MEDS: Sucralfate Oral Suspension 1 GM/10 ML ORAL.SUSP PO ×4 (09:33→20:12)
[2021-10-20] MEDS: metFORMIN HCl 500 MG TABLET PO ×2 (09:33→17:04)
[2021-10-20] MEDS: Cyanocobalamin (Vitamin B-12) 1,000 MCG TABLET 1000 MCG PO (09:33)
[2021-10-20] MEDS: Cholecalciferol (Vitamin D3) 25 MCG TABLET PO (09:33)
[2021-10-20] MEDS: Ondansetron ODT 4 MG TAB.RAPDIS TRANSLINGU (14:38)
[2021-10-20 18:00] VITALS: BP 127/71; PULSE 70; RESP 16; TEMP 36.6; O2SAT 95
--- NOTE | 2021-10-20 19:05 | P.PNPSI_ITS ---
Subjective Subjective Date of Service: 10/20/21 Reason For Visit: SI Interim History: Patient seen and discussed. She is doing well. She reports that she is not sure that ECT is helping and realizes that she only had 2 treatments so it's still early. She is pleasant. She is seen interacting in the milieu. She denies any SI. She has no psychosis. She is tolerating her medications. Sleep and appetite are good. Mental Status Exam Mental Status Exam Narrative: Pt is alert and oriented; behavior is cooperative, calm, friendly; dressed in casual attire with brushed hair, loosely pulled back and adequate hygiene; mood is described as nervous and affect congruent; eye contact appropriate; Speech is normal rate, volume and prosody and not pressured; no psychomotor agitation/retardation present; thought process is organized and goal directed; Thought content is treatment, getting ECT; also on past processing relationships w/ parents; otherwise pertinent to relevant topics and without any delusional content, paranoid ideations or grandiosity; currently denies any SI; no HI. Ther e is no evidence of perceptual disturbance. ?Patients insight and judgment are fair. Patient Appearance: Appropriate Patient Orientation: Person, Place, Time and Situation Level of Consciousness: Alert Patient Behavior: Appropriate, Talkative, Cooperative and Good Eye Contact Mood Description: Anxious and Apprehensive Affect Description: Apprehensive Patient Cognition Impaired: No Ability to Follow Directions: Good Speech Pattern: Spontaneous Speech Memory Description: Intact Diagnostics Vital Signs (24Hr): Vital Signs - 24 hr 10/20/21 06:00 10/20/21 18:00 Temperature 97.6 F 97.9 F Pulse Rate 72 70 Respiratory Rate 18 16 Blood Pressure 126/86 127/71 Pulse Oximetry 97 95 Oxygen Delivery Method Room Air BMI result Body Mass Index 29.4 Labs Results: 10/18/21 08:34 Medications Medications Current Medications Acetaminophen (Acetaminophen 325 Mg Tablet) 650 mg PO Q6H PRN PRN Reason: Headache/Pain Mild Scale (1-3) Al Hydroxide/Mg Hydroxide (Magnesium Hydrox/Alum Hydrox 30 Ml Oral.Susp) 30 ml PO Q6H PRN PRN Reason: Heartburn/Nausea Clonidine HCl (Clonidine Hcl 0.1 Mg Tablet) 0.1 mg PO BEDTIME PRN; Protocol PRN Reason: nighttime anxiety/continued insomnia Last Admin: 10/19/21 23:03 Dose: 0.1 mg Cyanocobalamin (Cyanocobalamin (Vitamin B-12) 1,000 Mcg Tablet) 1,000 mcg PO DAILY [facility] Last Admin: 10/20/21 09:33 Dose: 1,000 mcg Fluoxetine HCl (Fluoxetine Hcl 20 Mg Capsule) 60 mg PO DAILY [facility] Last Admin: 10/20/21 09:33 Dose: 60 mg Hydroxyzine HCl (Hydroxyzine Hcl 25 Mg Tablet) 25 mg PO Q6H PRN PRN Reason: Anxiety Last Admin: 10/17/21 23:09 Dose: 25 mg Hydroxyzine HCl (Hydroxyzine Hcl 50 Mg Tablet) 100 mg PO BEDTIME PRN PRN Reason: Insomnia Last Admin: 10/19/21 21:11 Dose: 100 mg Ibuprofen (Ibuprofen 600 Mg Tablet) 600 mg PO Q8H PRN PRN Reason: Pain, Mild (Pain Scale 1-3) Last Admin: 10/19/21 09:19 Dose: 600 mg Levothyroxine Sodium (Levothyroxine Sodium 75 Mcg Tablet) 75 mcg PO DAILY@0600 [facility] Last Admin: 10/20/21 06:17 Dose: 75 mcg Lorazepam (Lorazepam 1 Mg Tablet) 1 mg PO BID PRN PRN Reason: Anxiety Last Admin: 10/19/21 21:11 Dose: 1 mg Magnesium Hydroxide (Milk Of Magnesia 30 Ml Oral.Susp) 30 ml PO DAILY PRN PRN Reason: Constipation Melatonin (Melatonin 3 Mg Tablet) 6 mg PO BEDTIME PRN PRN Reason: Insomnia Last Admin: 10/19/21 23:02 Dose: 6 mg Metformin HCl (Metformin Hcl 500 Mg Tablet) 500 mg PO BIDWM [facility] Last Admin: 10/20/21 17:04 Dose: 500 mg Pat Own Med( (Probiotic Gx 1 Tab)) 1 tab PO DAILY [facility] Last Admin: 10/20/21 09:33 Dose: 1 tab Omeprazole (Omeprazole 40 Mg Capsule.Dr) 40 mg PO BID@0630,1630 [facility] Last Admin: 10/20/21 17:03 Dose: 40 mg Ondansetron HCl (Ondansetron Odt 4 Mg Tab.Rapdis) 4 mg TRANSLINGU Q8H PRN PRN Reason: Nausea and Vomiting Last Admin: 10/20/21 14:38 Dose: 4 mg Ondansetron HCl (Ondansetron Hcl 4 Mg/2 Ml Vial) 4 mg IVPUSH ONCE PRN PRN Reason: Nausea and Vomiting Oxycodone HCl (Oxycodone Hcl Immed Release 5 Mg Tablet) 10 mg PO ONCE PRN PRN Reason: Pain, Severe (Pain Scale 7-10) Senna (Sennosides 8.6 Mg Tablet) 17.2 mg PO DAILY PRN PRN Reason: Constipation Last Admin: 10/18/21 17:26 Dose: 17.2 mg Sucralfate (Sucralfate Oral Suspension 1 Gm/10 Ml Oral.Susp) 1 gm PO QIDACHS [facility] Last Admin: 10/20/21 17:04 Dose: 1 gm Topiramate (Topiramate 100 Mg Tablet) 100 mg PO DAILY [facility] Last Admin: 10/20/21 09:33 Dose: 100 mg Trazodone HCl (Trazodone Hcl 25 Mg Halftab) 25 mg PO BEDTIME PRN PRN Reason: continued insomnia Last Admin: 10/19/21 23:03 Dose: 25 mg Vitamin D (Cholecalciferol (Vitamin D3) 25 Mcg Tablet) 25 mcg PO DAILY [facility] Last Admin: 10/20/21 09:33 Dose: 25 mcg Allergies Allergies Allergy/AdvReac Type Severity Reaction Status Date / Time gabapentin Allergy Unknown Verified 11/27/20 13:51 Assessment & Plan Assessment & Plan (1) Chronic post-traumatic stress disorder (PTSD): Status: Acute Code(s): F43.12 - Post-traumatic stress disorder, chronic (2) Major depressive disorder, recurrent severe without psychotic features: Status: Acute Code(s): F33.2 - Major depressive disorder, recurrent severe without psychotic features (3) Hypothyroidism: Code(s): E03.9 - Hypothyroidism, unspecified (4) Gastritis: Status: Acute Code(s): K29.70 - Gastritis, unspecified, without bleeding Plan Patient is a 51-year-old female with history of refractory depression, PTSD and body dysmorphia, who presents for worsening depression and suicide attempt by overdose in the face of having missed ketamine dose and increasing psychosocial stressors. Formulation: Long history of refractory depression with many medication trials.? Patient has been on ketamine for the past year and a half which Was only effective initially and when patient had low psychosocial stressors present. ? Also only remote history of therapy.? Patient's history of emotional trauma seems to be a very significant contribution to her chronic depression of which therapy will likely be an essential component to treatment. History is still unclear as to whether she has Discrete manic episodes and reports at her baseline she talks fast, has high energy, has high libido and that these things do not increase in intensity; she denies ever having any bouts of insomnia; She says the only times she ever feels any kind of elation is when she has either lost weight or closed a good financial deal; patients father denies any manic type episodes separate from when she was abusing crack cocaine. Patient's presentation and report of her baseline does suggest possible chronic hypomania; functional tester typewriters also spoke with patient's outpatient psychiatrist Dr. Gonzalez Who Reports concern for possible hypomanic episodes but agrees there is overlap with borderline traits and history of trauma; he agrees that ECT could possibly be helpful and that ultimately patient needs to engage in therapy [facility]. He reports that she has had several serious suicide attempts and that her suicidality can come on quickly and impulsively. Plan: CV Q15min 1. Depression: ECT #1 on 10/17 ECT#2 on 10/19 ECT#3 PENDING 10/22 NPO after midnight DC Wellbutrin; causing sleep disturbance Trazodone 25mg PRN for insomnia (Sometimes higher doses give hangover effect) clonidine 0.1 mg q.h.s. for anxiety at bedtime cholecalciferol (vitamin D3) 25 mcg PO DAILY cyanocobalamin (vitamin B-12) 1000 mcg PO DAILY fluoxetine 20 mg capsule DAILY hydroxyzine HCl 50 mg tabletBEDTIME PRN levothyroxine 75 mcg tablet QAM lorazepam 2 mg tablet BID PRN Hold day before ECT metformin 500 mg tablet BID topiramate 100 mg tablet daily; Hold day before ECT 2.Gastritis: Ct scan with thickened gastric lining consistent with gastritis, improving with carafate Dr. Early?Wise: 1/ Cont with PPi e.g pantoprazole 40 mg daily is ok 2/ cont with carafate 1 g BID for 2 weeks 3/ If worsening sx can consider EGD for further assessment, avoid nsaids For Day to Day events and medical decision making... Hospital Course: -functional tester typewriters reviewed risks/side effects of ECT; Dr. Mei did as well; patient consents and wants to proceed with ECT trial 10/14/21: Continue current plan. Pt finds she is better able to sleep with change from Wellbutrin XL to Wellbutrin. 10/15 Patient reports continued depression though she is hopeful that ECT will be effective. Patient reports that Wellbutrin is causing sleep disturbance and would like to increase trazodone. She also agrees to clonidine to help her stop thinking about various things when she is going to sleep. Patient reports history of nightmares, up to 3 per week often of being left alone and r eminiscent of feelings of being neglected. Patient further explained her history of ketamine which she said did work well for the first 6 months however soon after the affects started to wane and once she moved back with her mother and started working again, her depression consistently increased leading up to this suicide attempt. 10/18 tolerating ECT, no SI mood is improved some Dr. Gonzalez confirms that patient not tolerated numerous med trials. Reviewed list of failed medication trials which include the following: Prozac Zoloft Mirtazapine Effexor Vrylar Latuda [place] Abilify Lamictal Rexulti Seroquel Zyprexa depakote I spent minutes with the patient and/or on the patient floor today, greater than?50% of which was spent counseling/coordinating care. Reason for contiued inpatient stay Substantial Risk for: harm to self
[2021-10-20] MEDS: hydrOXYzine HCL 50 MG TABLET 100 MG PO (20:11)
[2021-10-20] MEDS: cloNIDine HCL 0.1 MG TABLET PO (20:12)
[2021-10-20] MEDS: hydrOXYzine HCL 25 MG TABLET PO (20:12)
[2021-10-20] MEDS: LORazepam 1 MG TABLET PO (20:14)
[2021-10-20] MEDS: Melatonin 3 MG TABLET 6 MG PO (21:47)
[2021-10-20] MEDS: traZODone HCL 25 MG HALFTAB PO (21:48)
[2021-10-21 06:00] VITALS: BP 128/84; PULSE 67; RESP 18; TEMP 36.4; O2SAT 96
[2021-10-21] MEDS: Cholecalciferol (Vitamin D3) 25 MCG TABLET PO (08:57)
[2021-10-21] MEDS: metFORMIN HCl 500 MG TABLET PO ×2 (08:57→17:22)
[2021-10-21] MEDS: Levothyroxine Sodium 75 MCG TABLET PO (08:57)
[2021-10-21] MEDS: Omeprazole 40 MG CAPSULE.DR PO ×2 (08:57→17:22)
[2021-10-21] MEDS: Sucralfate Oral Suspension 1 GM/10 ML ORAL.SUSP PO ×4 (08:57→21:13)
[2021-10-21] MEDS: LORazepam 1 MG TABLET PO (08:57)
[2021-10-21] MEDS: Topiramate 100 MG TABLET PO (08:57)
[2021-10-21] MEDS: Cyanocobalamin (Vitamin B-12) 1,000 MCG TABLET 1000 MCG PO (08:58)
[2021-10-21] MEDS: FLUoxetine HCl 20 MG CAPSULE 60 MG PO (08:58)
--- NOTE | 2021-10-21 10:54 | HO.PSYCHPN ---
Subjective Subjective Date of Service: 10/21/21 Reason For Visit: SI Interim History: Patient seen and discussed. She reports feeling groggy the last 2 days after receiving Trazodone for sleep. She reports her mind races at night. We discussed trial of low dose Seroquel instead. She agrees. She is saying her mood not great due to above. RN reported patient was tearful earlier as well. She is pleasant. She is seen interacting in the milieu. She denies any SI. She has no psychosis. Appetite are good. Mental Status Exam Mental Status Exam Narrative: Pt is alert and oriented; behavior is cooperative, calm, friendly; dressed in casual attire with brushed hair, loosely pulled back and adequate hygiene; mood is described as nervous and affect congruent; eye contact appropriate; Speech is normal rate, volume and prosody and not pressured; no psychomotor agitation/retardation present; thought process is organized and goal directed; Thought content is treatment, getting ECT; also on past processing relationships w/ parents; otherwise pertinent to relevant topics and without any delusional content, paranoid ideations or grandiosity; currently denies any SI; no HI. There is no evidence of perceptual disturbance. ?Patients insight and judgment are fair. Patient Appearance: Appropriate Patient Orientation: Person, Place, Time and Situation Level of Consciousness: Alert Patient Behavior: Appropriate, Talkative, Cooperative and Good Eye Contact Mood Description: Anxious and Apprehensive Affect Description: Apprehensive Patient Cognition Impaired: No Ability to Follow Directions: Good Speech Pattern: Spontaneous Speech Memory Description: Intact Diagnostics Vital Signs (24Hr): Vital Signs - 24 hr 10/20/21 18:00 10/21/21 06:00 Temperature 97.9 F 97.6 F Pulse Rate 70 67 Respiratory Rate 16 18 Blood Pressure 127/71 128/84 Pulse Oximetry 95 96 Oxygen Delivery Method Room Air BMI result Body Mass Index 29.4 Labs Results: 10/18/21 08:34 Medications Medications Current Medications Acetaminophen (Acetaminophen 325 Mg Tablet) 650 mg PO Q6H PRN PRN Reason: Headache/Pain Mild Scale (1-3) Al Hydroxide/Mg Hydroxide (Magnesium Hydrox/Alum Hydrox 30 Ml Oral.Susp) 30 ml PO Q6H PRN PRN Reason: Heartburn/Nausea Clonidine HCl (Clonidine Hcl 0.1 Mg Tablet) 0.1 mg PO BEDTIME PRN; Protocol PRN Reason: nighttime anxiety/continued insomnia Last Admin: 10/20/21 20:12 Dose: 0.1 mg Cyanocobalamin (Cyanocobalamin (Vitamin B-12) 1,000 Mcg Tablet) 1,000 mcg PO DAILY [facility] Last Admin: 10/21/21 08:58 Dose: 1,000 mcg Fluoxetine HCl (Fluoxetine Hcl 20 Mg Capsule) 60 mg PO DAILY [facility] Last Admin: 10/21/21 08:58 Dose: 60 mg Hydroxyzine HCl (Hydroxyzine Hcl 25 Mg Tablet) 25 mg PO Q6H PRN PRN Reason: Anxiety Last Admin: 10/20/21 20:12 Dose: 25 mg Hydroxyzine HCl (Hydroxyzine Hcl 50 Mg Tablet) 100 mg PO BEDTIME PRN PRN Reason: Insomnia Last Admin: 10/20/21 20:11 Dose: 100 mg Ibuprofen (Ibuprofen 600 Mg Tablet) 600 mg PO Q8H PRN PRN Reason: Pain, Mild (Pain Scale 1-3) Last Admin: 10/19/21 09:19 Dose: 600 mg Levothyroxine Sodium (Levothyroxine Sodium 75 Mcg Tablet) 75 mcg PO DAILY@0600 [facility] Last Admin: 10/21/21 08:57 Dose: 75 mcg Lorazepam (Lorazepam 1 Mg Tablet) 1 mg PO BID PRN PRN Reason: Anxiety Last Admin: 10/21/21 08:57 Dose: 1 mg Magnesium Hydroxide (Milk Of Magnesia 30 Ml Oral.Susp) 30 ml PO DAILY PRN PRN Reason: Constipation Melatonin (Melatonin 3 Mg Tablet) 6 mg PO BEDTIME PRN PRN Reason: Insomnia Last Admin: 10/20/21 21:47 Dose: 6 mg Metformin HCl (Metformin Hcl 500 Mg Tablet) 500 mg PO BIDWM [facility] Last Admin: 10/21/21 08:57 Dose: 500 mg Pat Own Med( (Probiotic Gx 1 Tab)) 1 tab PO DAILY [facility] Last Admin: 10/21/21 08:58 Dose: 1 tab Omeprazole (Omeprazole 40 Mg Capsule.Dr) 40 mg PO BID@0630,1630 [facility] Last Admin: 10/21/21 08:57 Dose: 40 mg Ondansetron HCl (Ondansetron Odt 4 Mg Tab.Rapdis) 4 mg TRANSLINGU Q8H PRN PRN Reason: Nausea and Vomiting Last Admin: 10/20/21 14:38 Dose: 4 mg Ondansetron HCl (Ondansetron Hcl 4 Mg/2 Ml Vial) 4 mg IVPUSH ONCE PRN PRN Reason: Nausea and Vomiting Oxycodone HCl (Oxycodone Hcl Immed Release 5 Mg Tablet) 10 mg PO ONCE PRN PRN Reason: Pain, Severe (Pain Scale 7-10) Senna (Sennosides 8.6 Mg Tablet) 17.2 mg PO DAILY PRN PRN Reason: Constipation Last Admin: 10/18/21 17:26 Dose: 17.2 mg Sucralfate (Sucralfate Oral Suspension 1 Gm/10 Ml Oral.Susp) 1 gm PO QIDACHS [facility] Last Admin: 10/21/21 08:57 Dose: 1 gm Topiramate (Topiramate 100 Mg Tablet) 100 mg PO DAILY [facility] Last Admin: 10/21/21 08:57 Dose: 100 mg Vitamin D (Cholecalciferol (Vitamin D3) 25 Mcg Tablet) 25 mcg PO DAILY [facility] Last Admin: 10/21/21 08:57 Dose: 25 mcg Allergies Allergies Allergy/AdvReac Type Severity Reaction Status Date / Time gabapentin Allergy Unknown Verified 11/27/20 13:51 Assessment & Plan Assessment & Plan (1) Chronic post-traumatic stress disorder (PTSD): Status: Acute Code(s): F43.12 - Post-traumatic stress disorder, chronic (2) Major depressive disorder, recurrent severe without psychotic features: Status: Acute Code(s): F33.2 - Major depressive disorder, recurrent severe without psychotic features (3) Hypothyroidism: Code(s): E03.9 - Hypothyroidism, unspecified (4) Gastritis: Status: Acute Code(s): K29.70 - Gastritis, unspecified, without bleeding Plan Patient is a 51-year-old female with history of refractory depression, PTSD and body dysmorphia, who presents for worsening depression and suicide attempt by overdose in the face of having missed ketamine dose and increasing psychosocial stressors. Formulation: Long history of refractory depression with many medication trials.? Patient has been on ketamine for the past year and a half which Was only effective initially and when patient had low psychosocial stressors present. ? Also only remote history of therapy.? Patient's history of emotional trauma seems to be a very significant contribution to her chronic depression of which therapy will likely be an essential component to treatment. History is still unclear as to whether she has Discrete manic episodes and reports at her baseline she talks fast, has high energy, has high libido and that these things do not increase in intensity; she denies ever having any bouts of insomnia; She says the only times she ever feels any kind of elation is when she has either lost weight or closed a good financial deal; patients father denies any manic type episodes separate from when she was abusing crack cocaine. Patient's presentation and report of her baseline does suggest possible chronic hypomania; commercial insurance underwriter also spoke with patient's outpatient psychiatrist Dr. Gonzalez Who Reports concern for possible hypomanic episodes but agrees there is overlap with borderline traits and history of trauma; he agrees that ECT could possibly be helpful and that ultimately patient needs to engage in therapy prison. He reports that she has had several serious suicide attempts and that her suicidality can come on quickly and impulsively. Plan: CV Q15min 1. Depression: ECT #1 on 10/17 ECT#2 on 10/19 ECT#3 PENDING 10/22 NPO after midnight DC Wellbutrin; causing sleep disturbance Trazodone 25mg PRN for insomnia (Sometimes higher doses give hangover effect) clonidine 0.1 mg q.h.s. for anxiety at bedtime cholecalciferol (vitamin D3) 25 mcg PO DAILY cyanocobalamin (vitamin B-12) 1000 mcg PO DAILY fluoxetine 20 mg capsule DAILY hydroxyzine HCl 50 mg tabletBEDTIME PRN levothyroxine 75 mcg tablet QAM lorazepam 2 mg tablet BID PRN Hold day before ECT metformin 500 mg tablet BID topiramate 100 mg tablet daily; Hold day before ECT 2.Gastritis: Ct scan with thickened gastric lining consistent with gastritis, improving with carafate Dr. Early?Wise: 1/ Cont with PPi e.g pantoprazole 40 mg daily is ok 2/ cont with carafate 1 g BID for 2 weeks 3/ If worsening sx can consider EGD for further assessment, avoid nsaids For Day to Day events and medical decision making... Hospital Course: -commercial insurance underwriter reviewed risks/side effects of ECT; Dr. Mei did as well; patient consents and wants to proceed with ECT trial 10/14/21: Continue current plan. Pt finds she is better able to sleep with change from Wellbutrin XL to Wellbutrin. 6/6 Patient reports continued depression though she is hopeful that ECT will be effective. Patient reports that Wellbutrin is causing sleep disturbance and would like to increase trazodone. She also agrees to clonidine to help her stop thinking about various things when she is going to sleep. Patient reports history of nightmares, up to 3 per week often of being left alone and reminiscent of feelings of being neglected. Patient further explained her history of ketamine which she said did work well for the first 6 months however soon after the affects started to wane and once she moved back with her mother and started working again, her depression consistently increased leading up to this suicide attempt. 10/18 tolerating ECT, no SI mood is improved some 10/20 DC Trazodone. Trial low dose Seroquel [address] Gonzalez confirms that patient not tolerated numerous med trials. Reviewed list of failed medication trials which include the following: Prozac Zoloft Mirtazapine Effexor Vrylar Latuda Helen Abilify Lamictal Rexulti Seroquel Zyprexa depakote I spent minutes with the patient and/or on the patient floor today, greater than?50% of which was spent counseling/coordinating care. Reason for contiued inpatient stay Substantial Risk for: harm to self and rapid decompensation
[2021-10-21] MEDS: QUEtiapine Fumarate 25 MG TABLET PO (21:14)
[2021-10-21 21:15] VITALS: BP 108/74; PULSE 70; TEMP 36.4
[2021-10-21] MEDS: Melatonin 3 MG TABLET 6 MG PO (21:17)
[2021-10-21] MEDS: cloNIDine HCL 0.1 MG TABLET PO (21:18)
[2021-10-21] MEDS: hydrOXYzine HCL 50 MG TABLET 100 MG PO (21:21)
[2021-10-22] VITALS (14 sets, daily range): BP systolic 88–134; BP diastolic 51–90; PULSE 57–69; RESP 14–20; TEMP 36.2–36.9; O2SAT 93–98
--- NOTE | 2021-10-22 06:55 | P.CONAN_ITS ---
[facility] Active Problems Active Problems: All Active Problems (Updated 10/18/21 @ 00:03 by Background Daemon) Gastritis (Acute) Chronic post-traumatic stress disorder (PTSD) (Acute) Major depressive disorder, recurrent severe without psychotic features (Acute) Intentional overdose (Acute) Depression (Acute) Suicidal ideation (Acute) Strain of right knee (Acute) Right knee pain (Acute) Strain of left knee (Acute) Past Medical History Medical History (Updated 10/18/21 @ 00:03 by Background Daemon) Chronic post-traumatic stress disorder (PTSD) Diabetes Hypothyroidism Low vitamin B12 level Major depressive disorder, recurrent severe without psychotic features Family History Family history of problems with anesthesia: No Surgical History History of Problems with Anesthesia: No Social History Social History Household Members: Unknown / Unable to assess Housing: Unknown / Unable to assess Do you presently have visiting nurse or other home services: No Patient Tobacco Use Status: Tobacco use Unknown Tobacco use type: Cigarette Cigarettes Per Day: 1 Second Hand Smoke Exposure: Yes service: No Current occupational status: unemployed Sexual orientation: Straight/Heterosexual Meds Allergies Allergy/AdvReac Type Severity Reaction Status Date / Time gabapentin Allergy Unknown Verified 11/27/20 13:51 Active Medications: Current Medications Acetaminophen (Acetaminophen 325 Mg Tablet) 650 mg PO Q6H PRN PRN Reason: Headache/Pain Mild Scale (1-3) Al Hydroxide/Mg Hydroxide (Magnesium Hydrox/Alum Hydrox 30 Ml Oral.Susp) 30 ml PO Q6H PRN PRN Reason: Heartburn/Nausea Clonidine HCl (Clonidine Hcl 0.1 Mg Tablet) 0.1 mg PO BEDTIME PRN; Protocol PRN Reason: nighttime anxiety/continued insomnia Last Admin: 10/21/21 21:18 Dose: 0.1 mg Cyanocobalamin (Cyanocobalamin (Vitamin B-12) 1,000 Mcg Tablet) 1,000 mcg PO DAILY [facility] Last Admin: 10/21/21 08:58 Dose: 1,000 mcg Fluoxetine HCl (Fluoxetine Hcl 20 Mg Capsule) 60 mg PO DAILY [facility] Last Admin: 10/21/21 08:58 Dose: 60 mg Hydroxyzine HCl (Hydroxyzine Hcl 25 Mg Tablet) 25 mg PO Q6H PRN PRN Reason: Anxiety Last Admin: 10/20/21 20:12 Dose: 25 mg Hydroxyzine HCl (Hydroxyzine Hcl 50 Mg Tablet) 100 mg PO BEDTIME PRN PRN Reason: Insomnia Last Admin: 10/21/21 21:21 Dose: 100 mg Lactated Ringer's (Lr) 1,000 mls @ 50 mls/hr IVCONT .Q20H [facility] Ibuprofen (Ibuprofen 600 Mg Tablet) 600 mg PO Q8H PRN PRN Reason: Pain, Mild (Pain Scale 1-3) Last Admin: 10/19/21 09:19 Dose: 600 mg Levothyroxine Sodium (Levothyroxine Sodium 75 Mcg Tablet) 75 mcg PO DAILY@0600 [facility] Last Admin: 10/21/21 08:57 Dose: 75 mcg Lorazepam (Lorazepam 1 Mg Tablet) 1 mg PO BID PRN PRN Reason: Anxiety Last Admin: 10/21/21 08:57 Dose: 1 mg Magnesium Hydroxide (Milk Of Magnesia 30 Ml Oral.Susp) 30 ml PO DAILY PRN PRN Reason: Constipation Melatonin (Melatonin 3 Mg Tablet) 6 mg PO BEDTIME PRN PRN Reason: Insomnia Last Admin: 10/21/21 21:17 Dose: 6 mg Metformin HCl (Metformin Hcl 500 Mg Tablet) 500 mg PO BIDWM [facility] Last Admin: 10/21/21 17:22 Dose: 500 mg Pat Own Med( (Probiotic Gx 1 Tab)) 1 tab PO DAILY [facility] Last Admin: 10/21/21 08:58 Dose: 1 tab Omeprazole (Omeprazole 40 Mg Capsule.Dr) 40 mg PO BID@0630,1630 [facility] Last Admin: 10/21/21 17:22 Dose: 40 mg Ondansetron HCl (Ondansetron Odt 4 Mg Tab.Rapdis) 4 mg TRANSLINGU Q8H PRN PRN Reason: Nausea and Vomiting Last Admin: 10/20/21 14:38 Dose: 4 mg Ondansetron HCl (Ondansetron Hcl 4 Mg/2 Ml Vial) 4 mg IVPUSH ONCE PRN PRN Reason: Nausea and Vomiting Oxycodone HCl (Oxycodone Hcl Immed Release 5 Mg Tablet) 10 mg PO ONCE PRN PRN Reason: Pain, Severe (Pain Scale 7-10) Quetiapine Fumarate (Quetiapine Fumarate 25 Mg Tablet) 25 mg PO BEDTIME [facility] Last Admin: 10/21/21 21:14 Dose: 25 mg Senna (Sennosides 8.6 Mg Tablet) 17.2 mg PO DAILY PRN PRN Reason: Constipation Last Admin: 10/18/21 17:26 Dose: 17.2 mg Sucralfate (Sucralfate Oral Suspension 1 Gm/10 Ml Oral.Susp) 1 gm PO QIDACHS [facility] Last Admin: 10/21/21 21:13 Dose: 1 gm Topiramate (Topiramate 100 Mg Tablet) 100 mg PO DAILY [facility] Last Admin: 10/21/21 08:57 Dose: 100 mg Vitamin D (Cholecalciferol (Vitamin D3) 25 Mcg Tablet) 25 mcg PO DAILY [facility] Last Admin: 10/21/21 08:57 Dose: 25 mcg Home Medications Medication Instructions Recorded Confirmed Last Taken Type cholecalciferol (vitamin D3) 25 25 mcg PO DAILY 10/07/21 10/10/21 10/07/21 History mcg (1,000 unit) tablet cyanocobalamin (vitamin B-12) 1,000 mcg PO DAILY 10/07/21 10/10/21 10/07/21 History 1,000 mcg tablet fluoxetine 20 mg capsule 3 cap PO DAILY 10/07/21 10/10/21 10/07/21 History hydroxyzine HCl 50 mg tablet 1 tab PO BEDTIME PRN Insomnia 10/07/21 10/10/21 10/07/21 History levothyroxine 75 mcg tablet 1 tab PO QAM 10/07/21 10/10/21 10/07/21 History (Synthroid) lorazepam 2 mg tablet 4 mg PO BID PRN Anxiety 10/07/21 10/10/21 Unknown History metformin 500 mg tablet 1 tab PO BID 10/07/21 10/10/21 10/07/21 History oxycodone 5 mg capsule 1 - 2 cap PO TID PRN pain 10/07/21 10/10/21 10/07/21 History topiramate 100 mg tablet 100 mg PO DAILY 10/07/21 10/10/21 10/07/21 History Exam Exam Date and Time: October 22, 2021 0655 Height,Weight and Vital Signs: Height 5 ft 3 in Weight 75.4 kg Last Vital Signs Temp 97.6 F 10/22/21 06:16 Pulse 66 10/22/21 06:16 Resp 18 10/22/21 06:16 BP 103/69 10/22/21 06:16 Pulse Ox 96 10/22/21 06:16 O2 Del Method 10/22/21 06:00 O2 Flow Rate 2 10/19/21 08:06 Pertinent Lab Results Pertinent Lab Results: Laboratory Tests 10/11/21 10/11/21 10/12/21 08:06 10:23 17:33 Sodium 140 140 Potassium 3.9 4.1 Chloride 110 H 110 H Carbon Dioxide 22 21 L Anion Gap 12 13 BUN 8 L 9 Creatinine 0.77 0.77 Estim Creat Clear Calc 83.6 83.6 Estimated GFR > 60 > 60 Fasting Glucose 96 114 H Calcium 9.0 D 8.8 Total Bilirubin 0.3 0.4 AST 18 D 21 ALT 21 19 Alkaline Phosphatase 72 D 70 Total Protein 6.1 L 6.1 L Albumin 3.5 3.5 Triglycerides 254 181 Cholesterol 164 158 LDL Cholesterol, Calc 82 89 HDL Cholesterol 32 33 Urine Test NEGATIVE 10/18/21 08:34 Sodium Potassium Chloride Carbon Dioxide Anion Gap BUN Creatinine 0.79 Estim Creat Clear Calc 81.0 Estimated GFR > 60 Fasting Glucose Calcium Total Bilirubin AST ALT Alkaline Phosphatase Total Protein Albumin Triglycerides Cholesterol LDL Cholesterol, Calc HDL Cholesterol Urine Test Airway Mallampati Class: II TM Dist: >3cm Neck ROM: Full Heart: rrr Lungs: cta Assessment and Plan Assessment Anesthesia Assessment: Anesthesia Plan Discussed and Chart Reviewed Final Anesthetic Review Family History of Problems with Anesthesia: No History of Problems with Anesthesia: No NPO: Yes ASA Class: III Final Preanesthetic Review: No Changes in Pt Med Stat, Meds/Allgs Chart Reviewed and Consent Obtained/Reviewed Patient Risk: Intermediate Procedure Risk: Intermediate Anesthetic Plan Anesthetic Plan: GA Disposition: Standard PACU
--- NOTE | 2021-10-22 07:50 | MHC.SHP ---
Pre-Procedural Eval Section A Date of Service: 10/22/21 The patient is an INPATIENT: Yes Changes since office visit: No Cold of Flu in the past 2 weeks, No New Medical Problems, No Changes in Medication and No Patient answered all questions The History & Physical has been completed within 30 days and I have reviewed it.: Yes Section B Chief Complaint: SI Allergies: Allergies Allergy/AdvReac Type Severity Reaction Status Date / Time gabapentin Allergy Unknown Verified 11/27/20 13:51 Plan I have reviewed the history and physical and performed a pertinent physical examination on my patient. No changes have occurred unless specified.
--- NOTE | 2021-10-22 08:04 | HO.ECTPROC ---
ECT Procedure Note Diagnosis/Treatment Date of Service: 10/22/21 Diagnosis: Major Depressive Disorder Previous ECT Date: 10/22/21 Current Treatment Number: 3 Treatment: Series Interval Clinical Notes: The patient reported mild improvmeent of dysphoria, no side effects with previous ECT. ECT Settings Device: THYMATRON DGx Electrode Placement: Right Unilateral Program/Pulse Width: 0.50 Energy Percent: 100 Seizure Duration By EEG (in seconds): 35 By Motor Observation (in seconds): 7 Medications Administration General Anesthetic: Etomidate (15) Muscle Relaxant: Succinylcholine (100) Ancillary Medications Analgesics: Torodol - Pre ECT Anti-emetics: Zofran - Pre ECT Airway Management Airway Management: Bag Mask Ventilation Treatment Recommendations No Changes Recommended: No change Pt Tolerated Procedure w/o Issue: Yes
[2021-10-22] MEDS: Midazolam HCl/PF 2 MG/2 ML VIAL IVPUSH (08:22)
[2021-10-22] MEDS: Acetaminophen 325 MG TABLET 650 MG PO (09:29)
[2021-10-22] MEDS: Ibuprofen 600 MG TABLET PO (10:37)
[2021-10-22] MEDS: Cyanocobalamin (Vitamin B-12) 1,000 MCG TABLET 1000 MCG PO (10:37)
[2021-10-22] MEDS: FLUoxetine HCl 20 MG CAPSULE 60 MG PO (10:37)
[2021-10-22] MEDS: Omeprazole 40 MG CAPSULE.DR PO (10:37)
[2021-10-22] MEDS: Levothyroxine Sodium 75 MCG TABLET PO (10:37)
[2021-10-22] MEDS: Cholecalciferol (Vitamin D3) 25 MCG TABLET PO (10:37)
[2021-10-22] MEDS: Topiramate 100 MG TABLET PO (10:37)
[2021-10-22] MEDS: metFORMIN HCl 500 MG TABLET PO (10:37)
[2021-10-22] MEDS: Sucralfate Oral Suspension 1 GM/10 ML ORAL.SUSP PO (11:26)
--- NOTE | 2021-10-22 13:00 | PM.PSYDC ---
DS: Providers Provider Date of Service: 10/22/21 Date of admission: 10/10/21 21:56 Date of discharge: 10/22/21 Primary care physician: Unknown Physician Attending physician on admission: Ludwin Timmons Consults: 10/12/21 16:56 Consult to Hospitalist Routine Consulting Provider: Hospitalist Reason For Exam: clearance for ECT Attending physician on discharge: Ludwin Timmons DS: Diagnosis Discharge Diagnosis (1) Chronic post-traumatic stress disorder (PTSD): Status: Acute (2) Major depressive disorder, recurrent severe without psychotic features: Status: Acute (3) Hypothyroidism: (4) Gastritis: Status: Acute DS: Medications Discharge Medications Home Medications: Home Medications Medication Instructions Recorded Confirmed cholecalciferol (vitamin D3) 25 25 mcg PO DAILY 10/07/21 10/10/21 mcg (1,000 unit) tablet cyanocobalamin (vitamin B-12) 1,000 mcg PO DAILY 10/07/21 10/10/21 1,000 mcg tablet fluoxetine 20 mg capsule 3 cap PO DAILY 10/07/21 10/10/21 hydroxyzine HCl 50 mg tablet 1 tab PO BEDTIME PRN Insomnia 10/07/21 10/10/21 levothyroxine 75 mcg tablet 1 tab PO QAM 10/07/21 10/10/21 (Synthroid) lorazepam 2 mg tablet 4 mg PO BID PRN Anxiety 10/07/21 10/10/21 metformin 500 mg tablet 1 tab PO BID 10/07/21 10/10/21 topiramate 100 mg tablet 100 mg PO DAILY 10/07/21 10/10/21 Previous Rx's Medication Instructions Recorded Probiotic Gx 1 tab PO DAILY ##0 10/22/21 clonidine HCl 0.1 mg tablet 0.1 mg PO BEDTIME PRN nighttime 10/22/21 anxiety/continued insomnia 30 days #30 tabs omeprazole 40 mg capsule,delayed 40 mg PO BID@0630,1630 30 days #60 10/22/21 release caps quetiapine 25 mg tablet 25 mg PO BEDTIME PRN insomnia 30 10/22/21 days #30 tabs sucralfate 100 mg/mL oral 1 g (10 mL) PO QIDACHS 30 days 10/22/21 suspension #1,000 mL sumatriptan succinate 25 mg tablet 25 mg PO Q2-4H PRN migraine 10/22/21 (Imitrex) headache 30 days #14 tabs Mental Status Exam Mental Status Exam Narrative: Pt is alert and oriented; behavior is cooperative, calm, friendly; dressed in casual attire with brushed hair, loosely pulled back and adequate hygiene; mood is described as really pretty decent and affect congruent, bright; eye contact appropriate; Speech is normal rate, volume and prosody and not pressured; no psychomotor agitation/retardation present; thought process is organized and goal directed; Thought content is on treatment as outpt, therapy...TC pertinent to relevant topics and without any delusional content, paranoid ideations or grandiosity; currently denies any SI; no HI. There is no evidence of perceptual disturbance. ?Patients insight and judgment are fair. Data Data Completed and Pending Completed studies during hospitalization [Text1]: 10/18/21 08:34 Creatinine 0.79 Estim Creat Clear Calc 81.0 Estimated GFR > 60 DS: Summary Hospital Course Hospital Course: Patient is a 51-year-old female with history of refractory depression, PTSD and body dysmorphia, who presents for worsening depression and suicide attempt by overdose in the face of having missed ketamine dose and increasing psychosocial stressors (Patient has been on ketamine 1/week for the past 1.5 years which Was only effective initially and when patient during a period of low stress). On admission, patient was depressed, tearful and saying she was ambivalent about whether she lived or . She was however eager for treatment and wanted to engage in ECT. Patient was also very forthcoming during interviews and felt relief as she was able to process some of her PTSD and mixed feelings about her relationships with her parents. Patient's mood improved. Telegraphic Typewriter Repairer and patient discussed treatment options. Patient's history of emotional trauma seems to significantly contribute to her chronic depression and literary writer strongly felt that consistent outpt, weekly therapy will likely be an essential component to treatment. While patient agreed, she also wanted something to immediately help with depression and having failed numerous medication trials, she elected to start ECT. Case was discussed with Dr. Mei who interviewed patient and agreed. She started ECT and overall tolerated it well, with intermittently getting headaches afterwards. Patient was also started on Wellbutrin however this caused sleep disturbance and was discontinued. Patient had trouble sleeping with frequent nightmares this was resolved by starting clonidine at bedtime. Trazodone was started for insomnia however it caused too much daytime sedation and she was instead started on low-dose Seroquel. After review of her history, she denied history of hypomanic episodes; her father concurred that she has never had any symptoms of margarette independent from years ago when she used to abuse crack cocaine. Telegraphic Typewriter Repairer also spoke with her outpatient psychiatrist Dr. Gonzalez who had some concerns for possible hypomania. That said patient was continued on Prozac which she has been on for years and feels is partially helpful. Patient continued to report improved mood and remained without any SI. By the end of her admission she said never again both realizing that does not want to hurt her parents and also that many of her impulsive, hurt feelings that lead to SI, are really mostly due to a misunderstanding her own feelings of which she feels she now has a much improved perspective. Patient was eager to re-engage in therapy and this was set up by social Work. After completing 2 ECT treatments, patient wanted to discharge and continue ECT as an outpatient. Patient's mood remained improved and depression and SI resolved. Patient felt confident that she would never again attempt any self-harm but discussed a safety plan and agreed to reach out for help immediately as soon as she started feeling it might be possible for her to become unsafe. Patient was future oriented, optimistic and in a good mood with bright affect. She was not in imminent risk for harm to self or others and her request for discharge honored. Following patient's overdose, she developed gastritis which was treated with omeprazole and carafate Dr. Gonzalez confirms that patient not tolerated numerous med trials. Reviewed list of failed medication trials which include the following: Prozac: partially helpful Zoloft Mirtazapine Effexor? Vrylar Latuda [place] Abilify Lamictal Rexulti? Seroquel? Zyprexa depakote Wellbutrin: interfered with sleep Time spent discussing smoking cessation with patient: 3 to 10 minutes Status at Discharge Functional status at discharge: independent ambulation Overall status at discharge: patient is back to baseline Time Spent with Patient Time attestation: Total time spent providing and/or coordinating discharge services: Time spent: Greater than 30 minutes Discharge Plan Discharge Patient Disposition: Home, Self-Care Discharge Diagnosis: MDD, recurrent, severe w/out psychotic features in partial remission Referrals: Information on obtaining outpatient therapy [Other] - 1 Week (Please visit the website [email or web address] where you can type in your location and health insurance coverage plan to find therapists in the area. You can learn more about each therapist and their specialties and email the therapist from the website to discuss setting up an intake appointment ) Physician,Unknown J [Primary Care Provider] - 1 Week Discharge Medications: New clonidine HCl 0.1 mg Tablet 0.1 mg PO BEDTIME PRN (Reason: nighttime anxiety/continued insomnia) 30 Days Qty: 30 0RF Protocol: Hold for SBP< HOLD for SBP < : 90 quetiapine 25 mg Tablet 25 mg PO BEDTIME PRN (Reason: insomnia) 30 Days Qty: 30 0RF omeprazole 40 mg Capsule,Delayed Release(Dr/Ec) 40 mg PO BID@0630,1630 30 Days Qty: 60 0RF sucralfate 100 mg/mL Suspension 1 g PO QIDACHS 30 Days Qty: 1000 0RF Probiotic Gx 1 tab PO DAILY Qty: 0 0RF sumatriptan succinate [Imitrex] 25 mg tablet 25 mg PO Q2-4H PRN (Reason: migraine headache) 30 Days Qty: 14 0RF Rx Instructions: do not exceed 8 doses per 24 hrs Continued metformin 500 mg tablet 1 tab PO BID hydroxyzine HCl 50 mg tablet 1 tab PO BEDTIME PRN (Reason: Insomnia) levothyroxine [Synthroid] 75 mcg tablet 1 tab PO QAM lorazepam 2 mg tablet 4 mg PO BID PRN (Reason: Anxiety) Label Comments: Pt reports this is incorrect. Pt says gets Ativan 2mg PO PRN anxiety QID, not 4mg BID. topiramate 100 mg tablet 100 mg PO DAILY fluoxetine 20 mg capsule 3 cap PO DAILY cyanocobalamin (vitamin B-12) 1,000 mcg Tablet 1,000 mcg PO DAILY cholecalciferol (vitamin D3) 25 mcg (1,000 unit) Tablet 25 mcg PO DAILY Discontinued oxycodone 5 mg capsule 1 - 2 cap PO TID PRN (Reason: pain) Discharge Orders: Discharge Order (Routine); Ordered 10/22/21 Ordered By: Ludwin Timmons Diet: regular diet Activity on Discharge: As tolerated Stand Alone Forms: Patient Portal Discharge page Care Plan Goals: Maintain mood and safe behaviors Take medications as prescribed Practice coping skills Continue with outpatient providers and reach out to them as needed Health Concerns: Mood stability and behaviors Migraine Headache Gastritis Diabetes Plan of Treatment: Follow up with your PCP, psychiatric provider and other outpatient providers regarding above concerns Take medications as prescribed Continue with ECT treatments, the next being 10/24/2021 Assessment: Risk assessment at time of discharge:? Patient was interviewed prior to discharge and found to be fully oriented and without any SI or HI. Patient has insight and demonstrates good judgment in terms of wanting to pursue treatment. Patient is not in imminent risk of harm to self or others and has a safety plan that includes presenting to the closest ER or calling 911 if feeling unsafe.? Patient has been observed closely by nursing and unit staff throughout admission; patient has not engaged in any behaviors that suggest dangerousness to self or others and has demonstrated appropriate behaviors and impulse control
== END 2021-10-22 14:40 | disposition home or self-care (01) | DRG 885 ==
PROVIDERS: Psychiatry & Neurology Psychiatry; Admitting Provider Psychiatry & Neurology Psychiatry; Visit Provider Psychiatry & Neurology Psychiatry
PROC: (CPT 90870; principal; 2021-10-17 08:00)
PROC: GZB4ZZZ Other Electroconvulsive Therapy (ICD-10-PCS; CPT 90870; principal; 2021-10-19 15:30)
DX: F33.2 Major depressive disorder, recurrent severe without psychotic features (principal); R45.851 Suicidal ideations; F43.12 Post-traumatic stress disorder, chronic; E03.9 Hypothyroidism, unspecified; E11.9 Type 2 diabetes mellitus without complications; F17.210 Nicotine dependence, cigarettes, uncomplicated; K29.70 Gastritis, unspecified, without bleeding; F45.22 Body dysmorphic disorder; Z91.14 Patient's other noncompliance with medication regimen; Z91.51 Personal history of suicidal behavior; Z71.6 Tobacco abuse counseling; Z79.84 Long term (current) use of oral hypoglycemic drugs; Z79.890 Hormone replacement therapy; Z79.899 Other long term (current) drug therapy
CPT/HCPCS: 36415; 80053; 80061; 81025; 82565; 90870; J0330; J1885; J2060; J2250; J2405

== ENCOUNTER 2021-10-24 06:05 | Day surgery (SDC) | payer MEDICARE, OTHER, SELFPAY ==
[2021-10-24] VITALS (8 sets, daily range): BP systolic 101–162; BP diastolic 54–94; PULSE 68–82; RESP 14–19; TEMP 36.1–36.4; O2SAT 94–99; BMI 26.2
[2021-10-24 06:42] LABS: COVID-19 Test Negative (Negative)
--- NOTE | 2021-10-24 06:52 | P.CONAN_ITS ---
[facility] Active Problems Active Problems: All Active Problems (Updated 10/18/21 @ 00:03 by Background Daemon) Gastritis (Acute) Chronic post-traumatic stress disorder (PTSD) (Acute) Major depressive disorder, recurrent severe without psychotic features (Acute) Intentional overdose (Acute) Depression (Acute) Suicidal ideation (Acute) Strain of right knee (Acute) Right knee pain (Acute) Strain of left knee (Acute) Past Medical History Medical History (Updated 10/18/21 @ 00:03 by Background Daemon) Diabetes Hypothyroidism Low vitamin B12 level Family History Family history of problems with anesthesia: No Surgical History History of Problems with Anesthesia: No Social History Social History Household Members: Unknown / Unable to assess Housing: Unknown / Unable to assess Do you presently have visiting nurse or other home services: No Patient Tobacco Use Status: Tobacco use Unknown Tobacco use type: Cigarette Cigarettes Per Day: 1 Second Hand Smoke Exposure: Yes Advance Directives: No Advance Directives Information Provided: Yes service: No Current occupational status: unemployed Sexual orientation: Straight/Heterosexual Meds Allergies Allergy/AdvReac Type Severity Reaction Status Date / Time gabapentin Allergy Unknown Verified 11/27/20 13:51 Home Medications Medication Instructions Recorded Confirmed Last Taken Type cholecalciferol (vitamin D3) 25 25 mcg PO DAILY 10/07/21 10/10/21 10/07/21 History mcg (1,000 unit) tablet cyanocobalamin (vitamin B-12) 1,000 mcg PO DAILY 10/07/21 10/10/21 10/07/21 History 1,000 mcg tablet fluoxetine 20 mg capsule 3 cap PO DAILY 10/07/21 10/10/21 10/07/21 History hydroxyzine HCl 50 mg tablet 1 tab PO BEDTIME PRN Insomnia 10/07/21 10/10/21 10/07/21 History levothyroxine 75 mcg tablet 1 tab PO QAM 10/07/21 10/10/21 10/07/21 History (Synthroid) lorazepam 2 mg tablet 4 mg PO BID PRN Anxiety 10/07/21 10/10/21 Unknown History metformin 500 mg tablet 1 tab PO BID 10/07/21 10/10/21 10/07/21 History topiramate 100 mg tablet 100 mg PO DAILY 10/07/21 10/10/21 10/07/21 History Exam Exam Date and Time: October 24, 2021 0652 Pertinent Lab Results Pertinent Lab Results: Laboratory Tests 10/24/21 06:15 COVID-19 ([facility]) Negative COVID-19 Clin Com See Note Airway Mallampati Class: II TM Dist: >3cm Neck ROM: Full Heart: rrr Lungs: cta Assessment and Plan Assessment Anesthesia Assessment: Anesthesia Plan Discussed and Chart Reviewed Final Anesthetic Review Family History of Problems with Anesthesia: No History of Problems with Anesthesia: No NPO: Yes ASA Class: III Final Preanesthetic Review: No Changes in Pt Med Stat, Meds/Allgs Chart Reviewed and Consent Obtained/Reviewed Patient Risk: Intermediate Procedure Risk: Intermediate Anesthetic Plan Anesthetic Plan: GA Disposition: Standard PACU
--- NOTE | 2021-10-24 07:09 | MHC.SHP ---
Pre-Procedural Eval Section A Date of Service: 10/24/21 The patient is an INPATIENT: No Changes since office visit: Yes Cold of Flu in the past 2 weeks, Yes New Medical Problems, Yes Changes in Medication and Yes Patient answered all questions The History & Physical has been completed within 30 days and I have reviewed it.: Yes Section B Chief Complaint: depression Allergies: Allergies Allergy/AdvReac Type Severity Reaction Status Date / Time gabapentin Allergy Unknown Verified 11/27/20 13:51 Plan I have reviewed the history and physical and performed a pertinent physical examination on my patient. No changes have occurred unless specified.
--- NOTE | 2021-10-24 07:38 | HO.ECTPROC ---
ECT Procedure Note Diagnosis/Treatment Date of Service: 10/24/21 Diagnosis: Major Depressive Disorder Previous ECT Date: 10/22/21 Current Treatment Number: 4 Treatment: Series Interval Clinical Notes: The patient reported mild improvement of dysphoria. Previous ECT session, she woke up agitated and anxious and needed Midazolam for anxiiety. ECT Settings Device: THYMATRON DGx Electrode Placement: Right Unilateral Program/Pulse Width: 0.50 Energy Percent: 100 Seizure Duration By EEG (in seconds): 44 By Motor Observation (in seconds): 20 Medications Administration General Anesthetic: Etomidate (16) Muscle Relaxant: Succinylcholine (100) Ancillary Medications Analgesics: Torodol - Pre ECT Anti-emetics: Zofran - Pre ECT Cardiovascular Medications: Glycopyrrolate Miscillaneous Medications: Midazolam Airway Management Airway Management: Bag Mask Ventilation Treatment Recommendations No Changes Recommended: No change Pt Tolerated Procedure w/o Issue: Yes
[2021-10-24] MEDS: LORazepam 1 MG TABLET 2 MG PO (07:59)
== END 2021-10-24 09:17 | disposition home or self-care (01) ==
PROVIDERS: Visit Provider Psychiatry & Neurology Psychiatry
PROC: (CPT 90870; principal; 2021-10-24 07:30)
DX: F33.2 Major depressive disorder, recurrent severe without psychotic features (principal); E11.9 Type 2 diabetes mellitus without complications; E53.8 Deficiency of other specified B group vitamins; E03.9 Hypothyroidism, unspecified; F43.12 Post-traumatic stress disorder, chronic; K29.00 Acute gastritis without bleeding; R45.851 Suicidal ideations; Z20.822 Contact with and (suspected) exposure to COVID-19; Z88.8 Allergy status to other drugs, medicaments and biological substances
CPT/HCPCS: 87635; 90870; J0330; J1885; J2250; J2405

== ENCOUNTER 2021-10-29 09:18 | Day surgery (SDC) | payer MEDICARE, OTHER, SELFPAY ==
[2021-10-29] VITALS (7 sets, daily range): BP systolic 100–174; BP diastolic 58–97; PULSE 81–96; RESP 16–20; TEMP 36.3–36.4; O2SAT 96–99; BMI 26.5
--- NOTE | 2021-10-29 06:44 | HO.ANESPROP2 ---
[facility] Active Problems Active Problems: All Active Problems (Updated 10/18/21 @ 00:03 by Background Daemon) Gastritis (Acute) Chronic post-traumatic stress disorder (PTSD) (Acute) Major depressive disorder, recurrent severe without psychotic features (Acute) Intentional overdose (Acute) Depression (Acute) Suicidal ideation (Acute) Strain of right knee (Acute) Right knee pain (Acute) Strain of left knee (Acute) Past Medical History Medical History (Updated 10/18/21 @ 00:03 by Background Daemon) Diabetes Hypothyroidism Low vitamin B12 level Family History Family history of problems with anesthesia: No Surgical History History of Problems with Anesthesia: No Social History Social History Household Members: Unknown / Unable to assess Housing: Unknown / Unable to assess Do you presently have visiting nurse or other home services: No Patient Tobacco Use Status: Tobacco use Unknown Tobacco use type: Cigarette Cigarettes Per Day: 1 Second Hand Smoke Exposure: Yes Advance Directives: No Advance Directives Information Provided: Yes service: No Current occupational status: unemployed Sexual orientation: Straight/Heterosexual Meds Allergies Allergy/AdvReac Type Severity Reaction Status Date / Time gabapentin Allergy Unknown Verified 11/27/20 13:51 Active Medications: Current Medications Lactated Ringer's (Lr) 1,000 mls @ 50 mls/hr IVCONT .Q20H [facility] Home Medications Medication Instructions Recorded Confirmed Last Taken Type cholecalciferol (vitamin D3) 25 25 mcg PO DAILY 10/07/21 10/10/21 10/07/21 History mcg (1,000 unit) tablet cyanocobalamin (vitamin B-12) 1,000 mcg PO DAILY 10/07/21 10/10/21 10/07/21 History 1,000 mcg tablet fluoxetine 20 mg capsule 3 cap PO DAILY 10/07/21 10/10/21 10/07/21 History hydroxyzine HCl 50 mg tablet 1 tab PO BEDTIME PRN Insomnia 10/07/21 10/10/21 10/07/21 History levothyroxine 75 mcg tablet 1 tab PO QAM 10/07/21 10/10/21 10/07/21 History (Synthroid) lorazepam 2 mg tablet 4 mg PO BID PRN Anxiety 10/07/21 10/10/21 Unknown History metformin 500 mg tablet 1 tab PO BID 10/07/21 10/10/2110/07/22 History topiramate 100 mg tablet 100 mg PO DAILY 10/07/21 10/10/21 10/07/21 History Exam Exam Date and Time: October 29, 2021 0644 Height,Weight and Vital Signs: Height 5 ft 3 in Weight 68.039 kg Last Vital Signs Temp 97.5 F 10/29/21 06:33 Pulse 90 10/29/21 06:33 Resp 20 10/29/21 06:33 BP 126/72 10/29/21 06:33 Pulse Ox 99 10/29/21 06:33 O2 Del Method 10/29/21 06:33 Airway Mallampati Class: II TM Dist: >3cm Neck ROM: Full Heart: rrr Lungs: cta Assessment and Plan Assessment Anesthesia Assessment: Anesthesia Plan Discussed and Chart Reviewed Final Anesthetic Review Family History of Problems with Anesthesia: No History of Problems with Anesthesia: No NPO: Yes ASA Class: III Final Preanesthetic Review: No Changes in Pt Med Stat, Meds/Allgs Chart Reviewed and Consent Obtained/Reviewed Patient Risk: Intermediate Procedure Risk: Intermediate Anesthetic Plan Anesthetic Plan: GA Disposition: Standard PACU
[2021-10-29 06:52] LABS: COVID-19 Test Negative (Negative)
--- NOTE | 2021-10-29 07:36 | MHC.SHP ---
Pre-Procedural Eval Section A Date of Service: 10/29/21 The patient is an INPATIENT: No Changes since office visit: Yes Changes in Medication and Yes Patient answered all questions; No Cold of Flu in the past 2 weeks and No New Medical Problems The History & Physical has been completed within 30 days and I have reviewed it.: Yes Section B Chief Complaint: depression Allergies: Allergies Allergy/AdvReac Type Severity Reaction Status Date / Time gabapentin Allergy Unknown Verified 11/27/20 13:51 Plan I have reviewed the history and physical and performed a pertinent physical examination on my patient. No changes have occurred unless specified.
--- NOTE | 2021-10-29 07:44 | HO.ECTPROC ---
ECT Procedure Note Diagnosis/Treatment Date of Service: 10/29/21 Diagnosis: Major Depressive Disorder Previous ECT Date: 10/24/21 Current Treatment Number: 5 Treatment: Series Interval Clinical Notes: pt remains depressed c/o headache post ect denies active si has moved out of mothers house ECT Settings Device: THYMATRON DGx Electrode Placement: Right Unilateral Program/Pulse Width: 0.50 Energy Percent: 100 Seizure Duration By EEG (in seconds): 33 Medications Administration General Anesthetic: Etomidate (16) Muscle Relaxant: Succinylcholine (100) Ancillary Medications Analgesics: Torodol - Pre ECT (30) and Acetaminophen (iv post) Anti-emetics: Zofran - Pre ECT (4) Cardiovascular Medications: Glycopyrrolate (pre) Miscillaneous Medications: Midazolam (2 iv ) Airway Management Airway Management: Bag Mask Ventilation Treatment Recommendations Notes: consider change to technique ? BF had post op hernandez needed midazolam iv tylenol
[2021-10-29] MEDS: LORazepam 1 MG TABLET 2 MG PO (08:19)
--- NOTE | 2021-10-30 14:07 | P.EN_ITS ---
Event Note Date of Service: 10/30/21 Event Note: last week Patient's father Faisal Paredes called and left a message with protective services social worker asking for technical document writer to call him back with a question about ECT. Captain Fishing Vessel called him today. Patient's father is concerned about her and is not sure if she attended ECT wanting to know. Captain Fishing Vessel explained HIPAA laws and that technical document writer could not give out any information. Patient's father said that patient moved out of her mother's since it was triggering is now staying at her friend's house (this was discussed during patients admission and pt was heavily leaning towards this decision). It seems though that last week Jigna and her mother got into an argument when pt moved out and at that time called or texted her father; he says she made a suicidal reference last week. Father he does not feel concerned enough to have her brought to the hospital. Patient's father asked of technical document writer roma quick call to which technical document writer agreed. Of note, patient did present for ECT yesterday on 10/29/21. Captain Fishing Vessel spoke with Dr. Mei who met with patient and reports that patient denied being suicidal. She explained that she recently moved out of her mother's house which she thinks was a very good move and is subsequently feeling better now that she staying at a friend's. She did express some debate whether not ECT is making much difference. Captain Fishing Vessel called patient. She explained she had a war with [her] mother and moved out. She explained she had a little bit of SI last week dealing with her mother and told her dad she rather just be ... but says it was a fleeting thought... the old jackie... and the thought passed. She says she's doing well enough and I'm feeling safe...i'm in a safe place with a good friend...i have no desire to try and hurt myself. She Has not called therapy yet, putting it off and saying part of me just doesn't want to do the work... of therapy but she agrees that she needs therapy and will make the calls. Said she got Ketamine yesterday which she found helpful. Pleasant, to talk to, organized thinking, demonstrating good insight and judgement; she expresses future oriented thinking, continuing to work and planning to get her own place once next paycheck comes in; she says I'm doing better than i was.
== END 2021-10-29 09:31 | disposition home or self-care (01) ==
LOC: HO.SSS 09:19
PROVIDERS: Visit Provider Psychiatry & Neurology Psychiatry
PROC: (CPT 90870; principal; 2021-10-29 08:00)
DX: F33.2 Major depressive disorder, recurrent severe without psychotic features (principal); R51.9 Headache, unspecified; F43.10 Post-traumatic stress disorder, unspecified; E11.9 Type 2 diabetes mellitus without complications; E03.9 Hypothyroidism, unspecified; Z79.899 Other long term (current) drug therapy; Z79.84 Long term (current) use of oral hypoglycemic drugs; Z88.8 Allergy status to other drugs, medicaments and biological substances; Z20.822 Contact with and (suspected) exposure to COVID-19
CPT/HCPCS: 87635; 90870; 92950; J0131; J0330; J1885; J2250; J2405

== ENCOUNTER 2023-12-12 02:40 | Emergency (ER) | payer MEDICARE, SELFPAY ==
[2023-12-12 02:47] VITALS: BMI 27.8
--- NOTE | 2023-12-12 02:47 | MHC.EDTECH ---
PATIENT WAS BIBA ,PT WAS RUNNER WORKER INTO HOSPITAL ATTIRE ,ALL PATIENT BELONGINGS ARE LOCKED UP IN DECON .
[2023-12-12 02:52] VITALS: BP 118/87; PULSE 92; RESP 18; TEMP 37.2; O2SAT 97
--- NOTE | 2023-12-12 02:59 | ED.ALCOHOL ---
HPI - Alcohol General Chief Complaint: ETOH/Substance Use Stated Complaint: etoh Time Seen by Provider: 12/12/23 02:56 Source: patient Mode of arrival: EMS Limitations: other (ETOH intoxication) History of Present Illness ED Provider: JOHNIE GASPAR narrative: 53 yo female who is very hard to interview she escalates from crying to then yelling and stating we are rednecks and fuck you, this [place]. [place] for [place] - admits to ETOH and cocaine use with her best friend of 35 years. She states her parents warned her about going out and that she would relapse. Patient states she is supposed to have her gallbladder removed tomorrow in [place]. She continues to yell and state she has terrible judgement and she is a [employer]. She has asked me for pain medications and tells me I don't care and I don't know how to treat pain. I did offer to obtain labs, ultrasound, and treat her but she refuses and is demanding that we call her family. NO SI/HI. MD complaint: alcohol intoxication Last drink: Hours (ago) Chronic alcohol use: No Previous visits for alcohol intoxication: No Recent trauma: No Associated symptoms: abdominal pain (states her GB hurts) Related Data Home Medications ?Medication ?Instructions ?Recorded ?Confirmed cholecalciferol (vitamin D3) 25 25 mcg PO DAILY 10/07/21 10/10/21 mcg (1,000 unit) tablet cyanocobalamin (vitamin B-12) 1,000 mcg PO DAILY 10/07/21 10/10/21 1,000 mcg tablet fluoxetine 20 mg capsule 3 cap PO DAILY 10/07/21 10/10/21 hydroxyzine HCl 50 mg tablet 1 tab PO BEDTIME PRN Insomnia 10/07/21 10/10/21 levothyroxine 75 mcg tablet 1 tab PO QAM 10/07/21 10/10/21 (Synthroid) lorazepam 2 mg tablet 4 mg PO BID PRN Anxiety 10/07/21 10/10/21 metformin 500 mg tablet 1 tab PO BID 10/07/21 10/10/21 topiramate 100 mg tablet 100 mg PO DAILY 10/07/21 10/10/21 Previous Rx's ?Medication ?Instructions ?Recorded Probiotic Gx 1 tab PO DAILY ##0 10/22/21 clonidine HCl 0.1 mg tablet 0.1 mg PO BEDTIME PRN nighttime 10/22/21 anxiety/continued insomnia 30 days #30 tabs omeprazole 40 mg capsule,delayed 40 mg PO BID@0630,1630 30 days #60 10/22/21 release caps ondansetron 4 mg disintegrating 4 mg PO Q8H 10 days #14 tabs 10/22/21 tablet quetiapine 25 mg tablet 25 mg PO BEDTIME PRN insomnia 30 10/22/21 days #30 tabs sucralfate 100 mg/mL oral 1 g (10 mL) PO QIDACHS 30 days 10/22/21 suspension #1,000 mL sumatriptan succinate 25 mg tablet 25 mg PO Q2-4H PRN migraine 10/22/21 (Imitrex) headache 30 days #14 tabs Allergies Allergy/AdvReac Type Severity Reaction Status Date / Time gabapentin Allergy Unknown Verified 12/12/23 02:49 [facility] Past Medical History Source: old records reviewed Medical History Chronic post-traumatic stress disorder (PTSD) Major depressive disorder, recurrent severe without psychotic features Low vitamin B12 level Hypothyroidism Diabetes Social History Social History Household Members: Unknown / Unable to assess Housing: Unknown / Unable to assess Do you presently have visiting nurse or other home services: No Patient Tobacco Use Status: Tobacco use Unknown Tobacco use type: Cigarette Cigarettes Per Day: 1 Second Hand Smoke Exposure: Yes Advance Directives: No Advance Directives Information Provided: Yes Do you have a plan to hurt others: No Plan service: No Current occupational status: unemployed Sexual orientation: Straight/Heterosexual Physical Exam ED Vital Signs: Vital Signs - 24 hr 12/12/23 02:52 12/12/23 05:46 Temperature 98.9 F 98.2 F Pulse Rate 92 103 H Respiratory Rate 18 17 Blood Pressure 118/87 131/98 H Pulse Oximetry 97 94 Oxygen Delivery Method Room Air Room Air BMI result Body Mass Index 27.8 Appearance: Alert. Oriented X3. Belligerent, strong ETOH odor, steady gait, mild acute distress. Eyes: Pupils equal, round and reactive to light. ENT: Pharynx normal. atrauamtic Neck: Normal inspection. Neck supple. CVS: tachycardic heart rate and rhythm. Pulses normal. Respiratory: No respiratory distress. Abdomen: atraumatic moving around off stretcher no issues Skin: Skin warm and dry. Normal skin color. Extremities: No lower extremity edema. Neuro: Oriented X 3. No motor deficit. No sensory deficit. Course Course Course Narrative: patient now agrees to labs and IVF IV ativan ordered she is aggressive and agitated she called her brother the brother was on the phone and is not coming to the hospital - she told him on the phone if he did not come and get her she would kill herself. Reevaluation(s) Reevaluation #1: now again declines treatment and wants to call mom to come get her Medical Decision Making Medical Decision Making MDM Narrative: 53 yo female with PMH of DM, anxiety, hypothyroidism here after ETOH and cocaine use found [place] gas station intoxicated no head trauma reported she is belligerent and rude here demanding we treat her for pain but then does not want labs or US done of her GB. She denies SI. She is not willing to comply with any work up but thinks she will be given pain medications for her gallbladder. I have asked her to do labs, IVF, US and EKG given the cocaine abuse but she refuses and demands we call her family. She then gets irrational and yells at staff calling them assholes and rednecks. She repeatedly says you need to give me pain management and that no one fucking cares about me Differential Diagnosis Differential Diagnoses: The differential diagnosis associated with the presentation includes alcohol abuse, drug abuse, anxiety Admission/Observation Consideration of admission/observation: Escalation of care including admission/observation considered monitor until clinically sober physician observation started at 635am pending repeat assessment she is actually doing a lot better and has improved labs go along with ETOH use Lab Data [facility] Lab Attestation statement: I reviewed the patient's lab results. 12/12/23 04:23 12/12/23 05:42 Labs: Lab Results 12/12/23 12/12/23 Range/Units 04:23 05:42 WBC 3.0 L (4.8-10.8) X10*3/uL RBC 4.64 (4.20-5.50) X10*6/uL Hgb 14.4 D (12.0-16.0) g/dl Hct 41.2 (37.0-47.0) % MCV 88.8 (80.0-98.0) fL MCH 31.0 (27.0-33.0) pg MCHC 35.0 (31.0-35.0) g/dl RDW 13.2 (11.0-16.0) % Plt Count 151 L (160-400) X10*3/uL MPV 10.0 (9.4-12.3) fL Immature Gran % (Auto) 0.0 (0.0-0.4) % Neut % (Auto) 47.5 (45-73) % Lymph % (Auto) 25.6 (20-40) % [place] % (Auto) 25.3 H (2-11) % Eos % (Auto) 0.3 (0-4) % Baso % (Auto) 1.3 (0-2) % Lymph # (Auto) 0.8 L (1.2-4.9) X10*3/uL [place] # (Auto) 0.8 (0.1-1.2) X10*3/uL Eos # (Auto) 0.0 (0.0-0.4) X10*3/uL Baso # (Auto) 0.0 (0.0-0.2) X10*3/uL Abs Immat Gran (auto) 0.00 (0.00-0.03) X10*3/uL Absolute Neuts (auto) 1.4 L (2.0-8.3) x10*3/uL Absolute Nucleated RBC 0.000 (0.0-0.012) X10*3/uL Nucleated RBC % (auto) 0.0 (0.0-0.2) /100WBC Smear Tech's Comments VERIFIED Sodium 136 (135-145) mmol/L Potassium 3.8 (3.3-5.1) mmol/L Chloride 103 (96-108) mmol/L Carbon Dioxide 16 L (22-29) mmol/L Anion Gap 21 H (12-20) BUN 34 H (9-16) mg/dL Creatinine 0.83 (0.5-1.4) mg/dL Estim Creat Clear Calc 70.5 Estimated GFR > 60 Random Glucose 67 (60-115) mg/dL Calcium 8.8 (8.4-10.2) mg/dL Magnesium 1.9 (1.6-2.6) mg/dL Total Bilirubin 0.4 (0.0-1.0) mg/dL Direct Bilirubin 0.1 (0.0-0.5) mg/dL AST 83 H (5-31) U/L ALT 40 H (0-31) U/L Alkaline Phosphatase 86 (39-117) U/L Total Protein 7.0 (6.5-8.0) g/dL Albumin 4.0 (3.5-5.0) g/dL Lipase 17 (8-78) U/L Ethyl Alcohol 123 mg/dL Independent Interpretation I performed an independent interpretation of an: EKG Interpretation: Rate: 103 Rhythm: sinus tach [place]: normal Normal P waves. Normal LINNETTE. Normal QRS complex. ST T wave : inverted t wave V1, nonspecific ST T wave changes inf leads qTC: 448 prior studies: no sig change The study has been interpreted contemporaneously by me. . Independent Historian Clinical information obtained from an independent historian. History obtained from or confirmed by: EMS External Record Review External record reviewed: Inpatient record Medications Administered Discontinued Medications Generic Name Dose Route Start Last Admin Trade Name Freq PRN Reason Stop Dose Admin Sodium Chloride 1,000 mls @ 999 mls/hr 12/12/23 04:06 12/12/23 05:29 Ns IV 12/12/23 05:06 Infused .Q1H1M ONE Infusion Lorazepam 2 mg 12/12/23 04:06 12/12/23 04:26 Lorazepam 2 Mg/Ml Vial IVPUSH 12/12/23 04:07 2 mg ONCE ONE Administration Ondansetron HCl 4 mg 12/12/23 04:06 12/12/23 04:27 Ondansetron Hcl 4 Mg/2 Ml Vial IVPUSH 12/12/23 04:07 4 mg ONCE ONE Administration Discharge Plan Discharge Clinical Impression: Alcoholic intoxication, Misuse of cocaine Patient Disposition: Still a Patient Instructions: Cocaine Abuse (ED), Alcohol Intoxication (ED) Additional Instructions: please follow up with your doctor and do not drink any alcohol stay hydrated and return for any worsening symptoms or concerns Prescriptions: No Action metformin 500 mg tablet 1 tab PO BID hydroxyzine HCl 50 mg tablet 1 tab PO BEDTIME PRN (Reason: Insomnia) levothyroxine [Synthroid] 75 mcg tablet 1 tab PO QAM lorazepam 2 mg tablet 4 mg PO BID PRN (Reason: Anxiety) Patient Comments: Pt reports this is incorrect. Pt says gets Ativan 2mg PO PRN anxiety QID, not 4mg BID. topiramate 100 mg tablet 100 mg PO DAILY fluoxetine 20 mg capsule 3 cap PO DAILY cyanocobalamin (vitamin B-12) 1,000 mcg Tablet 1,000 mcg PO DAILY cholecalciferol (vitamin D3) 25 mcg (1,000 unit) Tablet 25 mcg PO DAILY clonidine HCl 0.1 mg Tablet 0.1 mg PO BEDTIME PRN (Reason: nighttime anxiety/continued insomnia) 30 Days Qty: 30 0RF Protocol: Hold for SBP< HOLD for SBP < : 90 quetiapine 25 mg Tablet 25 mg PO BEDTIME PRN (Reason: insomnia) 30 Days Qty: 30 0RF omeprazole 40 mg Capsule,Delayed Release(Dr/Ec) 40 mg PO BID@0630,1630 30 Days Qty: 60 0RF sucralfate 100 mg/mL Suspension 1 g PO QIDACHS 30 Days Qty: 1000 0RF Probiotic Gx 1 tab PO DAILY Qty: 0 0RF sumatriptan succinate [Imitrex] 25 mg tablet 25 mg PO Q2-4H PRN (Reason: migraine headache) 30 Days Qty: 14 0RF Rx Instructions: do not exceed 8 doses per 24 hrs ondansetron 4 mg tablet,disintegrating 4 mg PO Q8H 10 Days Qty: 14 0RF Print Language: Hungarian
--- NOTE | 2023-12-12 03:01 | PC.NURSE ---
called dad with no success after pt request
--- NOTE | 2023-12-12 04:06 | ECG_ITS ---
Test Reason : INTOX Blood Pressure : / mmHG Vent. Rate : 103 BPM Atrial Rate : 103 BPM P-R Int : 162 ms QRS Dur : 082 ms QT Int : 342 ms P-R-T Axes : 063 093 004 degrees QTc Int : 448 ms Sinus tachycardia Possible Left atrial enlargement Rightward axis Borderline ECG When compared with ECG of 07-OCT-2021 07:15, Nonspecific T wave abnormality no longer evident in Lateral leads Referred By: Alisa Posey Electronically Signed By:Danielito Lehman
[2023-12-12] MEDS: 0.9 % Sodium Chloride 1,000 ML 999 ML IV (04:24)
[2023-12-12] MEDS: LORazepam 2 MG/ML VIAL IVPUSH (04:26)
[2023-12-12] MEDS: ondansetron HCL 4 MG/2 ML VIAL IVPUSH (04:27)
[2023-12-12 04:29] LABS: Basophils Percent Auto 1.3 % (0-2); Eosinophils Percent Auto 0.3 % (0-4); Hematocrit 41.2 % (37.0-47.0); Hemoglobin 14.4 g/dl (12.0-16.0); Lymphocytes Absolute Auto 0.8 X10*3/uL (1.2-4.9); Lymphocytes Percent Auto 25.6 % (20-40); MANUAL DIFF FLAG SCAN; Mean Corpuscular Volume 88.8 fL (80.0-98.0); Monocytes Absolute Auto 0.8 X10*3/uL (0.1-1.2); Monocytes Percent Auto 25.3 % (2-11); Neutrophils Absolute Auto 1.4 x10*3/uL (2.0-8.3); Neutrophils Percent Auto 47.5 % (45-73); Platelet Count 151 X10*3/uL (160-400); Red Blood Count 4.64 X10*6/uL (4.20-5.50); Red Cell Distribution Width 13.2 % (11.0-16.0); SCAN SMEAR FLAG 1
[2023-12-12 05:03] LABS: SLIDE REVIEW VERIFIED
[2023-12-12 05:46] VITALS: BP 131/98; PULSE 103; RESP 17; TEMP 36.8; O2SAT 94
[2023-12-12 06:03] LABS: Alanine Aminotransferase 40 U/L (0-31); Alkaline Phosphatase 86 U/L (39-117); Anion Gap 21 (12-20); Aspartate Amino Transferase 83 U/L (5-31); Bilirubin Direct 0.1 mg/dL (0.0-0.5); Bilirubin Total 0.4 mg/dL (0.0-1.0); Blood Urea Nitrogen 34 mg/dL (9-16); Calcium 8.8 mg/dL (8.4-10.2); Carbon Dioxide 16 mmol/L (22-29); Chloride 103 mmol/L (96-108); Creatinine Clr Calc Pharmacy 70.5; Estimated Glomerular Filt Rate > 60; Ethanol 123 mg/dL; Glucose Random 67 mg/dL (60-115); Lipase 17 U/L (8-78); Magnesium 1.9 mg/dL (1.6-2.6); Potassium 3.8 mmol/L (3.3-5.1); Sodium 136 mmol/L (135-145)
--- NOTE | 2023-12-12 09:09 | PC.NURSE ---
this RN, security, charge nurse at bedside to let patient know they are discharged, patient then got upset with staff stating that she has no where to go and we are kicking her to the streets. Pt then asked what she would like us to do that she is medically cleared and we are not going to do her surgery here for her gall stones.. Pt given a phone to call her family. At this time patient has 15 minutes until she is asked to make calls from the waiting room.
--- NOTE | 2023-12-12 09:34 | PC.NURSE ---
Security called to bedside to remove patient from room as she was refusing to leave , pt then continued to pull her iv out on her own, stating we are doing nothing for her.
[2023-12-12 09:41] VITALS: BP 0/0; PULSE 0; RESP 0; TEMP -17.7; TEMP 0; O2SAT 0
== END 2023-12-12 09:47 | disposition still patient (30) ==
PROVIDERS: Emergency Medicine; Emergency Provider Student in an Organized Health Care Education/Training Program
DX: F10.220 Alcohol dependence with intoxication, uncomplicated (principal); Y90.6 Blood alcohol level of 120-199 mg/100 ml; F14.10 Cocaine abuse, uncomplicated; E11.9 Type 2 diabetes mellitus without complications; F17.210 Nicotine dependence, cigarettes, uncomplicated; Z79.84 Long term (current) use of oral hypoglycemic drugs; Z79.899 Other long term (current) drug therapy
CPT/HCPCS: 36415; 80048; 80076; 80307; 83690; 83735; 85025; 93005; 96361; 96374; 96375; 99284; 99285; J2060; J2405

== ENCOUNTER → 2023-12-12 04:06 | Outpatient (BNV) | payer MEDICARE, SELFPAY | PROVIDERS: Emergency Provider Student in an Organized Health Care Education/Training Program; Visit Provider Internal Medicine Cardiovascular Disease | DX: R00.0 Tachycardia, unspecified (principal) | CPT/HCPCS: 93010 ==